=== PATIENT | male | born 1940 | race Caucasian/White ===

== ENCOUNTER 2017-08-17 13:24 | Inpatient (IN) | payer OTHER, MEDICARE ==
[2017-08-17] VITALS (9 sets, daily range): BP systolic 110–137; BP diastolic 52–81; PULSE 64–111; RESP 18–20; TEMP 97.7–98; O2SAT 91–98
[~2017-08-17] VITALS: Ht 177.8 cm; Wt 109.4 kg
[~2017-08-17 13:24] MED LIST: ASPI325T PO; ISOS30; LISI2.5T55 PO; METO50CR OR; SIMV80TA OR; SYMB80AE INH
[2017-08-17] MEDS ORDERED: ALLO100T PO (13:46)
[2017-08-17] MEDS ORDERED: APIX5TAB PO (13:46)
[2017-08-17] MEDS ORDERED: VITA10002 PO (13:46)
[2017-08-17] MEDS ORDERED: FURO40TA PO (13:46)
[2017-08-17] MEDS ORDERED: METO1TAB42 PO (13:46)
[2017-08-17] MEDS ORDERED: ASPI-516 CHEW (13:46)
[2017-08-17] MEDS ORDERED: SYMB80AE INH (13:46)
[2017-08-17] MEDS ORDERED: VITA1000 PO (13:46)
[2017-08-17] MEDS ORDERED: ROSU20 PO (13:46)
[2017-08-17] MEDS ORDERED: LISI10TA3 PO (13:46)
[2017-08-17] MEDS ORDERED: ISOS20TA PO (13:46)
[2017-08-17] MEDS ORDERED: SODIUM CHLORIDE 0.9% FLUSH 10 ML FLUSH IVF PRN (14:00)
[2017-08-17] MEDS: RESP: ALBUTEROL 2.5 MG/IPRATROPIUM 0.5 MG NEB (SCH) INH (14:00)
--- NOTE | 2017-08-17 14:13 | PD ---
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 Patient reports no sick contacts, reports that for the past 4-5 days, he has been coughing and bring up a thick greenish sputum. Reports that he has been feeling progressively shortness of breath today. Reports that he did have a fever on his first day of symptoms. Denies any recent travels/trips. He does follow up with Dr. Monk with cardiology. Reports that he was supposed to go for a holter monitor for abnormal rhythms - he thinks that he may have a fib as he is on eliquis and for an abnormal heart rhythm. PFSH Past Medical History Asthma: No Blood Disorders: No Anxiety: No Depression: No Heart Rhythm Problems: Yes Cancer: No Cardiac Catheterization: Yes Cardiovascular Problems: Yes (5 WAY BYPASS) High Cholesterol: Yes Chemotherapy: No Chest Pain: Yes Congestive Heart Failure: No COPD: No Coronary Artery Disease: Yes Diabetes: No Endocrine: No Genitourinary: No Hypertension: Yes Immune Disorder: No Musculoskeletal: No Neurologic: No Psychiatric: No Respiratory: Yes Myocardial Infarction: Yes Radiation Therapy: No Sleep Apnea: Yes Thyroid Disease: No PNEUMOCCOCAL Vaccine (Year): 1 Past Surgical History Cardiac Surgery: Yes Coronary Artery Bypass Graft: Yes (2002) Other Surgery: Yes (TUMOR LT SIDE OF NECK) Social History Alcohol Use: Yes (SOCIAL) Tobacco Use: Yes (ONE PACK DAILY) Allergies-Medications (Allergen,Severity, Reaction): Coded Allergies: No Known Allergies (Verified , 06/25/10) Reported Meds & Prescriptions Reported Meds & Active Scripts Active Reported Allopurinol 100 Mg Tab 100 Mg PO DAILY Eliquis (Apixaban) 5 Mg Tab 5 Mg PO BID Vitamin B-12 (Cyanocobalamin) 1,000 Mcg Tab 1,000 Mcg PO DAILY Metoprolol Succinate ER 24 HR (Metoprolol Succinate) 25 Mg Tab 25 Mg PO DAILY Furosemide 40 Mg Tab 40 Mg PO DAILY Vitamin D-1000 (Cholecalciferol) 1,000 Unit Tab 2,000 Units PO DAILY Lisinopril 10 Mg Tab 25 Mg PO DAILY Crestor (Rosuvastatin Calcium) 20 Mg Tab 20 Mg PO DAILY Isosorbide Mononitrate 20 Mg Tab 60 Mg PO DAILY Take 2 doses 7 hours apart. Symbicort Inh (Budesonide/Formoterol Fumarate) 80-4.5 Mcg/Act Aero 2 Puff INH Q12HR Aspirin 81 Mg Chew 81 Mg CHEW DAILY Review of Systems General / Constitutional: Positive: Fever Eyes: No: Visual changes HENT: No: Headaches Cardiovascular: Positive: Dyspnea on exertion, No: Chest Pain or Discomfort Respiratory: Positive: Cough, Shortness of Breath, Wheezing Gastrointestinal: No: Abdominal Pain Genitourinary: No: Dysuria Musculoskeletal: Positive: Edema, No: Pain Skin: No Rash Neurologic: No: Weakness Psychiatric: No: Depression Endocrine: No: Polydipsia Hematologic/Lymphatic: No: Easy Bruising Physical Exam Narrative GENERAL: moderate distress SKIN: Focused skin assessment warm/dry. HEAD: Atraumatic. Normocephalic. EYES: Pupils equal and round. No scleral icterus. No injection or drainage. ENT: No nasal bleeding or discharge. Mucous membranes pink and moist. NECK: Trachea midline. No JVD. CARDIOVASCULAR: Regular rate and rhythm. No murmur appreciated. RESPIRATORY: No accessory muscle use. Patient wheezing on exam. Breath sounds equal bilaterally. GASTROINTESTINAL: Abdomen soft, non-tender, nondistended. Hepatic and splenic margins not palpable. MUSCULOSKELETAL: No obvious deformities. No clubbing. No cyanosis. +2 pedal edema. NEUROLOGICAL: Awake and alert. No obvious cranial nerve deficits. Motor grossly within normal limits. Normal speech. PSYCHIATRIC: Appropriate mood and affect; insight and judgment normal. Data Data Last Documented VS Vital Signs Date Time Temp Pulse Resp B/P (MAP) Pulse Ox O2 Delivery O2 Flow Rate FiO2 08/17/17 15:01 94 20 137/81 (99) 97 Nasal Cannula 2.00 08/17/17 13:25 98.0 Orders Orders Electrocardiogram (08/17/17 13:47) Complete Blood Count With Diff (08/17/17 13:47) Comprehensive Metabolic Panel (08/17/17 13:47) Influenzae A/B Antigen (08/17/17 13:47) Urinalysis - C+S If Indicated (08/17/17 13:47) Blood Culture (08/17/17 13:47) Chest, Single Ap (08/17/17 13:47) Ecg Monitoring (08/17/17 13:47) Iv Access Insert/Monitor (08/17/17 13:47) Oximetry (08/17/17 13:47) Sodium Chloride 0.9% Flush (Ns Flush) (08/17/17 14:00) Albuterol-Ipratropium Neb (Duoneb Neb) (08/17/17 14:00) B-Type Natriuretic Peptide (08/17/17 13:47) Ckmb (Isoenzyme) Profile (08/17/17 13:47) Troponin I (08/17/17 13:47) Methylprednisolone So Succ Inj (Solumedr (08/17/17 15:45) Ceftriaxone Inj (Rocephin Inj) (08/17/17 15:45) Azithromycin Inj (Zithromax Inj) (08/17/17 15:45) Admit Order (Ed Use Only) (08/17/17 16:03) Labs Laboratory Tests Test 08/17/17 13:55 White Blood Count 11.1 TH/MM3 Red Blood Count 4.57 MIL/MM3 Hemoglobin 13.5 GM/DL Hematocrit 41.6 % Mean Corpuscular Volume 91.1 FL Mean Corpuscular Hemoglobin 29.5 PG Mean Corpuscular Hemoglobin Concent 32.4 % Red Cell Distribution Width 16.6 % Platelet Count 169 TH/MM3 Mean Platelet Volume 8.9 FL Neutrophils (%) (Auto) 86.3 % Lymphocytes (%) (Auto) 5.1 % Monocytes (%) (Auto) 8.4 % Eosinophils (%) (Auto) 0.0 % Basophils (%) (Auto) 0.2 % Neutrophils # (Auto) 9.6 TH/MM3 Lymphocytes # (Auto) 0.6 TH/MM3 Monocytes # (Auto) 0.9 TH/MM3 Eosinophils # (Auto) 0.0 TH/MM3 Basophils # (Auto) 0.0 TH/MM3 CBC Comment DIFF FINAL Differential Comment Blood Urea Nitrogen 61 MG/DL Creatinine 3.37 MG/DL Random Glucose 115 MG/DL Total Protein 7.5 GM/DL Albumin 3.3 GM/DL Calcium Level 8.6 MG/DL Alkaline Phosphatase 112 U/L Aspartate Amino Transf (AST/SGOT) 19 U/L Alanine Aminotransferase (ALT/SGPT) 33 U/L Total Bilirubin 2.2 MG/DL Sodium Level 142 MEQ/L Potassium Level 4.5 MEQ/L Chloride Level 106 MEQ/L Carbon Dioxide Level 26.2 MEQ/L Anion Gap 10 MEQ/L Estimat Glomerular Filtration Rate 18 ML/MIN Total Creatine Kinase 52 U/L Troponin I LESS THAN 0.02 NG/ML B-Type Natriuretic Peptide 455 PG/ML MDM Medical Decision Making Medical Screen Exam Complete: Yes Emergency Medical Condition: Yes Medical Record Reviewed: Yes Interpretation(s) EKG at 1358: Afib at 99bpm, qt/qtc: 380/436, no acute st or t wave changes Vital Signs Date Time Temp Pulse Resp B/P (MAP) Pulse Ox O2 Delivery O2 Flow Rate FiO2 08/17/17 13:25 98.0 102 20 127/64 (85) 91 Room Air Differential Diagnosis chf exacerbation, copd, pneumonia, influenza, acs Narrative Course During the course of the patients emergency department visit, the patients history, examination, and differential diagnosis were reviewed with the patient. The patient was placed on a monitor tech with oximetry and frequent blood pressure monitoring. The patient had 20 gauge IV access obtained and blood work sent for analysis. The patient was initially provided: duoneb, steroids, and azithromycin and rocephin The patients laboratory studies were reviewed and remarkable for: Laboratory Tests Test 08/17/17 13:55 White Blood Count 11.1 TH/MM3 (4.0-11.0) Red Blood Count 4.57 MIL/MM3 (4.50-5.90) Hemoglobin 13.5 GM/DL (13.0-17.0) Hematocrit 41.6 % (39.0-51.0) Mean Corpuscular Volume 91.1 FL (80.0-100.0) Mean Corpuscular Hemoglobin 29.5 PG (27.0-34.0) Mean Corpuscular Hemoglobin Concent 32.4 % (32.0-36.0) Red Cell Distribution Width 16.6 % (11.6-17.2) Platelet Count 169 TH/MM3 (150-450) Mean Platelet Volume 8.9 FL (7.0-11.0) Neutrophils (%) (Auto) 86.3 % (16.0-70.0) Lymphocytes (%) (Auto) 5.1 % (9.0-44.0) Monocytes (%) (Auto) 8.4 % (0.0-8.0) Eosinophils (%) (Auto) 0.0 % (0.0-4.0) Basophils (%) (Auto) 0.2 % (0.0-2.0) Neutrophils # (Auto) 9.6 TH/MM3 (1.8-7.7) Lymphocytes # (Auto) 0.6 TH/MM3 (1.0-4.8) Monocytes # (Auto) 0.9 TH/MM3 (0-0.9) Eosinophils # (Auto) 0.0 TH/MM3 (0-0.4) Basophils # (Auto) 0.0 TH/MM3 (0-0.2) CBC Comment DIFF FINAL Differential Comment Blood Urea Nitrogen 61 MG/DL (7-18) Creatinine 3.37 MG/DL (0.60-1.30) Random Glucose 115 MG/DL (74-106) Total Protein 7.5 GM/DL (6.4-8.2) Albumin 3.3 GM/DL (3.4-5.0) Calcium Level 8.6 MG/DL (8.5-10.1) Alkaline Phosphatase 112 U/L (45-117) Aspartate Amino Transf (AST/SGOT) 19 U/L (15-37) Alanine Aminotransferase (ALT/SGPT) 33 U/L (12-78) Total Bilirubin 2.2 MG/DL (0.2-1.0) Sodium Level 142 MEQ/L (136-145) Potassium Level 4.5 MEQ/L (3.5-5.1) Chloride Level 106 MEQ/L (98-107) Carbon Dioxide Level 26.2 MEQ/L (21.0-32.0) Anion Gap 10 MEQ/L (5-15) Estimat Glomerular Filtration Rate 18 ML/MIN (>89) Total Creatine Kinase 52 U/L (39-308) Troponin I LESS THAN 0.02 NG/ML B-Type Natriuretic Peptide 455 PG/ML (0-100) Radiology studies were reviewed and remarkable for: Last Impressions Chest X-Ray 08/17/17 4337 Signed Impressions: Service Date/Time: Thursday, August 17, 2017 14:19 - CONCLUSION: 1. Compensated cardiomegaly. 2. Postsurgical changes characteristic of prior CABG. 3. No acute infiltrate. Piter Aponte MD wbc 11.1, hbg 13.5, hct 41.6, platelet 169 bun/cr: 61/3.37 - patient reports that he is currently being worked up for "kidney issues" and last cr was 3.0 Patient has been pancultured, will treat for brochitis with azithromycin and rocephin. case reviewed with dr. alvarenga who accepts pt to service for observation Diagnosis Primary Impression: Acute bronchitis Qualified Codes: J20.9 - Acute bronchitis, unspecified Additional Impression: Renal failure (ARF), acute on chronic Qualified Codes: N17.9 - Acute kidney failure, unspecified; N18.9 - Chronic kidney disease, unspecified Admitting Information Admitting Physician Requests: Observation Aleta Laguna DO Aug 17, 2017 14:13
[2017-08-17 14:45] LABS: AUTOMATED NEUTROPHIL # 9.6 TH/MM3 (1.8-7.7); BASOPHIL % 0.2 % (0.0-2.0); HEMATOCRIT 41.6 % (39.0-51.0); HEMO FLAGS DIFF FINAL; LYMPH % 5.1 % (9.0-44.0); LYMPHOCYTE # 0.6 TH/MM3 (1.0-4.8); MEAN CELL VOLUME 91.1 FL (80.0-100.0); MEAN CORPUSCULAR HEMOGLOBIN 29.5 PG (27.0-34.0); MEAN CORPUSCULAR HGB CONC 32.4 % (32.0-36.0); MONO % 8.4 % (0.0-8.0); NEUT % 86.3 % (16.0-70.0); PLATELET COUNT 169 TH/MM3 (150-450); RED BLOOD COUNT 4.57 MIL/MM3 (4.50-5.90); RED CELL DISTRIBUTION WIDTH 16.6 % (11.6-17.2); WHITE BLOOD COUNT 11.1 TH/MM3 (4.0-11.0)
[2017-08-17 15:04] LABS: ALT (GPT) 33 U/L (12-78); ANION GAP 10 MEQ/L (5-15); AST (GOT) 19 U/L (15-37); BICARBONATE 26.2 MEQ/L (21.0-32.0); BLOOD UREA NITROGEN 61 MG/DL (7-18); CHLORIDE 106 MEQ/L (98-107); GLOMERULAR FILTRATION RATE 18 ML/MIN (>89); POTASSIUM 4.5 MEQ/L (3.5-5.1); SODIUM (NA) 142 MEQ/L (136-145)
--- NOTE | 2017-08-17 15:06 | RADRPT ---
EXAM DATE/TIME: 08/17/2017 14:19 [facility] COMPARISON: No previous studies available for comparison. INDICATIONS : Shortness of breath, coughing MEDICAL HISTORY : Hypertension. SURGICAL HISTORY : CABG. ENCOUNTER: Initial ACUITY: 4 - 6 days PAIN SCORE: 0/10 LOCATION: Bilateral chest FINDINGS: A single view of the chest demonstrates lungs to be symmetrically aerated with no acute infiltrate or effusion. Heart size is prominent but appears to be well compensated. Postsurgical changes with find ings of prior CABG and possibly a CALZADA graft. CONCLUSION: 1. Compensated cardiomegaly. 2. Postsurgical changes characteristic of prior CABG. 3. No acute infiltrate. Piter Aponte MD on August 17, 2017 at 15:01 Board Certified Radiologist. This report was verified electronically.
[2017-08-17 15:07] LABS: ALKALINE PHOSPHATASE 112 U/L (45-117); TOTAL BILIRUBIN ADULT 2.2 MG/DL (0.2-1.0)
[2017-08-17 15:09] LABS: CREATINE KINASE 52 U/L (39-308)
[2017-08-17] MEDS ORDERED: AZITHROMYCIN INJ 500 MG in SODIUM CHLOR 0.9% 250 ML INJ 250 ML IV ONE (15:45)
[2017-08-17] MEDS ORDERED: cefTRIAXone INJ 1,000 MG in SODIUM CHLORIDE 0.9% INJ 100 ML IV ONE (15:45)
[2017-08-17] MEDS ORDERED: methylPREDNISolone SOD SUCC 125 MG/2 ML VIAL IV PUSH ONE (15:45)
[2017-08-17] MEDS ORDERED: NALOXONE HCL 0.4 MG/ML AMP IV PUSH PRN (16:15)
[2017-08-17] MEDS ORDERED: LACTULOSE SYRUP 20 GM/30 ML CUP PO PRN (16:15)
[2017-08-17] MEDS ORDERED: ONDANSETRON HCL 4 MG/2 ML VIAL IVP PRN (16:15)
[2017-08-17] MEDS ORDERED: BISACODYL 10 MG SUPP RECTAL PRN (16:15)
[2017-08-17] MEDS ORDERED: SENNOSIDES 8.6 MG TAB PO PRN (16:15)
[2017-08-17] MEDS ORDERED: MAGNESIUM HYDROXIDE SUSP 30 ML CUP PO PRN (16:15)
[2017-08-17] MEDS ORDERED: SODIUM CHLORIDE 0.9% FLUSH 10 ML FLUSH IV FLUSH PRN (16:15)
[2017-08-17 17:01] LABS: BLOOD, URINE NEG (NEG); COMMENT (UR) CULT NOT INDICATED; CULTURE IF INDICATED CULT NOT INDICATED; GLUCOSE,URINE NEG (NEG); HYALINE CAST, URINE 23 /lpf (RARE); KETONE, URINE NEG (NEG); MUCUS URINE FEW /lpf (OCC); NITRITE,URINE NEG (NEG); URINE COLOR YELLOW (YELLW/STRAW)
--- NOTE | 2017-08-17 17:24 | HHI.HP ---
HPI Service [facility] Primary Care Physician López Turner MD Admission Diagnosis COPD exacerbation Diagnoses: Chief Complaint: Increasing cough, increasing shortness of breath, expectorating green phlegm Travel History International Travel<30 Days: No Contact w/Intl Traveler <30 Da: No Traveled to Known Affected Are: No History of Present Illness Written by Josesito Luna, acting as scribe for Dr. Marquez on 08/17/17 at 17: 10. Patient is a 77-year-old male with primary medical history of HTN, CAD, gout, HLD, CKD 3, atrial fibrillation who came into the hospital with increasing shortness of breath, cough for 4-5 days, expectoration of green phlegm. Patient states for the past 4-5 days he is coughing and getting short of breath. As per significant other who was at the bedside, patient has orthopnea and able to "lay down in bed for the past 4-5 days, febrile 100. something." Patient also complains of abdominal pain secondary to increased coughing. Reports bilateral lower extremity edema that has been ongoing problem but if he elevates his legs it decreases in size. Patient is being followed by Dr. Monk in outpatient, denies he has any history of congestive heart failure but he is being worked up right now at Dr. Monk's office work and he is due for a Holter monitor. Patient and significant other states that they were just at the office of Dr. Monk prior to do stress test. They're unaware of any echocardiogram however did not know if it is being done. Patient is also due for a renal ultrasound study this week and also a liver ultrasound. Denies pain and discomfort. Denies chest pain, palpitations, headaches, dizziness. Denies n/v/d. Denies dysuria. Review of Systems Except as stated in HPI: all other systems reviewed are Neg Past Family Social History Past Medical History HTN Gout CAD HLD A. fib ?CHF Past Surgical History CABG 5 Reported Medications Reported Meds & Active Scripts Active Reported Allopurinol 100 Mg Tab 100 Mg PO DAILY Eliquis (Apixaban) 5 Mg Tab 5 Mg PO BID Vitamin B-12 (Cyanocobalamin) 1,000 Mcg Tab 1,000 Mcg PO DAILY Metoprolol Succinate ER 24 HR (Metoprolol Succinate) 25 Mg Tab 25 Mg PO DAILY Furosemide 40 Mg Tab 40 Mg PO DAILY Vitamin D-1000 (Cholecalciferol) 1,000 Unit Tab 2,000 Units PO DAILY Lisinopril 10 Mg Tab 25 Mg PO DAILY Crestor (Rosuvastatin Calcium) 20 Mg Tab 20 Mg PO DAILY Isosorbide Mononitrate 20 Mg Tab 60 Mg PO DAILY Take 2 doses 7 hours apart. Symbicort Inh (Budesonide/Formoterol Fumarate) 80-4.5 Mcg/Act Aero 2 Puff INH Q12HR Aspirin 81 Mg Chew 81 Mg CHEW DAILY Allergies: Coded Allergies: No Known Allergies (Verified , 06/25/10) Active Ordered Medications Current Medications Medications (Trade) Dose Ordered Sig/Melody Route Start Time Stop Time Status Last Admin (NS Flush) 2 ml UNSCH PRN IV FLUSH 08/17/17 16:15 (NS Flush) 2 ml BID IV FLUSH 08/17/17 21:00 (Zofran Inj) 4 mg Q6H PRN IVP 08/17/17 16:15 (Heparin Inj) 5,000 units Q12H SQ 08/17/17 17:00 (Narcan Inj) 0.4 mg UNSCH PRN IV PUSH 08/17/17 16:15 (Milk Of Magnesia Liq) 30 ml Q12H PRN PO 08/17/17 16:15 (Senokot) 17.2 mg Q12H PRN PO 08/17/17 16:15 (Dulcolax Supp) 10 mg DAILY PRN RECTAL 08/17/17 16:15 (Lactulose Liq) 30 ml DAILY PRN PO 08/17/17 16:15 Ceftriaxone Sodium 1000 mg/ Sodium Chloride 100 ml @ 200 mls/hr Q24H IV 08/18/17 16:00 (Zithromax) 250 mg DAILY PO 08/18/17 09:00 (Duoneb Neb) 1 ampule Q6HR NEB NEB 08/17/17 22:00 (Deltasone) 20 mg BID PO 08/17/17 21:00 Family History Dad of cancer Mom natural Social History Occasional alcohol use [place], quit a month ago has been smoking 2 pack per week prior to quitting, has history of 1 pack per day 30 years Denies illicit drug use Physical Exam Vital Signs Vital Signs Date Time Temp Pulse Resp B/P (MAP) Pulse Ox O2 Delivery O2 Flow Rate FiO2 08/17/17 15:01 94 20 137/81 (99) 97 Nasal Cannula 2.00 08/17/17 14:05 97 Nasal Cannula 2.00 08/17/17 13:25 98.0 102 20 127/64 (85) 91 Room Air Physical Exam GENERAL: This is a well-nourished, well-developed patient, in no apparent distress. SKIN: Cool and dry. HEAD: Atraumatic. Normocephalic. No temporal or scalp tenderness. EYES: Pupils equal round and reactive. Extraocular motions intact. No scleral icterus. No injection or drainage. ENT: Nose without bleeding. Uvula midline. Airway patent. NECK: Trachea midline. Supple. CARDIOVASCULAR: Regular rate and rhythm without murmurs, gallops, or rubs. RESPIRATORY: Crackles. Minimal wheezes. Coarse Breath sounds. GASTROINTESTINAL: Abdomen soft, non-tender, nondistended. No hepato-splenomegaly , or palpable masses. No guarding. MUSCULOSKELETAL: Extremities without clubbing, cyanosis. Bilateral lower extremity +2 edema NEUROLOGICAL: Awake and alert. Cranial nerves II through XII intact. Motor and sensory grossly within normal limits. Normal speech. Laboratory Laboratory Tests Test 08/17/17 13:55 08/17/17 16:02 White Blood Count 11.1 Red Blood Count 4.57 Hemoglobin 13.5 Hematocrit 41.6 Mean Corpuscular Volume 91.1 Mean Corpuscular Hemoglobin 29.5 Mean Corpuscular Hemoglobin Concent 32.4 Red Cell Distribution Width 16.6 Platelet Count 169 Mean Platelet Volume 8.9 Neutrophils (%) (Auto) 86.3 Lymphocytes (%) (Auto) 5.1 Monocytes (%) (Auto) 8.4 Eosinophils (%) (Auto) 0.0 Basophils (%) (Auto) 0.2 Neutrophils # (Auto) 9.6 Lymphocytes # (Auto) 0.6 Monocytes # (Auto) 0.9 Eosinophils # (Auto) 0.0 Basophils # (Auto) 0.0 CBC Comment DIFF FINAL Differential Comment Blood Urea Nitrogen 61 Creatinine 3.37 Random Glucose 115 Total Protein 7.5 Albumin 3.3 Calcium Level 8.6 Alkaline Phosphatase 112 Aspartate Amino Transf (AST/SGOT) 19 Alanine Aminotransferase (ALT/SGPT) 33 Total Bilirubin 2.2 Sodium Level 142 Potassium Level 4.5 Chloride Level 106 Carbon Dioxide Level 26.2 Anion Gap 10 Estimat Glomerular Filtration Rate 18 Total Creatine Kinase 52 Troponin I LESS THAN 0.02 B-Type Natriuretic Peptide 455 Urine Color YELLOW Urine Turbidity HAZY Urine pH 5.0 Urine Specific [place] 1.013 Urine Protein 30 Urine Glucose (UA) NEG Urine Ketones NEG Urine Occult Blood NEG Urine Nitrite NEG Urine Bilirubin NEG Urine Urobilinogen 2.0 Urine Leukocyte Esterase NEG Urine WBC 2 Urine Hyaline Casts 23 Urine Mucus FEW Microscopic Urinalysis Comment CULT NOT INDICATED Date/Time Source Procedure Growth Status 08/17/17 14:00 Blood Peripheral Aerobic Blood Culture Pending Received 08/17/17 14:00 Blood Peripheral Anaerobic Blood Culture Pending Received 08/17/17 15:00 Nasal Washing Influenza Types A,B Antigen (CLAUDIA) - Final NEGATIVE FOR FLU A AND B ANTIGEN.... Complete Result Diagram: 08/17/17 1355 08/17/17 1355 Caprini VTE Risk Assessment Caprini VTE Risk Assessment: Mod/High Risk (score >= 2) Caprini Risk Assessment Model Point Value = 1 Point Value = 2 Point Value = 3 Point Value = 5 Age 41-60 Minor surgery BMI > 25 kg/m2 Swollen legs Varicose veins or History of unexplained or recurrent spontaneous Oral contraceptives or hormone replacement Sepsis (< 1 month) Serious lung disease, including pneumonia (< 1 month) Abnormal pulmonary function Acute myocardial infarction Congestive heart failure (< 1 month) History of inflammatory bowel disease Medical patient at bed rest Age 61-74 Arthroscopic surgery Major open surgery (> 45 min) Laparoscopic surgery (> 45 min) Malignancy Confined to bed (> 72 hours) Immobilizing plaster cast Central venous access Age >= 75 History of VTE Family history of VTE Factor V Leiden Prothrombin [id number] Lupus anticoagulant Anticardiolipin antibodies Elevated serum homocysteine Heparin-induced thrombocytopenia Other congenital or acquired thrombophilia Stroke (< 1 month) Elective arthroplasty Hip, pelvis, or leg fracture Acute spinal cord injury (< 1 month) Prophylaxis Regimen Total Risk Factor Score Risk Level Prophylaxis Regimen 0-1 Low Early ambulation 2 Moderate Order ONE of the following: *Sequential Compression Device (SCD) *Heparin 5000 units SQ BID 3-4 Higher Order ONE of the following medications: *Heparin 5000 units SQ TID *Enoxaparin/Lovenox 40 mg SQ daily (WT < 150 kg, CrCl > 30 mL/min) *Enoxaparin/Lovenox 30 mg SQ daily (WT < 150 kg, CrCl > 10-29 mL/min) *Enoxaparin/Lovenox 30 mg SQ BID (WT < 150 kg, CrCl > 30 mL/min) AND/OR *Sequential Compression Device (SCD) 5 or more Highest Order ONE of the following medications: *Heparin 5000 units SQ TID (Preferred with Epidurals) *Enoxaparin/Lovenox 40 mg SQ daily (WT < 150 kg, CrCl > 30 mL/min) *Enoxaparin/Lovenox 30 mg SQ daily (WT < 150 kg, CrCl > 10-29 mL/min) *Enoxaparin/Lovenox 30 mg SQ BID (WT < 150 kg, CrCl > 30 mL/min) AND *Sequential Compression Device (SCD) Assessment and Plan Problem List: (1) Renal failure (ARF), acute on chronic ICD Code: N17.9 - Acute kidney failure, unspecified; N18.9 - Chronic kidney disease, unspecified Status: Acute Assessment and Plan Patient is a 77-year-old male with primary medical history of HTN, CAD, gout, HLD, CKD 3, atrial fibrillation who came into the hospital with increasing shortness of breath, cough for 4-5 days, expectoration of green phlegm. COPD exacerbation vs CHF exacerbation Acute Bronchitis - Suspect CHF hx CABG, Suspect COPD exacerbation former smoker - Chest x-ray showed compensated cardiomegaly. 2. Postsurgical changes characteristic of prior CABG no acute infiltrate - BNP 455, edema - Check blood cultures - IV antibiotic ceftriaxone, azithromycin IV - Prednisone 20 mg twice a day - DuoNeb scheduled, when necessary - Follow up labs in a.m. - Check serial troponin, check serial EKG - Consult Dr. Monk - Echocardiogram Acute kidney injury, on chronic kidney disease stage III - WELL TESTER 3.37/ BUN 61 - Avoid nephrotoxins - May need gentle fluid hydration. Monitor for fluid overload. - Monitor renal indicis - Patient is being seen by Dr. Arnel Turner, we'll ask nursing to give medical information on patient's previous creatinine. - Patient is due for a renal ultrasound in outpatient as per his report. May consider US kidneys. DVT prop SCDs Code Status Full code Discussed Condition With Patient, nursing, ED attending Physician Certification 2 Midnight Certification Type: Admission for Inpatient Services Order for Inpatient Services The services are ordered in accordance with Medicare regulations or non- Medicare payer requirements, as applicable. In the case of services not specified as inpatient-only, they are appropriately provided as inpatient services in accordance with the 2-midnight benchmark. Estimated LOS (days): 2 days is the estimated time the patient will need to remain in the hospital, assuming treatment plan goals are met and no additional complications. Post-Hospital Plan: Home Notes: This note was transcribed by janny Luna. I, Dr. Mango Marquez personally performed the history, physical exam, and medical decision making; and confirmed the accuracy of the information in the transcribed note. Authenticated by Dr. Mango Marquez on 08/17/17 at 22:59. Problem Qualifiers (1) Renal failure (ARF), acute on chronic: Qualified Codes: N17.9 - Acute kidney failure, unspecified; N18.9 - Chronic kidney disease, unspecified Josesito Zelaya Aug 17, 2017 17:24 Mango Marquez MD Aug 17, 2017 23:00
[2017-08-17] MEDS: HEPARIN SODIUM - SQ 10,000 UNITS/ML VIAL SQ SCH (17:55)
[2017-08-17] MEDS ORDERED: FUROSEMIDE 40 MG/4 ML VIAL IV PUSH ONE (18:45)
[2017-08-17] MEDS: SODIUM CHLORIDE 0.9% FLUSH 10 ML FLUSH IV FLUSH SCH (20:13)
[2017-08-17] MEDS: predniSONE 20 MG TAB PO SCH (20:13)
[2017-08-17] MEDS: BUDESONIDE-FORMOTEROL 80/4.5 MCG INHALER INH SCH (20:14)
[2017-08-17] MEDS ORDERED: APIXABAN 5 MG TABLET PO SCH (21:00)
[2017-08-17] MEDS: RESP: ALBUTEROL 2.5 MG/IPRATROPIUM 0.5 MG NEB (SCH) NEB (21:02)
[2017-08-18] VITALS (13 sets, daily range): BP systolic 102–133; BP diastolic 56–89; PULSE 97–152; RESP 16–20; TEMP 97.5–98.8; O2SAT 93–96
[2017-08-18] MEDS: RESP: ALBUTEROL 2.5 MG/IPRATROPIUM 0.5 MG NEB (SCH) NEB ×4 (03:58→20:14)
[2017-08-18] MEDS: HEPARIN SODIUM - SQ 10,000 UNITS/ML VIAL SQ SCH ×2 (05:19→16:45)
[2017-08-18 07:48] LABS: AUTOMATED NEUTROPHIL # 9.2 TH/MM3 (1.8-7.7); HEMATOCRIT 42.4 % (39.0-51.0); HEMO FLAGS DIFF FINAL; LYMPHOCYTE # 0.3 TH/MM3 (1.0-4.8); MEAN CELL VOLUME 92.2 FL (80.0-100.0); MEAN CORPUSCULAR HEMOGLOBIN 30.1 PG (27.0-34.0); MEAN CORPUSCULAR HGB CONC 32.7 % (32.0-36.0); MONO % 1.3 % (0.0-8.0); NEUT % 95.7 % (16.0-70.0); PLATELET COUNT 150 TH/MM3 (150-450); RED CELL DISTRIBUTION WIDTH 16.6 % (11.6-17.2); WHITE BLOOD COUNT 9.6 TH/MM3 (4.0-11.0)
[2017-08-18 08:18] LABS: BICARBONATE 29.2 MEQ/L (21.0-32.0); POTASSIUM 4.1 MEQ/L (3.5-5.1)
[2017-08-18] MEDS ORDERED: ALLOPURINOL 100 MG TAB PO SCH (09:00)
[2017-08-18] MEDS ORDERED: NON-FORMULARY DRUG (Rosuvastatin (Crestor) 20 MG) PO SCH (09:00)
[2017-08-18] MEDS ORDERED: LISINOPRIL 10 MG TAB PO SCH (09:00)
[2017-08-18] MEDS: CYANOCOBALAMIN 1,000 MCG TAB PO SCH (10:14)
[2017-08-18] MEDS: AZITHROMYCIN 250 MG TAB PO SCH (10:14)
[2017-08-18] MEDS: BUDESONIDE-FORMOTEROL 80/4.5 MCG INHALER INH SCH ×2 (10:14→22:35)
[2017-08-18] MEDS: predniSONE 20 MG TAB PO SCH ×2 (10:14→22:35)
[2017-08-18] MEDS: ATORVASTATIN 40 MG TAB PO SCH (10:14)
[2017-08-18] MEDS: CHOLECALCIFEROL (VIT D3) 1000 UNIT TAB PO SCH (10:14)
[2017-08-18] MEDS: ISOSORBIDE MONONITRATE 60 MG TAB PO SCH (10:15)
[2017-08-18] MEDS: SODIUM CHLORIDE 0.9% FLUSH 10 ML FLUSH IV FLUSH SCH ×2 (10:15→21:00)
[2017-08-18] MEDS: ASPIRIN 81 MG CHEW TAB CHEW SCH (10:15)
[2017-08-18] MEDS: METOPROLOL SUCCINATE 25 MG EXTENDED RELEASE TAB PO SCH (10:16)
--- NOTE | 2017-08-18 12:56 | HHI.PR ---
Subjective Remarks Slight improvement compared to yesterday. Patient does remain oxygen dependent. Wheezing remains. Fluid retention remains. Productive cough remains. No fever. Objective Vital Signs Date Time Temp Pulse Resp B/P (MAP) Pulse Ox O2 Delivery O2 Flow Rate FiO2 08/18/17 12:47 152 08/18/17 12:30 97.5 110 18 111/76 (88) 93 08/18/17 08:38 96 Nasal Cannula 3.00 08/18/17 08:07 122 08/18/17 07:58 97.6 124 20 133/89 (104) 94 08/18/17 05:16 107 16 126/81 (96) 96 08/18/17 04:15 97 08/18/17 00:22 97.9 112 18 115/67 (83) 94 08/17/17 23:59 110 08/17/17 21:11 106 19 125/79 (94) 95 08/17/17 21:04 Nasal Cannula 2.00 08/17/17 20:03 110 08/17/17 18:23 111 08/17/17 17:39 97.8 105 20 132/72 (92) 96 08/17/17 15:01 94 20 137/81 (99) 97 Nasal Cannula 2.00 08/17/17 14:05 97 Nasal Cannula 2.00 08/17/17 13:25 98.0 102 20 127/64 (85) 91 Room Air I/O 08/17/17 08/17/17 08/17/17 08/18/17 08/18/17 08/18/17 07:00 15:00 23:00 07:00 15:00 23:00 Intake Total 350 ml 220 ml Output Total 500 ml 1000 ml Balance -150 ml -780 ml Intake Oral 220 ml IV Total 350 ml Output Urine Total 500 ml 1000 ml # Voids 1 Result Diagram: 08/18/17 0555 08/18/17 0555 Objective Remarks GENERAL: NAD, A&Ox3 HEAD: Normocephalic. NECK: Supple, trachea midline. No lymphadenopathy. EYES: No scleral icterus. No injection or drainage. CARDIOVASCULAR: Regular rate and rhythm without murmurs, gallops, or rubs. RESPIRATORY: Breath sounds equal bilaterally. No accessory muscle use. Bilateral wheezing and bilateral basilar crackles. GASTROINTESTINAL: Abdomen soft, non-tender, nondistended. MUSCULOSKELETAL: No cyanosis, mild edema in lower extremities. SKIN: Warm and dry. NEURO: No focal neurological deficitis. A/P Problem List: (1) COPD with exacerbation ICD Code: J44.1 - Chronic obstructive pulmonary disease with (acute) exacerbation (2) Acute exacerbation of CHF (congestive heart failure) ICD Code: I50.9 - Heart failure, unspecified (3) Renal failure (ARF), acute on chronic ICD Code: N17.9 - Acute kidney failure, unspecified; N18.9 - Chronic kidney disease, unspecified Status: Acute (4) Acute bronchitis ICD Code: J20.9 - Acute bronchitis, unspecified Status: Acute Assessment and Plan Assessment and Plan 77-year-old male admitted secondary to CHF exacerbation and COPD exacerbation with bronchitis. COPD exacerbation Bronchitis Hypoxia Continue steroids Continue IV Rocephin and azithromycin Continue schedule duo nebs Continue as needed duo nebs Continue oxygen supplementation Follow for improvement Oxygen walk test prior to discharge CHF exacerbation History of CABG CAD Continue diuresis Echocardiogram pending Follow edema Acute kidney injury, on chronic kidney disease stage III Slight improvement today Follow renal function Avoid nephrotoxins Discontinue IV fluids HTN Continue baseline treatments Follow blood pressure Gout No exacerbation No change to maintenance therapies Atrial fibrillation Follow on telemetry No change to chronic treatments DVT prophylaxis SCDs Problem Qualifiers (1) Renal failure (ARF), acute on chronic: Qualified Codes: N17.9 - Acute kidney failure, unspecified; N18.9 - Chronic kidney disease, unspecified (2) Acute bronchitis: Qualified Codes: J20.9 - Acute bronchitis, unspecified Raghav Yeager MD Aug 18, 2017 12:56
[2017-08-18] MEDS ORDERED: guaiFENesin E.R. 600 MG TAB PO ONE (13:00)
[2017-08-18] MEDS ORDERED: FUROSEMIDE 20 MG TAB PO ONE (13:00)
--- NOTE | 2017-08-18 13:17 | EKG ---
Date Performed: 08/17/2017 Time Performed: 21:53:17 PTAGE: 77 years EKG: ATRIAL FIBRILLATION WITH RAPID VENTRICULAR RESPONSE INDETERMINATE AXIS LOW QRS VOLTAGE IN P RECORDIAL LEADS PATTERN CONSISTENT WITH PULMONARY DISEASE INCOMPLETE RIGHT BUNDLE BRANCH BLOCK ABNORM AL ECG PREVIOUS TRACING : 08/17/2017 13.58 Compared to prior tracing no significant change DOCTOR: Eugene Brock Interpretating Date/Time 08/18/2017 13:16:29
--- NOTE | 2017-08-18 13:17 | EKG ---
Date Performed: 08/17/2017 Time Performed: 13:58:02 PTAGE: 77 years EKG: ATRIAL FIBRILLATION INDETERMINATE AXIS POSSIBLE RIGHT VENTRICULAR CONDUCTION DELAY ABNORMAL ECG PREVIOUS TRACING : 10/24/2011 20.41 Since previous tracing, there is a rhythm change from Sinus rhythm to atrial fibrillation. DOCTOR: Eugene Brock Interpretating Date/Time 08/18/2017 13:15:47
--- NOTE | 2017-08-18 13:17 | EKG ---
Date Performed: 08/18/2017 Time Performed: 01:56:33 PTAGE: 77 years EKG: ATRIAL FIBRILLATION WITH RAPID VENTRICULAR RESPONSE INDETERMINATE AXIS RIGHT BUNDLE BRANCH BLOCK ABNORMAL ECG PREVIOUS TRACING : 08/17/2017 21.53 Since previous tracing, heart rate is faster, but otherwise , no significant change. DOCTOR: Eugene rBock Interpretating Date/Time 08/18/2017 13:16:58
--- NOTE | 2017-08-18 14:44 | ECHRPT ---
Indication: HEART FAILURE CONCLUSIONS The left ventricular systolic function is normal with an estimated ejection fraction in the range of 55-60%. Normal left ventricular size. Wall thickness is normal. No regional wall motion abnormalities are present. The right ventricle is mildly dilated. The right atrial size is moderately dilated. There is trace tricuspid valve regurgitation. The estimated pulmonary arterial pressure is 38.3 mmHg. Trivial pulmonary valve regurgitation. BP: / HR: Rhythm: Atrial flutter MEASUREMENTS (Male / Female) Normal Values Technical Quality:Fair 2D ECHO LVOT Diameter 2.0 cm LV Ejection Fraction MOD 4C 58.3 % LV Ejection Fraction 4C AL 58.3 % M-MODE Aortic Root Diameter MM 3.5 cm LA Systolic Diameter MM 4.0 cm LA Ao Ratio MM 1.1 DOPPLER AV Peak Velocity 138.0 cm/s AV Peak Gradient 7.6 mmHg LVOT Peak Velocity 85.9 cm/s LVOT Peak Gradient 3.0 mmHg AV Area Cont Eq pk 2.0 cm MV Area PHT 3.5 cm LV E' Lateral Velocity 13.2 cm/s LV E' Septal Velocity 8.7 cm/s TR Peak Velocity 266.0 cm/s TR Peak Gradient 28.0 mmHg Right Atrial Pressure 10.0 mmHg Pulmonary Artery Systolic Pressu 38.3 mmHg Right Ventricular Systolic Press 38.3 mmHg PV Peak Velocity 103.0 cm/s PV Peak Gradient 4.2 mmHg FINDINGS LEFT VENTRICLE The left ventricular systolic function is normal with an estimated ejection fraction in the range of 55-60%. Normal left ventricular size. Wall thickness is normal. No regional wall motion abnormalities are present. RIGHT VENTRICLE The right ventricle is mildly dilated. LEFT ATRIUM The left atrial size is normal. RIGHT ATRIUM The right atrial size is moderately dilated. ATRIAL SEPTUM Normal atrial septal thickness without atrial level shunting by limited color doppler interrogation. AORTA The aortic root and proximal ascending aorta are normal in size on limited imaging. MITRAL VALVE Structurally normal mitral valve. No mitral valve stenosis or regurgitation. AORTIC VALVE Trileaflet aortic valve. No aortic valve stenosis or regurgitation. TRICUSPID VALVE Structurally normal tricuspid valve. There is trace tricuspid valve regurgitation. The estimated pulmonary arterial pressure is 38.3 mmHg. PULMONARY VALVE Trivial pulmonary valve regurgitation. VESSELS The inferior vena cava is dilated. PERICARDIUM No pericardial effusion. Keven Barnhart MD, FACC (Electronically Signed) Final Date:18 August 2017 14:43
[2017-08-18] MEDS: cefTRIAXone INJ 1,000 MG in SODIUM CHLORIDE 0.9% INJ 100 ML IV SCH (16:44)
--- NOTE | 2017-08-18 17:02 | MB ---
cc: FLY MENDEZ DO DATE OF CONSULTATION 08/18/17 REASON FOR CONSULTATION Congestive heart failure, atrial fibrillation with rapid ventricular response. HISTORY OF PRESENT ILLNESS Samson Fraga is a pleasant 77-year-old male who sees my partner Dr. Lobato in the office and presented to [facility] on August 17, 2017 due to shortness of breath and cough. He states that for the past 4-5 days he has had increased shortness of breath and bringing up green phlegm. He has also noticed a slight fever at around 100-101. Lastly, he has noticed bilateral lower extremity edema which has been somewhat of a chronic problem for him. He denies any chest pain. In seeing him, he is currently still coughing up mucus but hemodynamically stable without chest pain. During his workup, in Dr. Lobato's office he underwent a stress test which showed anterior infarction but no areas of ischemia. He was also found to have a lowered ejection fraction on echo and had a Holter monitor which showed uncontrolled atrial fibrillation. PAST MEDICAL HISTORY 1. Atrial fibrillation 2. Systolic heart failure. 3. Hypertension 4. Coronary artery disease. 5. Gout 6. Hyperlipidemia. PAST SURGICAL HISTORY 1. Coronary artery bypass graft x5 (November 04, 2003) with CALZADA to LAD, SVG to diagonal, SVG to OM1, SVG to OM2, SVG to PDA. 2. Cardiac catheterization (October 26, 2011) left main free of disease. Left circumflex small severely diseased. LAD severely disease. RCA with significant stenosis in the proximal portion. SVG to RCA is patent. SVG to diagonal patent. SVG to OM1 and OM2 appear occluded. CALZADA to LAD patent. Recommended medical therapy. ALLERGIES NO KNOWN DRUG ALLERGIES. MEDICATIONS 1. Eliquis 5 mg b.i.d. 2. Crestor 20 mg daily 3. Isosorbide mononitrate 60 mg daily 4. Toprol XL 25 mg daily 5. Lisinopril 25 mg daily 6. Aspirin 81 mg daily 7. Lasix 40 mg daily 8. Symbicort 2 puffs every 12 hours. 9. Allopurinol 100 mg daily. FAMILY HISTORY Father from cancer. Mother from natural causes. SOCIAL HISTORY The patient occasionally uses alcohol. He previously smoked one-pack per day for 30 years and quit around a month ago. Denies drug abuse. REVIEW OF SYSTEMS 14-systems were reviewed including osteopathic. Pertinent positives and negatives above otherwise negative. PHYSICAL EXAMINATION VITAL SIGNS: Temperature 97.5, heart rate 110, blood pressure 111/76, respirations 18, pulse ox 96% on 3 liters. GENERAL: The patient appears somewhat ill but in no acute distress, alert, awake and oriented x3. HEENT: Extraocular muscles intact. Mucous membranes moist. NECK: Supple. No JVD at 45 degrees. No carotid bruits heard bilaterally. Carotid upstroke is brisk in nature. HEART: Irregularly irregular. Positive first and second heart sounds with a 1/6 holosystolic murmur noted at the apex. LUNGS: Decreased breath sounds bilaterally with rhonchi scattered throughout. Minimal wheezing is noted. ABDOMEN: Soft, nontender, nondistended. No organomegaly noted. EXTREMITIES: Show 1+ pitting edema bilaterally. NEUROLOGIC: No focal deficits. SKIN: Warm, dry and intact. OSTEOPATHIC: No kyphoscoliosis, lordosis or paraspinal tender points. LABORATORY FINDINGS Hemoglobin 13.8, hematocrit 42.4, platelets 150. Potassium 4.1, BUN 67, creatinine 3.03, troponin negative x3. BNP 455. CARDIOLOGY STUDIES Electrocardiogram (August 18, 2017 at 01:56) atrial fibrillation with rapid ventricular response, right bundle branch block, no acute ST-T wave changes. Echocardiogram (August 18, 2017) ejection fraction 55-60%, RV mildly dilated, trace tricuspid regurgitation. IMPRESSION 1. COPD exacerbation with acute bronchitis. 2. Congestive heart failure which appears to be diastolic in nature, possibly due to atrial fibrillation with rapid ventricular response. 3. Atrial fibrillation with rapid ventricular response on Eliquis. 4. Acute kidney injury on chronic kidney disease stage III. 4. History of coronary artery disease with a history of coronary artery bypass graft x5. RECOMMENDATIONS 1. Mr. Fraga presented with what sounds like acute bronchitis. This will be treated by the primary team. 2. He does appear to have congestive heart failure and we will attempt to diurese him. It was felt that his ejection fraction was previously lower, but here in the hospital appears to be normalized. His previous cardiomyopathy was felt to be due to atrial fibrillation with rapid ventricular response. 3. He had a recent stress test in the office showing anterior infarction but no ischemia. 4. We will attempt to control his atrial fibrillation further with AV esteban blocking agents as possible with his blood pressure. If we are unable to control further, he may need to be placed on Digoxin or consideration of A. fib ablation. 5. He will continue on Eliquis for his atrial fibrillation. Thank you for allowing me to see Samson Fraga. If there are any questions, please do not hesitate to call. Fly Mendez DO VGP/SA /4:12 PM /4:44 PM
[2017-08-18] MEDS: DILTIAZEM HCL 30 MG TAB PO SCH ×2 (17:44→22:35)
[2017-08-18] MEDS: APIXABAN 5 MG TABLET PO SCH (22:35)
[2017-08-18] MEDS: guaiFENesin E.R. 600 MG TAB PO SCH (22:36)
[2017-08-19] VITALS (9 sets, daily range): BP systolic 90–148; BP diastolic 61–81; PULSE 110–146; RESP 18–20; TEMP 97.4–98.8; O2SAT 92–96
[2017-08-19] MEDS: RESP: ALBUTEROL 2.5 MG/IPRATROPIUM 0.5 MG NEB (SCH) NEB ×4 (03:13→21:00)
[2017-08-19 05:12] LABS: AUTOMATED NEUTROPHIL # 9.9 TH/MM3 (1.8-7.7); BASOPHIL % 0.1 % (0.0-2.0); HEMATOCRIT 38.1 % (39.0-51.0); HEMO FLAGS DIFF FINAL; LYMPH % 3.6 % (9.0-44.0); LYMPHOCYTE # 0.4 TH/MM3 (1.0-4.8); MEAN CELL VOLUME 92.1 FL (80.0-100.0); MEAN CORPUSCULAR HEMOGLOBIN 30.7 PG (27.0-34.0); MEAN CORPUSCULAR HGB CONC 33.3 % (32.0-36.0); MONO % 3.5 % (0.0-8.0); NEUT % 92.8 % (16.0-70.0); PLATELET COUNT 148 TH/MM3 (150-450); RED BLOOD COUNT 4.14 MIL/MM3 (4.50-5.90); RED CELL DISTRIBUTION WIDTH 16.5 % (11.6-17.2); WHITE BLOOD COUNT 10.7 TH/MM3 (4.0-11.0)
[2017-08-19 05:41] LABS: ALT (GPT) 35 U/L (12-78); ANION GAP 7 MEQ/L (5-15); AST (GOT) 21 U/L (15-37); BICARBONATE 33.4 MEQ/L (21.0-32.0); BLOOD UREA NITROGEN 73 MG/DL (7-18); CHLORIDE 106 MEQ/L (98-107); GLOMERULAR FILTRATION RATE 26 ML/MIN (>89); POTASSIUM 4.2 MEQ/L (3.5-5.1); SODIUM (NA) 146 MEQ/L (136-145)
[2017-08-19 05:42] LABS: ALKALINE PHOSPHATASE 100 U/L (45-117); TOTAL BILIRUBIN ADULT 0.7 MG/DL (0.2-1.0)
[2017-08-19] MEDS: DILTIAZEM HCL 30 MG TAB PO SCH ×3 (05:48→17:18)
[2017-08-19] MEDS ORDERED: FUROSEMIDE 20 MG TAB PO SCH (09:00)
[2017-08-19] MEDS: FUROSEMIDE 20 MG/2 ML VIAL IV PUSH SCH (10:18)
[2017-08-19] MEDS: predniSONE 20 MG TAB PO SCH ×2 (10:19→20:31)
[2017-08-19] MEDS: CYANOCOBALAMIN 1,000 MCG TAB PO SCH (10:19)
[2017-08-19] MEDS: ASPIRIN 81 MG CHEW TAB CHEW SCH (10:19)
[2017-08-19] MEDS: APIXABAN 5 MG TABLET PO SCH ×2 (10:19→20:31)
[2017-08-19] MEDS: METOPROLOL SUCCINATE 25 MG EXTENDED RELEASE TAB PO SCH (10:19)
[2017-08-19] MEDS: guaiFENesin E.R. 600 MG TAB PO SCH ×2 (10:19→20:31)
[2017-08-19] MEDS: AZITHROMYCIN 250 MG TAB PO SCH (10:19)
[2017-08-19] MEDS: ATORVASTATIN 40 MG TAB PO SCH (10:20)
[2017-08-19] MEDS: CHOLECALCIFEROL (VIT D3) 1000 UNIT TAB PO SCH (10:20)
[2017-08-19] MEDS: BUDESONIDE-FORMOTEROL 80/4.5 MCG INHALER INH SCH ×2 (10:20→20:32)
[2017-08-19] MEDS: ISOSORBIDE MONONITRATE 60 MG TAB PO SCH (10:20)
[2017-08-19] MEDS: SODIUM CHLORIDE 0.9% FLUSH 10 ML FLUSH IV FLUSH SCH ×2 (10:20→20:31)
[2017-08-19] MEDS ORDERED: DIGOXIN 0.5 MG/2 ML VIAL IVS STA (13:28)
--- NOTE | 2017-08-19 13:33 | PD.CARD.PN ---
Subjective Subjective Remarks No events overnight No chest pain SOB somewhat better Telemetry with consistent Afib with RVR Objective Medications Current Medications Medications (Trade) Dose Ordered Sig/Melody Route Start Time Stop Time Status Last Admin (NS Flush) 2 ml UNSCH PRN IV FLUSH 08/17/17 16:15 (NS Flush) 2 ml BID IV FLUSH 08/17/17 21:00 08/19/17 10:20 (Zofran Inj) 4 mg Q6H PRN IVP 08/17/17 16:15 (Narcan Inj) 0.4 mg UNSCH PRN IV PUSH 08/17/17 16:15 (Milk Of Magnesia Liq) 30 ml Q12H PRN PO 08/17/17 16:15 (Senokot) 17.2 mg Q12H PRN PO 08/17/17 16:15 (Dulcolax Supp) 10 mg DAILY PRN RECTAL 08/17/17 16:15 (Lactulose Liq) 30 ml DAILY PRN PO 08/17/17 16:15 Ceftriaxone Sodium 1000 mg/ Sodium Chloride 100 ml @ 200 mls/hr Q24H IV 08/18/17 16:00 08/18/17 16:44 (Zithromax) 250 mg DAILY PO 08/18/17 09:00 08/19/17 10:19 (Duoneb Neb) 1 ampule Q6HR NEB NEB 08/17/17 22:00 08/19/17 09:26 (Deltasone) 20 mg BID PO 08/17/17 21:00 08/19/17 10:19 (Aspirin Chew) 81 mg DAILY CHEW 08/18/17 09:00 08/19/17 10:19 (Symbicort 80-4.5 Mcg Inh) 2 puff Q12HR INH 08/17/17 21:00 08/19/17 10:20 (Vitamin D3) 2,000 units DAILY PO 08/18/17 09:00 08/19/17 10:20 (Vitamin B12) 1,000 mcg DAILY PO 08/18/17 09:00 08/19/17 10:19 (Imdur) 60 mg DAILY PO 08/18/17 09:00 08/19/17 10:20 (Toprol Xl) 25 mg DAILY PO 08/18/17 09:00 08/19/17 10:19 (Lipitor) 40 mg DAILY PO 08/18/17 09:00 08/19/17 10:20 (Mucinex Er) 600 mg BID PO 08/18/17 21:00 08/19/17 10:19 (Cardizem) 30 mg Q6HR PO 08/18/17 18:00 08/19/17 12:20 (Lasix Inj) 20 mg DAILY IV PUSH 08/19/17 09:00 08/19/17 10:18 (Eliquis) 5 mg BID PO 08/18/17 21:00 08/19/17 10:19 Vital Signs / I&O Vital Signs Date Time Temp Pulse Resp B/P (MAP) Pulse Ox O2 Delivery O2 Flow Rate FiO2 08/19/17 12: 97.6 130 20 108/74 (85) 95 08/19/17 09:28 96 21 08/19/17 08:14 97.7 130 20 130/70 (90) 92 08/19/17 07:00 146 08/19/17 03:54 98.8 114 18 148/81 (103) 94 08/18/17 23:54 98.8 117 18 133/79 (97) 96 08/18/17 20:16 96 Nasal Cannula 3.00 08/18/17 19:44 98.7 117 18 102/56 (71) 93 08/18/17 16:57 126 08/18/17 16:04 97.6 140 20 125/75 (92) 95 I/O 08/18/17 08/18/17 08/18/17 08/19/17 08/19/17 08/19/17 07:00 15:00 23:00 07:00 15:00 23:00 Intake Total 220 ml 250 ml 100 ml Output Total 1000 ml Balance -780 ml 250 ml 100 ml Intake Oral 220 ml 150 ml 100 ml IV Total 100 ml Output Urine Total 1000 ml Physical Exam GENERAL: NAD, AAOx3 SKIN: Warm and dry. HEAD: Atraumatic. Normocephalic. EYES: Pupils equal and round. No scleral icterus. No injection or drainage. ENT: No nasal bleeding or discharge. Mucous membranes pink and moist. NECK: Trachea midline. No JVD. CARDIOVASCULAR: Irregularly irregular, tachycardic RESPIRATORY: Decreased breath sounds bilaterally with rhonchi noted GASTROINTESTINAL: Abdomen soft, non-tender, nondistended. Hepatic and splenic margins not palpable. MUSCULOSKELETAL: Extremities without clubbing, cyanosis. 1+ pitting edema NEUROLOGICAL: Awake and alert. No obvious cranial nerve deficits. Motor grossly within normal limits. Five out of 5 muscle strength in the arms and legs. Normal speech. PSYCHIATRIC: Appropriate mood and affect; insight and judgment normal. Laboratory Laboratory Tests Test 08/19/17 04:11 White Blood Count 10.7 TH/MM3 Red Blood Count 4.14 MIL/MM3 Hemoglobin 12.7 GM/DL Hematocrit 38.1 % Mean Corpuscular Volume 92.1 FL Mean Corpuscular Hemoglobin 30.7 PG Mean Corpuscular Hemoglobin Concent 33.3 % Red Cell Distribution Width 16.5 % Platelet Count 148 TH/MM3 Mean Platelet Volume 8.6 FL Neutrophils (%) (Auto) 92.8 % Lymphocytes (%) (Auto) 3.6 % Monocytes (%) (Auto) 3.5 % Eosinophils (%) (Auto) 0.0 % Basophils (%) (Auto) 0.1 % Neutrophils # (Auto) 9.9 TH/MM3 Lymphocytes # (Auto) 0.4 TH/MM3 Monocytes # (Auto) 0.4 TH/MM3 Eosinophils # (Auto) 0.0 TH/MM3 Basophils # (Auto) 0.0 TH/MM3 CBC Comment DIFF FINAL Differential Comment Blood Urea Nitrogen 73 MG/DL Creatinine 2.41 MG/DL Random Glucose 158 MG/DL Total Protein 6.6 GM/DL Albumin 2.8 GM/DL Calcium Level 9.0 MG/DL Alkaline Phosphatase 100 U/L Aspartate Amino Transf (AST/SGOT) 21 U/L Alanine Aminotransferase (ALT/SGPT) 35 U/L Total Bilirubin 0.7 MG/DL Sodium Level 146 MEQ/L Potassium Level 4.2 MEQ/L Chloride Level 106 MEQ/L Carbon Dioxide Level 33.4 MEQ/L Anion Gap 7 MEQ/L Estimat Glomerular Filtration Rate 26 ML/MIN Assessment and Plan Problem List: (1) Atrial fibrillation with RVR ICD Codes: I48.91 - Unspecified atrial fibrillation (2) COPD with exacerbation ICD Codes: J44.1 - Chronic obstructive pulmonary disease with (acute) exacerbation (3) Acute exacerbation of CHF (congestive heart failure) ICD Codes: I50.9 - Heart failure, unspecified (4) Renal failure (ARF), acute on chronic ICD Codes: N17.9 - Acute kidney failure, unspecified; N18.9 - Chronic kidney disease, unspecified Status: Acute (5) Acute bronchitis ICD Codes: J20.9 - Acute bronchitis, unspecified Status: Acute Assessment and Plan 1. COPD exacerbation with acute bronchitis. Anti-biotics per primary team 2. Congestive heart failure which appears to be diastolic in nature, possibly due to atrial fibrillation with rapid ventricular response. Con't diuresis 3. Atrial fibrillation with rapid ventricular response on Eliquis. Con't Eliquis Added Cardizem, not controlled Will plan on adding Digoxin Will have to watch levels while on azithromycin and with CKD 4. Acute kidney injury on chronic kidney disease stage III. 5. History of coronary artery disease with a history of coronary artery bypass graft x5. Negative stress test in the office with infarction of the anterior wall, but no ischemia 6. Previous cardiomyopathy felt to be due to Afib with RVR Echo here showing normal function with resolution of cardiomyopathy Problem Qualifiers (1) Renal failure (ARF), acute on chronic: Qualified Codes: N17.9 - Acute kidney failure, unspecified; N18.9 - Chronic kidney disease, unspecified (2) Acute bronchitis: Qualified Codes: J20.9 - Acute bronchitis, unspecified Fly Núñez DO Aug 19, 2017 13:32
--- NOTE | 2017-08-19 14:38 | HHI.PR ---
Subjective Remarks Patient is still requiring oxygen and has a productive cough. Echocardiogram shows an ejection fraction of 55-60% decreasing the chance that this is predominantly CHF. No new complaints. Objective Vital Signs Date Time Temp Pulse Resp B/P (MAP) Pulse Ox O2 Delivery O2 Flow Rate FiO2 08/19/17 12: 97.6 130 20 108/74 (85) 95 08/19/17 09:28 96 21 08/19/17 08:14 97.7 130 20 130/70 (90) 92 08/19/17 07:00 146 08/19/17 03:54 98.8 114 18 148/81 (103) 94 08/18/17 23:54 98.8 117 18 133/79 (97) 96 08/18/17 20:16 96 Nasal Cannula 3.00 08/18/17 19:44 98.7 117 18 102/56 (71) 93 08/18/17 16:57 126 08/18/17 16:04 97.6 140 20 125/75 (92) 95 I/O 08/18/17 08/18/17 08/18/17 08/19/17 08/19/17 08/19/17 07:00 15:00 23:00 07:00 15:00 23:00 Intake Total 220 ml 250 ml 100 ml Output Total 1000 ml Balance -780 ml 250 ml 100 ml Intake Oral 220 ml 150 ml 100 ml IV Total 100 ml Output Urine Total 1000 ml Result Diagram: 08/19/1741008/19/17410 Objective Remarks GENERAL: NAD, A&Ox3 HEAD: Normocephalic. NECK: Supple, trachea midline. No lymphadenopathy. EYES: No scleral icterus. No injection or drainage. CARDIOVASCULAR: Regular rate and rhythm without murmurs, gallops, or rubs. RESPIRATORY: Breath sounds equal bilaterally. No accessory muscle use. Bilateral wheezing and bilateral basilar crackles. GASTROINTESTINAL: Abdomen soft, non-tender, nondistended. MUSCULOSKELETAL: No cyanosis, mild edema in lower extremities. SKIN: Warm and dry. NEURO: No focal neurological deficitis. A/P Problem List: (1) COPD with exacerbation ICD Code: J44.1 - Chronic obstructive pulmonary disease with (acute) exacerbation (2) Acute exacerbation of CHF (congestive heart failure) ICD Code: I50.9 - Heart failure, unspecified (3) Renal failure (ARF), acute on chronic ICD Code: N17.9 - Acute kidney failure, unspecified; N18.9 - Chronic kidney disease, unspecified Status: Acute (4) Acute bronchitis ICD Code: J20.9 - Acute bronchitis, unspecified Status: Acute Assessment and Plan Assessment and Plan 77-year-old male admitted secondary to CHF exacerbation and COPD exacerbation with bronchitis. Oxygen walk test ordered. Continue treatments for COPD exacerbation until patient's respiratory status improves. COPD exacerbation Bronchitis Hypoxia Continue steroids Continue IV Rocephin and azithromycin Continue schedule duo nebs Continue as needed duo nebs Continue oxygen supplementation Follow for improvement Oxygen walk test prior to discharge History of CABG CAD No systolic CHF on echocardiogram Discontinue diuresis Echocardiogram shows EF of 55-60% Follow edema Acute kidney injury, on chronic kidney disease stage III Slight improvement today Follow renal function Avoid nephrotoxins Discontinue IV fluids HTN Continue baseline treatments Follow blood pressure Gout No exacerbation No change to maintenance therapies Atrial fibrillation Follow on telemetry No change to chronic treatments DVT prophylaxis SCDs Problem Qualifiers (1) Renal failure (ARF), acute on chronic: Qualified Codes: N17.9 - Acute kidney failure, unspecified; N18.9 - Chronic kidney disease, unspecified (2) Acute bronchitis: Qualified Codes: J20.9 - Acute bronchitis, unspecified Raghav Yeager MD Aug 19, 2017 14:38
[2017-08-19] MEDS: cefTRIAXone INJ 1,000 MG in SODIUM CHLORIDE 0.9% INJ 100 ML IV SCH (17:18)
[2017-08-19] MEDS: DIGOXIN 0.5 MG/2 ML VIAL IVS SCH (20:32)
[2017-08-20] VITALS (14 sets, daily range): BP systolic 133–152; BP diastolic 63–92; PULSE 59–165; RESP 16–22; TEMP 96.4–97.6; O2SAT 92–98
[2017-08-20] MEDS: DILTIAZEM HCL 30 MG TAB PO SCH ×4 (00:31→17:07)
[2017-08-20] MEDS: DIGOXIN 0.5 MG/2 ML VIAL IVS SCH (00:33)
[2017-08-20] MEDS: RESP: ALBUTEROL 2.5 MG/IPRATROPIUM 0.5 MG NEB (SCH) NEB ×4 (03:44→21:17)
[2017-08-20 07:28] LABS: AUTOMATED NEUTROPHIL # 10.3 TH/MM3 (1.8-7.7); BASOPHIL % 0.2 % (0.0-2.0); HEMO FLAGS DIFF FINAL; LYMPH % 3.8 % (9.0-44.0); LYMPHOCYTE # 0.4 TH/MM3 (1.0-4.8); MEAN CELL VOLUME 91.6 FL (80.0-100.0); MEAN CORPUSCULAR HEMOGLOBIN 30.3 PG (27.0-34.0); MEAN CORPUSCULAR HGB CONC 33.1 % (32.0-36.0); PLATELET COUNT 171 TH/MM3 (150-450); RED BLOOD COUNT 4.26 MIL/MM3 (4.50-5.90); RED CELL DISTRIBUTION WIDTH 16.4 % (11.6-17.2); WHITE BLOOD COUNT 11.1 TH/MM3 (4.0-11.0)
[2017-08-20 07:54] LABS: ANION GAP 6 MEQ/L (5-15); AST (GOT) 22 U/L (15-37); BLOOD UREA NITROGEN 67 MG/DL (7-18); CHLORIDE 108 MEQ/L (98-107); GLOMERULAR FILTRATION RATE 34 ML/MIN (>89); POTASSIUM 4.1 MEQ/L (3.5-5.1); SODIUM (NA) 145 MEQ/L (136-145)
[2017-08-20 07:55] LABS: ALT (GPT) 40 U/L (12-78)
[2017-08-20 07:57] LABS: ALKALINE PHOSPHATASE 98 U/L (45-117); TOTAL BILIRUBIN ADULT 0.6 MG/DL (0.2-1.0)
[2017-08-20] MEDS ORDERED: DIGOXIN 0.125 MG TAB PO SCH (09:00)
[2017-08-20] MEDS: guaiFENesin E.R. 600 MG TAB PO SCH ×2 (09:21→20:58)
[2017-08-20] MEDS: METOPROLOL SUCCINATE 25 MG EXTENDED RELEASE TAB PO SCH (09:21)
[2017-08-20] MEDS: ASPIRIN 81 MG CHEW TAB CHEW SCH (09:21)
[2017-08-20] MEDS: predniSONE 20 MG TAB PO SCH ×2 (09:21→20:59)
[2017-08-20] MEDS: ATORVASTATIN 40 MG TAB PO SCH (09:21)
[2017-08-20] MEDS: AZITHROMYCIN 250 MG TAB PO SCH (09:21)
[2017-08-20] MEDS: ISOSORBIDE MONONITRATE 60 MG TAB PO SCH (09:21)
[2017-08-20] MEDS: APIXABAN 5 MG TABLET PO SCH ×2 (09:21→20:59)
[2017-08-20] MEDS: CYANOCOBALAMIN 1,000 MCG TAB PO SCH (09:21)
[2017-08-20] MEDS: BUDESONIDE-FORMOTEROL 80/4.5 MCG INHALER INH SCH ×2 (09:22→21:02)
[2017-08-20] MEDS: SODIUM CHLORIDE 0.9% FLUSH 10 ML FLUSH IV FLUSH SCH ×2 (09:22→20:58)
[2017-08-20] MEDS: CHOLECALCIFEROL (VIT D3) 1000 UNIT TAB PO SCH (09:22)
[2017-08-20] MEDS: FUROSEMIDE 20 MG/2 ML VIAL IV PUSH SCH (09:22)
--- NOTE | 2017-08-20 12:29 | PD.CARD.PN ---
Subjective Subjective Remarks No events overnight No chest pain SOB better Telemetry with consistent Afib with RVR Objective Medications Current Medications Medications (Trade) Dose Ordered Sig/Melody Route Start Time Stop Time Status Last Admin (NS Flush) 2 ml UNSCH PRN IV FLUSH 08/17/17 16:15 (NS Flush) 2 ml BID IV FLUSH 08/17/17 21:00 08/20/17 09:22 (Zofran Inj) 4 mg Q6H PRN IVP 08/17/17 16:15 (Narcan Inj) 0.4 mg UNSCH PRN IV PUSH 08/17/17 16:15 (Milk Of Magnesia Liq) 30 ml Q12H PRN PO 08/17/17 16:15 (Senokot) 17.2 mg Q12H PRN PO 08/17/17 16:15 (Dulcolax Supp) 10 mg DAILY PRN RECTAL 08/17/17 16:15 (Lactulose Liq) 30 ml DAILY PRN PO 08/17/17 16:15 Ceftriaxone Sodium 1000 mg/ Sodium Chloride 100 ml @ 200 mls/hr Q24H IV 08/18/17 16:00 08/19/17 17:18 (Zithromax) 250 mg DAILY PO 08/18/17 09:00 08/20/17 09:21 (Duoneb Neb) 1 ampule Q6HR NEB NEB 08/17/17 22:00 08/20/17 11:36 (Deltasone) 20 mg BID PO 08/17/17 21:00 08/20/17 09:21 (Aspirin Chew) 81 mg DAILY CHEW 08/18/17 09:00 08/20/17 09:21 (Symbicort 80-4.5 Mcg Inh) 2 puff Q12HR INH 08/17/17 21:00 08/20/17 09:22 (Vitamin D3) 2,000 units DAILY PO 08/18/17 09:00 08/20/17 09:22 (Vitamin B12) 1,000 mcg DAILY PO 08/18/17 09:00 08/20/17 09:21 (Imdur) 60 mg DAILY PO 08/18/17 09:00 08/20/17 09:21 (Toprol Xl) 25 mg DAILY PO 08/18/17 09:00 08/20/17 09:21 (Lipitor) 40 mg DAILY PO 08/18/17 09:00 08/20/17 09:21 (Mucinex Er) 600 mg BID PO 08/18/17 21:00 08/20/17 09:21 (Cardizem) 30 mg Q6HR PO 08/18/17 18:00 08/20/17 04:47 (Lasix Inj) 20 mg DAILY IV PUSH 08/19/17 09:00 08/20/17 09:22 (Eliquis) 5 mg BID PO 08/18/17 21:00 08/20/17 09:21 (Lanoxin) 0.125 mg DAILY PO 08/20/17 09:00 08/20/17 09:21 Vital Signs / I&O Vital Signs Date Time Temp Pulse Resp B/P (MAP) Pulse Ox O2 Delivery O2 Flow Rate FiO2 08/20/17 09:30 97.0 97 16 143/75 (97) 95 08/20/17 04:00 97.6 96 22 137/92 (107) 92 08/20/17 04:00 111 08/20/17 03:44 98 Nasal Cannula 2.00 08/20/17 00:00 119 08/20/17 00:00 97.0 110 20 136/70 (92) 92 08/19/17 21:00 94 Nasal Cannula 2.00 08/19/17 20:00 114 08/19/17 20:00 Nasal Cannula 2.00 08/19/17 20:00 97.4 110 20 113/64 (80) 94 08/19/17 16:59 Nasal Cannula 2.00 08/19/17 16:00 128 08/19/17 15:50 97.6 128 20 90/61 (71) 94 I/O 08/19/17 08/19/17 08/19/17 08/20/17 08/20/17 08/20/17 07:00 15:00 23:00 07:00 15:00 23:00 Intake Total 100 ml 380 ml Output Total 600 ml Balance 100 ml -220 ml Intake Oral 100 ml 380 ml Output Urine Total 600 ml # Bowel Movements 0 Physical Exam GENERAL: NAD, AAOx3 SKIN: Warm and dry. HEAD: Atraumatic. Normocephalic. EYES: Pupils equal and round. No scleral icterus. No injection or drainage. ENT: No nasal bleeding or discharge. Mucous membranes pink and moist. NECK: Trachea midline. No JVD. CARDIOVASCULAR: Irregularly irregular, tachycardic RESPIRATORY: Decreased breath sounds bilaterally with rhonchi noted GASTROINTESTINAL: Abdomen soft, non-tender, nondistended. Hepatic and splenic margins not palpable. MUSCULOSKELETAL: Extremities without clubbing, cyanosis. 1+ pitting edema NEUROLOGICAL: Awake and alert. No obvious cranial nerve deficits. Motor grossly within normal limits. Five out of 5 muscle strength in the arms and legs. Normal speech. PSYCHIATRIC: Appropriate mood and affect; insight and judgment normal. Laboratory Laboratory Tests Test 08/20/17 07:10 White Blood Count 11.1 TH/MM3 Red Blood Count 4.26 MIL/MM3 Hemoglobin 12.9 GM/DL Hematocrit 39.0 % Mean Corpuscular Volume 91.6 FL Mean Corpuscular Hemoglobin 30.3 PG Mean Corpuscular Hemoglobin Concent 33.1 % Red Cell Distribution Width 16.4 % Platelet Count 171 TH/MM3 Mean Platelet Volume 8.5 FL Neutrophils (%) (Auto) 93.0 % Lymphocytes (%) (Auto) 3.8 % Monocytes (%) (Auto) 3.0 % Eosinophils (%) (Auto) 0.0 % Basophils (%) (Auto) 0.2 % Neutrophils # (Auto) 10.3 TH/MM3 Lymphocytes # (Auto) 0.4 TH/MM3 Monocytes # (Auto) 0.3 TH/MM3 Eosinophils # (Auto) 0.0 TH/MM3 Basophils # (Auto) 0.0 TH/MM3 CBC Comment DIFF FINAL Differential Comment Blood Urea Nitrogen 67 MG/DL Creatinine 1.95 MG/DL Random Glucose 135 MG/DL Total Protein 6.9 GM/DL Albumin 2.9 GM/DL Calcium Level 8.7 MG/DL Alkaline Phosphatase 98 U/L Aspartate Amino Transf (AST/SGOT) 22 U/L Alanine Aminotransferase (ALT/SGPT) 40 U/L Total Bilirubin 0.6 MG/DL Sodium Level 145 MEQ/L Potassium Level 4.1 MEQ/L Chloride Level 108 MEQ/L Carbon Dioxide Level 31.0 MEQ/L Anion Gap 6 MEQ/L Estimat Glomerular Filtration Rate 34 ML/MIN Assessment and Plan Problem List: (1) Atrial fibrillation with RVR ICD Codes: I48.91 - Unspecified atrial fibrillation (2) COPD with exacerbation ICD Codes: J44.1 - Chronic obstructive pulmonary disease with (acute) exacerbation (3) Acute exacerbation of CHF (congestive heart failure) ICD Codes: I50.9 - Heart failure, unspecified (4) Renal failure (ARF), acute on chronic ICD Codes: N17.9 - Acute kidney failure, unspecified; N18.9 - Chronic kidney disease, unspecified Status: Acute (5) Acute bronchitis ICD Codes: J20.9 - Acute bronchitis, unspecified Status: Acute Assessment and Plan 1. COPD exacerbation with acute bronchitis. Anti-biotics per primary team 2. Congestive heart failure which appears to be diastolic in nature, possibly due to atrial fibrillation with rapid ventricular response. Con't diuresis Heart rate control 3. Atrial fibrillation with rapid ventricular response on Eliquis. Con't Eliquis Added Cardizem, not controlled Digoxin added, which helped but still elevated... will have Dr. Horne, EP Cardio, evaluate for recommendations Will have to watch levels while on azithromycin and with CKD 4. Acute kidney injury on chronic kidney disease stage III. 5. History of coronary artery disease with a history of coronary artery bypass graft x5. Negative stress test in the office with infarction of the anterior wall, but no ischemia 6. Previous cardiomyopathy felt to be due to Afib with RVR Echo here showing normal function with resolution of cardiomyopathy Problem Qualifiers (1) Renal failure (ARF), acute on chronic: Qualified Codes: N17.9 - Acute kidney failure, unspecified; N18.9 - Chronic kidney disease, unspecified (2) Acute bronchitis: Qualified Codes: J20.9 - Acute bronchitis, unspecified Fly Núñez DO Aug 20, 2017 12:29
--- NOTE | 2017-08-20 13:47 | HHI.PR ---
Subjective Remarks Patient says she is feeling all right today. Denies any chest. Shortness of breath. Denies any nausea or vomiting. Objective Vital Signs Date Time Temp Pulse Resp B/P (MAP) Pulse Ox O2 Delivery O2 Flow Rate FiO2 08/20/17 09:30 97.0 97 16 143/75 (97) 95 08/20/17 09:20 95 Nasal Cannula 2.00 08/20/17 04:00 97.6 96 22 137/92 (107) 92 08/20/17 04:00 111 08/20/17 03:44 98 Nasal Cannula 2.00 08/20/17 00:00 119 08/20/17 00:00 97.0 110 20 136/70 (92) 92 08/19/17 21:00 94 Nasal Cannula 2.00 08/19/17 20:00 114 08/19/17 20:00 Nasal Cannula 2.00 08/19/17 20:00 97.4 110 20 113/64 (80) 94 08/19/17 16:59 Nasal Cannula 2.00 08/19/17 16:00 128 08/19/17 15:50 97.6 128 20 90/61 (71) 94 I/O 08/19/17 08/19/17 08/19/17 08/20/17 08/20/17 08/20/17 07:00 15:00 23:00 07:00 15:00 23:00 Intake Total 100 ml 380 ml Output Total 600 ml Balance 100 ml -220 ml Intake Oral 100 ml 380 ml Output Urine Total 600 ml # Bowel Movements 0 Result Diagram: 08/20/17 0710 08/20/17 0710 Objective Remarks GENERAL: Patient sitting up in chair. Appears comfortable. Alert and oriented 3. SKIN: Warm and dry. HEAD: Normocephalic. EYES: No scleral icterus. No injection or drainage. NECK: Supple, trachea midline. No JVD. CARDIOVASCULAR: Regular rate and rhythm without murmurs, gallops, or rubs. RESPIRATORY: Breath sounds equal bilaterally. No accessory muscle use. GASTROINTESTINAL: Abdomen soft, non-tender, nondistended. MUSCULOSKELETAL: No cyanosis, or edema. BACK: Nontender without obvious deformity. No CVA tenderness. A/P Assessment and Plan 77-year-old male admitted secondary to CHF exacerbation and COPD exacerbation with bronchitis. Oxygen walk test ordered. Continue treatments for COPD exacerbation until patient's respiratory status improves. //COPD exacerbation //Bronchitis //Hypoxia Continue steroids Continue IV Rocephin and azithromycin Continue schedule duo nebs Continue as needed duo nebs Continue oxygen supplementation Follow for improvement Oxygen walk test prior to discharge = no need for oxygen. = 08/20. Respiratory status improved. Patient feels comfortable going home. Awaiting cardiology clearance. //History of CABG //CAD No systolic CHF on echocardiogram Discontinue diuresis Echocardiogram shows EF of 55-60% Edema improving. Continue to monitor. She cardiology assistance. //Acute kidney injury, on chronic kidney disease stage III Slight improvement today Follow renal function Avoid nephrotoxins = Likely cardiorenal secondary to uncontrolled atrial fibrillation. Continues improving. Creatinine 1.9. Continue to monitor. //HTN Continue baseline treatments Follow blood pressure //Gout No exacerbation No change to maintenance therapies //Atrial fibrillation = 08/20. Discussed with cardiology. Heart rate was elevated yesterday in the 140s. Improved after digoxin loading, however still elevated today. Cardiology recommends consulted during electrophysiology. We'll continue to monitor for improvement. DVT prophylaxis SCDs Discharge Planning Heart rate still elevated on 08/20. Continue to monitor. We'll need cardiology clearance prior to discharge. Mango Marquez MD Aug 20, 2017 13:47
[2017-08-20] MEDS: cefTRIAXone INJ 1,000 MG in SODIUM CHLORIDE 0.9% INJ 100 ML IV SCH (16:32)
[2017-08-20] MEDS: METOPROLOL TARTRATE 50 MG TAB PO SCH (21:00)
--- NOTE | 2017-08-20 21:23 | MB ---
cc: ISAIAH NIX M.D. DATE OF CONSULTATION: 08/20/2017 REASON FOR CONSULTATION: Atrial fibrillation unable to control with medication. HISTORY OF PRESENT ILLNESS: Mr. Fraga is a 77-year-old gentleman with history of atrial fibrillation, congestive heart failure, high blood pressure, coronary artery disease, admitted due to congestive heart failure, biventricular response. Heart rate still very difficult to control. I was consulted for further evaluation and management. The chart was reviewed. The patient was evaluated. ALLERGIES: None reported. SOCIAL HISTORY: The gentleman denies smoking and drinking. FAMILY HISTORY Noncontributory to his current medical condition. MEDICATIONS: Currently the patient is on: 1. Allopurinol. 2. Eliquis 5 milligrams twice a day. 3. Aspirin 4. Atorvastatin 40 milligrams a day. 5. Zithromax IV 6. Digoxin. 7. Cardizem. 8. Imdur. 9. Metoprolol REVIEW OF SYSTEMS: Currently the patient refers no chest pain, some shortness of breat, palpitations. No vomiting. No fever. PHYSICAL EXAMINATION: Alert, fully oriented. VITAL SIGNS: Blood pressure is 147/78, pulse 96, respiratory rate 18. LUNGS: Ventilated. CARDIOVASCULAR: S1-S2. No gallop, irregular, tachycardiac. ABDOMEN: Soft, no masses, no bruits. EXTREMITIES: No edema. Electrocardiogram: The last one on the 18 of August, atrial fibrillation, with biventricular response. Poor R-wave progression, diffuse ST changes. LABORATORY DATA Hemoglobin 12.9, white blood cell 11.1, platelet 171, potassium 4.1, creatinine 1.95, troponin less than 0.02. ASSESSMENT AND RECOMMENDATIONS Mr. Fraga apparently has pneumonia and atrial fibrillation, biventricular response. He has heart failure symptoms, but last echo read by Dr. Barnhart indicated ejection fraction of around 55 to 60. At this point my recommendation is heart rate control. I am going to increase the Cardizem and metoprolol. If necessary I will add digoxin. He is already on anticoagulation. I am going to DC the aspirin. The goal is rate control, then schedule and latera ablation. If heart rate cannot be controlled, then I will do ablation during this hospitalization. The case extensively discussed with him. I will follow him during hospitalization. MD CAREY Temple /8:01 PM /9:05 PM
[2017-08-20] MEDS: DILTIAZEM HCL 60 MG TAB PO SCH (23:45)
[2017-08-21 00:16] VITALS: PULSE 109
[2017-08-21] MEDS: RESP: ALBUTEROL 2.5 MG/IPRATROPIUM 0.5 MG NEB (SCH) NEB ×2 (03:37→09:07)
[2017-08-21 04:00] VITALS: BP 139/82; PULSE 74; PULSE 87; RESP 18; TEMP 97.3; O2SAT 91
[2017-08-21] MEDS: DILTIAZEM HCL 60 MG TAB PO SCH ×2 (05:38→11:57)
[2017-08-21] MEDS: METOPROLOL TARTRATE 50 MG TAB PO SCH ×2 (05:38→14:56)
[2017-08-21 07:05] LABS: AUTOMATED NEUTROPHIL # 9.5 TH/MM3 (1.8-7.7); HEMO FLAGS DIFF FINAL; LYMPH % 4.2 % (9.0-44.0); LYMPHOCYTE # 0.4 TH/MM3 (1.0-4.8); MEAN CELL VOLUME 90.5 FL (80.0-100.0); MEAN CORPUSCULAR HEMOGLOBIN 30.2 PG (27.0-34.0); MEAN CORPUSCULAR HGB CONC 33.4 % (32.0-36.0); MONO % 3.7 % (0.0-8.0); NEUT % 92.1 % (16.0-70.0); PLATELET COUNT 145 TH/MM3 (150-450); RED BLOOD COUNT 4.31 MIL/MM3 (4.50-5.90); RED CELL DISTRIBUTION WIDTH 16.2 % (11.6-17.2); WHITE BLOOD COUNT 10.3 TH/MM3 (4.0-11.0)
[2017-08-21 07:23] LABS: BICARBONATE 32.7 MEQ/L (21.0-32.0); MAGNESIUM 1.9 MG/DL (1.5-2.5); POTASSIUM 4.6 MEQ/L (3.5-5.1)
[2017-08-21 07:37] LABS: DIGOXIN 1.3 NG/ML (0.8-2.0)
[2017-08-21 08:00] VITALS: BP 102/50; PULSE 81; RESP 18; TEMP 97.2; O2SAT 97
[2017-08-21] MEDS: FUROSEMIDE 20 MG/2 ML VIAL IV PUSH SCH (08:38)
[2017-08-21] MEDS: guaiFENesin E.R. 600 MG TAB PO SCH (08:38)
[2017-08-21] MEDS: CHOLECALCIFEROL (VIT D3) 1000 UNIT TAB PO SCH (08:38)
[2017-08-21] MEDS: APIXABAN 5 MG TABLET PO SCH (08:38)
[2017-08-21] MEDS: CYANOCOBALAMIN 1,000 MCG TAB PO SCH (08:38)
[2017-08-21] MEDS: ATORVASTATIN 40 MG TAB PO SCH (08:38)
[2017-08-21] MEDS: predniSONE 20 MG TAB PO SCH (08:38)
[2017-08-21] MEDS: ISOSORBIDE MONONITRATE 60 MG TAB PO SCH (08:38)
[2017-08-21] MEDS: AZITHROMYCIN 250 MG TAB PO SCH (08:38)
[2017-08-21] MEDS: BUDESONIDE-FORMOTEROL 80/4.5 MCG INHALER INH SCH (08:39)
[2017-08-21] MEDS: SODIUM CHLORIDE 0.9% FLUSH 10 ML FLUSH IV FLUSH SCH (08:39)
--- NOTE | 2017-08-21 11:27 | PD.CARD.PN ---
Subjective Subjective Remarks No events overnight No chest pain SOB better Telemetry with Afib with CVR starting last night into today Objective Medications Current Medications Medications (Trade) Dose Ordered Sig/Melody Route Start Time Stop Time Status Last Admin (NS Flush) 2 ml UNSCH PRN IV FLUSH 08/17/17 16:15 (NS Flush) 2 ml BID IV FLUSH 08/17/17 21:00 08/21/17 08:39 (Zofran Inj) 4 mg Q6H PRN IVP 08/17/17 16:15 (Narcan Inj) 0.4 mg UNSCH PRN IV PUSH 08/17/17 16:15 (Milk Of Magnesia Liq) 30 ml Q12H PRN PO 08/17/17 16:15 (Senokot) 17.2 mg Q12H PRN PO 08/17/17 16:15 (Dulcolax Supp) 10 mg DAILY PRN RECTAL 08/17/17 16:15 (Lactulose Liq) 30 ml DAILY PRN PO 08/17/17 16:15 Ceftriaxone Sodium 1000 mg/ Sodium Chloride 100 ml @ 200 mls/hr Q24H IV 08/18/17 16:00 08/20/17 16:32 (Zithromax) 250 mg DAILY PO 08/18/17 09:00 08/21/17 08:38 (Duoneb Neb) 1 ampule Q6HR NEB NEB 08/17/17 22:00 08/21/17 09:07 (Deltasone) 20 mg BID PO 08/17/17 21:00 08/21/17 08:38 (Symbicort 80-4.5 Mcg Inh) 2 puff Q12HR INH 08/17/17 21:00 08/21/17 08:39 (Vitamin D3) 2,000 units DAILY PO 08/18/17 09:00 08/21/17 08:38 (Vitamin B12) 1,000 mcg DAILY PO 08/18/17 09:00 08/21/17 08:38 (Imdur) 60 mg DAILY PO 08/18/17 09:00 08/21/17 08:38 (Lipitor) 40 mg DAILY PO 08/18/17 09:00 08/21/17 08:38 (Mucinex Er) 600 mg BID PO 08/18/17 21:00 08/21/17 08:38 (Lasix Inj) 20 mg DAILY IV PUSH 08/19/17 09:00 08/21/17 08:38 (Eliquis) 5 mg BID PO 08/18/17 21:00 08/21/17 08:38 (Cardizem) 60 mg Q6HR PO 08/21/17 00:00 08/21/17 05:38 (Lopressor) 50 mg Q8HR PO 08/20/17 22:00 08/21/17 05:38 Vital Signs / I&O Vital Signs Date Time Temp Pulse Resp B/P (MAP) Pulse Ox O2 Delivery O2 Flow Rate FiO2 08/21/17 08:00 97.2 81 18 102/50 (67) 97 08/21/17 04:00 97.3 87 18 139/82 (101) 91 08/21/17 04:00 74 08/21/17 00:16 109 08/20/17 23:54 97.4 59 18 139/71 (93) 08/20/17 21:18 94 21 08/20/17 20:07 89 08/20/17 20:00 Room Air 08/20/17 20:00 97.5 89 18 133/63 (86) 93 08/20/17 18:00 97.4 96 18 147/78 (101) 93 08/20/17 16:42 99 08/20/17 12:00 127 08/20/17 12:00 96.4 94 18 152/63 (92) 93 I/O 08/20/17 08/20/17 08/20/17 08/21/17 08/21/17 08/21/17 07:00 15:00 23:00 07:00 15:00 23:00 Intake Total 380 ml 720 ml 480 ml 600 ml Output Total 600 ml 700 ml Balance -220 ml 720 ml -220 ml 600 ml Intake Oral 380 ml 720 ml 480 ml 600 ml Output Urine Total 600 ml 700 ml # Voids 3 1 # Bowel Movements 0 1 1 1 Physical Exam GENERAL: NAD, AAOx3 SKIN: Warm and dry. HEAD: Atraumatic. Normocephalic. EYES: Pupils equal and round. No scleral icterus. No injection or drainage. ENT: No nasal bleeding or discharge. Mucous membranes pink and moist. NECK: Trachea midline. No JVD. CARDIOVASCULAR: Irregularly irregular RESPIRATORY: CTA B/L GASTROINTESTINAL: Abdomen soft, non-tender, nondistended. Hepatic and splenic margins not palpable. MUSCULOSKELETAL: Extremities without clubbing, cyanosis. 1+ pitting edema NEUROLOGICAL: Awake and alert. No obvious cranial nerve deficits. Motor grossly within normal limits. Five out of 5 muscle strength in the arms and legs. Normal speech. PSYCHIATRIC: Appropriate mood and affect; insight and judgment normal. Laboratory Laboratory Tests Test 08/21/17 05:22 08/21/17 06:27 Blood Urea Nitrogen 58 MG/DL Creatinine 1.67 MG/DL Random Glucose 113 MG/DL Albumin 3.0 GM/DL Calcium Level 8.7 MG/DL Phosphorus Level 2.7 MG/DL Magnesium Level 1.9 MG/DL Sodium Level 144 MEQ/L Potassium Level 4.6 MEQ/L Chloride Level 106 MEQ/L Carbon Dioxide Level 32.7 MEQ/L Anion Gap 5 MEQ/L Estimat Glomerular Filtration Rate 40 ML/MIN Digoxin Level 1.3 NG/ML White Blood Count 10.3 TH/MM3 Red Blood Count 4.31 MIL/MM3 Hemoglobin 13.0 GM/DL Hematocrit 39.0 % Mean Corpuscular Volume 90.5 FL Mean Corpuscular Hemoglobin 30.2 PG Mean Corpuscular Hemoglobin Concent 33.4 % Red Cell Distribution Width 16.2 % Platelet Count 145 TH/MM3 Mean Platelet Volume 8.3 FL Neutrophils (%) (Auto) 92.1 % Lymphocytes (%) (Auto) 4.2 % Monocytes (%) (Auto) 3.7 % Eosinophils (%) (Auto) 0.0 % Basophils (%) (Auto) 0.0 % Neutrophils # (Auto) 9.5 TH/MM3 Lymphocytes # (Auto) 0.4 TH/MM3 Monocytes # (Auto) 0.4 TH/MM3 Eosinophils # (Auto) 0.0 TH/MM3 Basophils # (Auto) 0.0 TH/MM3 CBC Comment DIFF FINAL Differential Comment Assessment and Plan Problem List: (1) Atrial fibrillation with RVR ICD Codes: I48.91 - Unspecified atrial fibrillation (2) COPD with exacerbation ICD Codes: J44.1 - Chronic obstructive pulmonary disease with (acute) exacerbation (3) Acute exacerbation of CHF (congestive heart failure) ICD Codes: I50.9 - Heart failure, unspecified (4) Renal failure (ARF), acute on chronic ICD Codes: N17.9 - Acute kidney failure, unspecified; N18.9 - Chronic kidney disease, unspecified Status: Acute (5) Acute bronchitis ICD Codes: J20.9 - Acute bronchitis, unspecified Status: Acute Assessment and Plan 1. COPD exacerbation with acute bronchitis. Anti-biotics per primary team 2. Congestive heart failure which appears to be diastolic in nature, possibly due to atrial fibrillation with rapid ventricular response. Con't diuresis Heart rate control 3. Atrial fibrillation with rapid ventricular response on Eliquis. Con't Eliquis Digoxin started BB/CCB increased by Dr. Horne Heart rates better controlled, most likely discharge today 4. Acute kidney injury on chronic kidney disease stage III. 5. History of coronary artery disease with a history of coronary artery bypass graft x5. Negative stress test in the office with infarction of the anterior wall, but no ischemia 6. Previous cardiomyopathy felt to be due to Afib with RVR Echo here showing normal function with resolution of cardiomyopathy Problem Qualifiers (1) Renal failure (ARF), acute on chronic: Qualified Codes: N17.9 - Acute kidney failure, unspecified; N18.9 - Chronic kidney disease, unspecified (2) Acute bronchitis: Qualified Codes: J20.9 - Acute bronchitis, unspecified Fly Núñez DO Aug 21, 2017 11:27
[2017-08-21 12:00] VITALS: BP 117/61; PULSE 88; RESP 20; TEMP 97.5; O2SAT 92
--- NOTE | 2017-08-21 12:15 | HHI.PR ---
Subjective Remarks Feeling better Objective Vital Signs Date Time Temp Pulse Resp B/P (MAP) Pulse Ox O2 Delivery O2 Flow Rate FiO2 08/21/17 08:00 97.2 81 18 102/50 (67) 97 08/21/17 04:00 97.3 87 18 139/82 (101) 91 08/21/17 04:00 74 08/21/17 00:16 109 08/20/17 23:54 97.4 59 18 139/71 (93) 08/20/17 21:18 94 21 08/20/17 20:07 89 08/20/17 20:00 Room Air 08/20/17 20:00 97.5 89 18 133/63 (86) 93 08/20/17 18:00 97.4 96 18 147/78 (101) 93 08/20/17 16:42 99 I/O 08/20/17 08/20/17 08/20/17 08/21/17 08/21/17 08/21/17 07:00 15:00 23:00 07:00 15:00 23:00 Intake Total 380 ml 720 ml 480 ml 600 ml Output Total 600 ml 700 ml Balance -220 ml 720 ml -220 ml 600 ml Intake Oral 380 ml 720 ml 480 ml 600 ml Output Urine Total 600 ml 700 ml # Voids 3 1 # Bowel Movements 0 1 1 1 Result Diagram: 08/21/17 0627 08/21/17 0522 Imaging Alert, fully oriented Lungs: ventilated Heart: s1, S2 irregular, no gallop Abdomen: soft, no mass Ext: no edema Last Impressions Chest X-Ray 08/17/17 1347 Signed Impressions: Service Date/Time: Thursday, August 17, 2017 14:19 - CONCLUSION: 1. Compensated cardiomegaly. 2. Postsurgical changes characteristic of prior CABG. 3. No acute infiltrate. Piter Aponte MD Current Medications Medications (Trade) Dose Ordered Sig/Melody Route Start Time Stop Time Status Last Admin (NS Flush) 2 ml UNSCH PRN IV FLUSH 08/17/17 16:15 (NS Flush) 2 ml BID IV FLUSH 08/17/17 21:00 08/21/17 08:39 (Zofran Inj) 4 mg Q6H PRN IVP 08/17/17 16:15 (Narcan Inj) 0.4 mg UNSCH PRN IV PUSH 08/17/17 16:15 (Milk Of Magnesia Liq) 30 ml Q12H PRN PO 08/17/17 16:15 (Senokot) 17.2 mg Q12H PRN PO 08/17/17 16:15 (Dulcolax Supp) 10 mg DAILY PRN RECTAL 08/17/17 16:15 (Lactulose Liq) 30 ml DAILY PRN PO 08/17/17 16:15 Ceftriaxone Sodium 1000 mg/ Sodium Chloride 100 ml @ 200 mls/hr Q24H IV 08/18/17 16:00 08/20/17 16:32 (Zithromax) 250 mg DAILY PO 08/18/17 09:00 08/21/17 08:38 (Duoneb Neb) 1 ampule Q6HR NEB NEB 08/17/17 22:00 08/21/17 09:07 (Deltasone) 20 mg BID PO 08/17/17 21:00 08/21/17 08:38 (Symbicort 80-4.5 Mcg Inh) 2 puff Q12HR INH 08/17/17 21:00 08/21/17 08:39 (Vitamin D3) 2,000 units DAILY PO 08/18/17 09:00 08/21/17 08:38 (Vitamin B12) 1,000 mcg DAILY PO 08/18/17 09:00 08/21/17 08:38 (Imdur) 60 mg DAILY PO 08/18/17 09:00 08/21/17 08:38 (Lipitor) 40 mg DAILY PO 08/18/17 09:00 08/21/17 08:38 (Mucinex Er) 600 mg BID PO 08/18/17 21:00 08/21/17 08:38 (Lasix Inj) 20 mg DAILY IV PUSH 08/19/17 09:00 08/21/17 08:38 (Eliquis) 5 mg BID PO 08/18/17 21:00 08/21/17 08:38 (Cardizem) 60 mg Q6HR PO 08/21/17 00:00 08/21/17 11:57 (Lopressor) 50 mg Q8HR PO 08/20/17 22:00 08/21/17 05:38 Assessment and Plan Problem List: (1) Atrial fibrillation with RVR ICD Codes: I48.91 - Unspecified atrial fibrillation Plan: In atrial fibrillation HR control Doing better can be DH ablation as OP Follow up at my office in 2 weeks (2) Acute exacerbation of CHF (congestive heart failure) ICD Codes: I50.9 - Heart failure, unspecified Plan: Normal EF Rayna Horne MD Aug 21, 2017 12:15
[2017-08-21] MEDS ORDERED: DILT120C9 PO (13:41)
[2017-08-21] MEDS ORDERED: PRED10 PO (13:41)
[2017-08-21] MEDS ORDERED: AZIT250T3 PO (13:41)
[2017-08-21] MEDS ORDERED: METO-309 PO (13:41)
--- NOTE | 2017-08-21 13:44 | HHI.FF ---
Face to Face Verification Diagnosis: (1) COPD with exacerbation (2) Atrial fibrillation with RVR (3) Renal failure (ARF), acute on chronic Physical Therapy Order: Evaluate and Treat Home Health Nursing Order: CHF education Nursing assessment with vital signs Instructions: nurse for medication management I have seen patient Samson Fraga on 08/21/17. My clinical findings support the need for the requested home health care services because: Limited ability to care for self I certify that my clinical findings support that this patient is homebound because: Unsafe to leave home unassisted Mango Marquez MD Aug 21, 2017 13:44
--- NOTE | 2017-08-21 13:47 | HHI.PR ---
Subjective Remarks says he is feeling alright. says he feels like he can go home. i dw Dr Horne, who has cleared for dc Objective Vital Signs Date Time Temp Pulse Resp B/P (MAP) Pulse Ox O2 Delivery O2 Flow Rate FiO2 08/21/17 12:00 97.5 88 20 117/61 (79) 92 08/21/17 08:00 97.2 81 18 102/50 (67) 97 08/21/17 04:00 97.3 87 18 139/82 (101) 91 08/21/17 04:00 74 08/21/17 00:16 109 08/20/17 23:54 97.4 59 18 139/71 (93) 08/20/17 21:18 94 21 08/20/17 20:07 89 08/20/17 20:00 Room Air 08/20/17 20:00 97.5 89 18 133/63 (86) 93 08/20/17 18:00 97.4 96 18 147/78 (101) 93 08/20/17 16:42 99 I/O 08/20/17 08/20/17 08/20/17 08/21/17 08/21/17 08/21/17 07:00 15:00 23:00 07:00 15:00 23:00 Intake Total 380 ml 720 ml 480 ml 600 ml Output Total 600 ml 700 ml Balance -220 ml 720 ml -220 ml 600 ml Intake Oral 380 ml 720 ml 480 ml 600 ml Output Urine Total 600 ml 700 ml # Voids 3 1 # Bowel Movements 0 1 1 1 Result Diagram: 08/21/17 0627 08/21/17 0522 Objective Remarks GENERAL: Patient sitting up in chair. Appears comfortable. Alert and oriented 3. SKIN: Warm and dry. HEAD: Normocephalic. EYES: No scleral icterus. No injection or drainage. NECK: Supple, trachea midline. No JVD. CARDIOVASCULAR: Regular rate and rhythm without murmurs, gallops, or rubs. RESPIRATORY: Breath sounds equal bilaterally. No accessory muscle use. GASTROINTESTINAL: Abdomen soft, non-tender, nondistended. MUSCULOSKELETAL: No cyanosis. trace peripheral edema BACK: Nontender without obvious deformity. No CVA tenderness. A/P Assessment and Plan 77-year-old male admitted secondary to CHF exacerbation and COPD exacerbation with bronchitis. Oxygen walk test ordered. Continue treatments for COPD exacerbation until patient's respiratory status improves. //COPD exacerbation //Bronchitis //Hypoxia Continue steroids Continue IV Rocephin and azithromycin Continue schedule duo nebs Continue as needed duo nebs Continue oxygen supplementation Follow for improvement Oxygen walk test prior to discharge = no need for oxygen. = 08/20. Respiratory status improved. Patient feels comfortable going home. Awaiting cardiology clearance. =dc on pred taper, zithromax. fu pcp //History of CABG //CAD No systolic CHF on echocardiogram Discontinue diuresis Echocardiogram shows EF of 55-60% Edema improving. Continue to monitor. She cardiology assistance. //Acute kidney injury, on chronic kidney disease stage III Slight improvement today Follow renal function Avoid nephrotoxins = Likely cardiorenal secondary to uncontrolled atrial fibrillation. Continues improving. Creatinine 1.7. Continue to monitor. //HTN Continue baseline treatments Follow blood pressure //Gout No exacerbation No change to maintenance therapies //Atrial fibrillation = 08/20. Discussed with cardiology. Heart rate was elevated yesterday in the 140s. Improved after digoxin loading, however still elevated today. Cardiology recommends consulted during electrophysiology. We'll continue to monitor for improvement. =08/21, cleared by cardiology. dc . f/u cardiology DVT prophylaxis SCDs Discharge Planning Heart rate still elevated on 08/20. Continue to monitor. We'll need cardiology clearance prior to discharge. Mango Marquez MD Aug 21, 2017 13:47
[2017-08-21] MEDS ORDERED: Albuterol-Ipratropium Neb NEB (13:48)
[2017-08-21] MEDS ORDERED: NEBUKIT5 (13:49)
--- NOTE | 2017-08-21 21:06 | HHI.DS ---
Discharge Summary Admission Date Aug 18, 2017 at 12:47 Discharge Date: Aug 21, 2017 Admitting Diagnosis COPD exacerbation (1) Renal failure (ARF), acute on chronic ICD Code: N17.9 - Acute kidney failure, unspecified; N18.9 - Chronic kidney disease, unspecified Status: Acute Brief History - From Admission Written by Josesito Luna, acting as scribe for Dr. Marquez on 08/17/17 at 17: 10. Patient is a 77-year-old male with primary medical history of HTN, CAD, gout, HLD, CKD 3, atrial fibrillation who came into the hospital with increasing shortness of breath, cough for 4-5 days, expectoration of green phlegm. Patient states for the past 4-5 days he is coughing and getting short of breath. As per significant other who was at the bedside, patient has orthopnea and able to "lay down in bed for the past 4-5 days, febrile 100. something." Patient also complains of abdominal pain secondary to increased coughing. Reports bilateral lower extremity edema that has been ongoing problem but if he elevates his legs it decreases in size. Patient is being followed by Dr. Monk in outpatient, denies he has any history of congestive heart failure but he is being worked up right now at Dr. Monk's office work and he is due for a Holter monitor. Patient and significant other states that they were just at the office of Dr. Monk prior to do stress test. They're unaware of any echocardiogram however did not know if it is being done. Patient is also due for a renal ultrasound study this week and also a liver ultrasound. Denies pain and discomfort. Denies chest pain, palpitations, headaches, dizziness. Denies n/v/d. Denies dysuria. CBC/BMP: 08/21/17 0627 08/21/17 0522 Significant Findings Laboratory Tests Test 08/19/17 04:11 08/20/17 07:10 08/21/17 05:22 08/21/17 06:27 Red Blood Count 4.14 MIL/MM3 (4.50-5.90) 4.26 MIL/MM3 (4.50-5.90) 4.31 MIL/MM3 (4.50-5.90) Hemoglobin 12.7 GM/DL (13.0-17.0) 12.9 GM/DL (13.0-17.0) Hematocrit 38.1 % (39.0-51.0) Platelet Count 148 TH/MM3 (150-450) 145 TH/MM3 (150-450) Neutrophils (%) (Auto) 92.8 % (16.0-70.0) 93.0 % (16.0-70.0) 92.1 % (16.0-70.0) Lymphocytes (%) (Auto) 3.6 % (9.0-44.0) 3.8 % (9.0-44.0) 4.2 % (9.0-44.0) Neutrophils # (Auto) 9.9 TH/MM3 (1.8-7.7) 10.3 TH/MM3 (1.8-7.7) 9.5 TH/MM3 (1.8-7.7) Lymphocytes # (Auto) 0.4 TH/MM3 (1.0-4.8) 0.4 TH/MM3 (1.0-4.8) 0.4 TH/MM3 (1.0-4.8) Blood Urea Nitrogen 73 MG/DL (7-18) 67 MG/DL (7-18) 58 MG/DL (7-18) Creatinine 2.41 MG/DL (0.60-1.30) 1.95 MG/DL (0.60-1.30) 1.67 MG/DL (0.60-1.30) Random Glucose 158 MG/DL (74-106) 135 MG/DL (74-106) 113 MG/DL (74-106) Albumin 2.8 GM/DL (3.4-5.0) 2.9 GM/DL (3.4-5.0) 3.0 GM/DL (3.4-5.0) Sodium Level 146 MEQ/L (136-145) Carbon Dioxide Level 33.4 MEQ/L (21.0-32.0) 32.7 MEQ/L (21.0-32.0) Estimat Glomerular Filtration Rate 26 ML/MIN (>89) 34 ML/MIN (>89) 40 ML/MIN (>89) White Blood Count 11.1 TH/MM3 (4.0-11.0) Chloride Level 108 MEQ/L (98-107) Imaging Last Impressions Chest X-Ray 08/17/17 1347 Signed Impressions: Service Date/Time: Thursday, August 17, 2017 14:19 - CONCLUSION: 1. Compensated cardiomegaly. 2. Postsurgical changes characteristic of prior CABG. 3. No acute infiltrate. Piter Aponte MD Hospital Course 77-year-old male admitted secondary to CHF exacerbation and COPD exacerbation with bronchitis. Oxygen walk test ordered. Continue treatments for COPD exacerbation until patient's respiratory status improves. //COPD exacerbation //Bronchitis //Hypoxia Continue steroids Continue IV Rocephin and azithromycin Continue schedule duo nebs Continue as needed duo nebs Continue oxygen supplementation Follow for improvement Oxygen walk test prior to discharge = no need for oxygen. = 08/20. Respiratory status improved. Patient feels comfortable going home. Awaiting cardiology clearance. =dc on pred taper, zithromax. fu pcp //History of CABG //CAD No systolic CHF on echocardiogram Discontinue diuresis Echocardiogram shows EF of 55-60% Edema improving. Continue to monitor. She cardiology assistance. //Acute kidney injury, on chronic kidney disease stage III Slight improvement today Follow renal function Avoid nephrotoxins = Likely cardiorenal secondary to uncontrolled atrial fibrillation. Continues improving. Creatinine 1.7. Continue to monitor. //HTN Continue baseline treatments Follow blood pressure //Gout No exacerbation No change to maintenance therapies //Atrial fibrillation = 08/20. Discussed with cardiology. Heart rate was elevated yesterday in the 140s. Improved after digoxin loading, however still elevated today. Cardiology recommends consulted during electrophysiology. We'll continue to monitor for improvement. =08/21, cleared by cardiology. dc . f/u cardiology DVT prophylaxis SCDs Discharge Planning Heart rate still elevated on 08/20. Continue to monitor. We'll need cardiology clearance prior to discharge. Pt Condition on Discharge: Good Discharge Disposition: Disch w/ Home Health Serv Discharge Instructions DIET: Follow Instructions for: Heart Healthy Diet Activities you can perform: Regular-No Restrictions Follow up Referrals: Cardiology - 1 Week with Rayna Horne MD Cardiology @ [facility] Follow-up - 1 Week with [facility] MD PCP [facility] with [facility] New Medications: Diltiazem ER 12 HR (Diltiazem ER 12 HR) 120 Mg Caper 120 MG PO BID, #60 CAP 0 Refills Nebulizer Kit/Tubing/Mout (Nebulizer Kit/Tubing/Mout) 1 Kit Kit KIT .ROUTE DIRECTED for Breathing Treatment, #1 0 Refills Prednisone (Prednisone) 10 Mg Tab 10 MG PO DAILY for copd, #9 TAB 0 Refills take 20mg daily for 3 days; 10mg daily for 3 days, then stop. Azithromycin (Azithromycin) 250 Mg Tab 250 MG PO DAILY for copd, #2 TAB Metoprolol Tartrate (Lopressor) 50 Mg Tab 50 MG PO Q8HR for heart for 30 Days, TAB [Albuterol-Ipratropium Neb] () 1 AMPULE NEBU 1 AMPULE NEB Q6HR NEB PRN for SOB/WHEEZING for 30 Days Continued Medications: Allopurinol (Allopurinol) 100 Mg Tab 100 MG PO DAILY for Gout, #30 TAB 0 Refills Apixaban (Eliquis) 5 Mg Tab 5 MG PO BID for Blood Clot Prevention, #60 TAB 0 Refills Aspirin (Aspirin) 81 Mg Chew 81 MG CHEW DAILY, TAB 0 Refills Budesonide-Formoterol Inh (Symbicort Inh) 80-4.5 Mcg/Act Aero 2 PUFF INH Q12HR for Asthma Management, #1 INHALER 0 Refills Cholecalciferol (Vitamin D-1000) 1,000 Unit Tab 2000 UNITS PO DAILY for Nutritional Supplement, #1 BOTTLE 0 Refills Cyanocobalamin (Vitamin B-12) 1,000 Mcg Tab 1000 MCG PO DAILY for Nutritional Supplement, #1 BOTTLE 0 Refills Furosemide (Furosemide) 40 Mg Tab 40 MG PO DAILY, #30 TAB 0 Refills Isosorbide Mononitrate (Isosorbide Mononitrate) 20 Mg Tab 60 MG PO DAILY for Prevent Chest Pain, #60 TAB 0 Refills Take 2 doses 7 hours apart. Lisinopril (Lisinopril) 10 Mg Tab 25 MG PO DAILY, #30 TAB 0 Refills Rosuvastatin (Crestor) 20 Mg Tab 20 MG PO DAILY for Cholesterol Management, #30 TAB 0 Refills Discontinued Medications: Metoprolol Succinate ER 24 HR (Metoprolol Succinate ER 24 HR) 25 Mg Tab 25 MG PO DAILY, #30 TAB 0 Refills Mango Marquez MD Aug 21, 2017 21:06
== END 2017-08-21 15:21 | disposition home health service (06) | DRG 291 ==
LOC: NEPD 13:24 → NEDA 16:05 → NEPGCP 17:02 → OBSVTOIN 08-18 12:47 → N04A 08-19 15:45
PROVIDERS: ADMIT Internal Medicine; ATTEND Internal Medicine
DX: I13.0 Hypertensive heart and chronic kidney disease with heart failure and stage 1 through stage 4 chronic kidney disease, or unspecified chronic kidney disease (principal); I50.23 Acute on chronic systolic (congestive) heart failure; N17.9 Acute kidney failure, unspecified; J20.9 Acute bronchitis, unspecified; J44.0 Chronic obstructive pulmonary disease with (acute) lower respiratory infection; I48.91 Unspecified atrial fibrillation; J44.1 Chronic obstructive pulmonary disease with (acute) exacerbation; N18.3 Chronic kidney disease, stage 3 (moderate); F17.210 Nicotine dependence, cigarettes, uncomplicated; G47.30 Sleep apnea, unspecified; I25.10 Atherosclerotic heart disease of native coronary artery without angina pectoris; E78.5 Hyperlipidemia, unspecified; M10.9 Gout, unspecified; R09.02 Hypoxemia; Z95.1 Presence of aortocoronary bypass graft; I25.2 Old myocardial infarction
CPT/HCPCS: 71010; 80048; 80053; 80069; 80162; 81001; 82550; 83735; 83880; 84484; 85025; 87040; 87070; 87205; 87804; 93005; 93306; 94620; 94640; 94664; 96365; 96366; 96372; 96375; 96376; G0378; J0456; J0696; J1160; J1644; J1940; J2930; J7050; J7512

== ENCOUNTER 2017-11-05 16:48 | Inpatient (IN) | payer OTHER, MEDICARE ==
[2017-11-05] VITALS (8 sets, daily range): BP systolic 97–150; BP diastolic 55–84; PULSE 60–127; RESP 18–20; TEMP 97.9–98.2; O2SAT 96–98
[~2017-11-05 16:48] MED LIST changes: +ALLO100T PO; +APIX5TAB PO; +ASPI-516 CHEW; -ASPI325T PO; +AZIT250T3 PO; +Albuterol-Ipratropium Neb NEB; +DILT120C9 PO; +FURO40TA PO; +ISOS20TA PO; -ISOS30; +LISI10TA3 PO; -LISI2.5T55 PO; +METO-309 PO; -METO50CR OR; +NEBUKIT5; +PRED10 PO; +ROSU20 PO; -SIMV80TA OR; +VITA1000 PO; +VITA10002 PO
--- NOTE | 2017-11-05 17:30 | RADRPT ---
EXAM DATE/TIME: 11/05/2017 17:08 [place] COMPARISON: CHEST SINGLE AP, August 17, 2017, 14:19. INDICATIONS : Chest pain, pressure MEDICAL HISTORY : Hypertension. Chronic obstructive pulmonary disease. Cardiovascular disease. SURGICAL HISTORY : CABG. ENCOUNTER: Initial ACUITY: 1 day PAIN SCORE: 0/10 LOCATION: Bilateral chest FINDINGS: Result calcified granuloma in the lateral right midlung and normal probable parenchymal scarring in t he left lateral midlung. There is mild vascular congestion and interstitial prominence. Small bilater al effusions. Heart size is upper limits of normal and is grossly stable. Mediastinal contours are st able. There has been previous sternotomy. CONCLUSION: Mild parenchymal edema and small effusions. Arnel Subramanian MD on November 05, 2017 at 17:26 Board Certified Radiologist. This report was verified electronically.
[2017-11-05 17:42] LABS: AUTOMATED NEUTROPHIL # 5.9 TH/MM3 (1.8-7.7); BASOPHIL # 0.1 TH/MM3 (0-0.2); EOSINOPHIL # 0.3 TH/MM3 (0-0.4); EOSINOPHIL % 3.9 % (0.0-4.0); HEMATOCRIT 34.9 % (39.0-51.0); HEMOGLOBIN 11.8 GM/DL (13.0-17.0); LYMPH % 11.3 % (9.0-44.0); LYMPHOCYTE # 0.9 TH/MM3 (1.0-4.8); MEAN CELL VOLUME 91.5 FL (80.0-100.0); MEAN CORPUSCULAR HEMOGLOBIN 30.9 PG (27.0-34.0); MEAN CORPUSCULAR HGB CONC 33.7 % (32.0-36.0); MEAN PLATELET VOLUME 7.6 FL (7.0-11.0); MONOCYTE # 0.6 TH/MM3 (0-0.9); NEUT % 75.8 % (16.0-70.0); PLATELET COUNT 213 TH/MM3 (150-450); RED BLOOD COUNT 3.81 MIL/MM3 (4.50-5.90); WHITE BLOOD COUNT 7.8 TH/MM3 (4.0-11.0)
[2017-11-05 17:51] LABS: INTERNATIONAL NORMALIZED RATIO 1.2 RATIO; PROTHROMBIN TIME - PATIENT 12.6 SEC (9.8-11.6)
[2017-11-05 17:53] LABS: BICARBONATE 30.7 MEQ/L (21.0-32.0); BLOOD UREA NITROGEN 20 MG/DL (7-18); CALCIUM 8.8 MG/DL (8.5-10.1); CHLORIDE 110 MEQ/L (98-107); CREATININE 1.32 MG/DL (0.60-1.30); GLOMERULAR FILTRATION RATE 53 ML/MIN (>89); GLUCOSE,RANDOM 89 MG/DL (74-106); MAGNESIUM 2.3 MG/DL (1.5-2.5); SODIUM (NA) 145 MEQ/L (136-145)
[2017-11-05 17:57] LABS: TROPONIN I LESS THAN 0.02 NG/ML (0.02-0.05)
--- NOTE | 2017-11-05 17:57 | PD ---
HPI Chief Complaint: Respiratory Symptoms Time Seen by Provider: 17:43 Travel History International Travel<30 days: No Contact w/Intl Traveler<30days: No Traveled to known affect area: No History of Present Illness HPI 77-year-old male came to the emergency room with history of progressive shortness of breath since this morning. Patient has history of atrial fibrillation and his heart rate is in 120s. Monitor shows A. fib. Patient also complains of tightness all around his chest. Shortness of breath and chest tightness worsens upon exertion. 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 He appears to be in moderate respiratory distress during rest. No history of cough, fever or chills. His is here with him. Patient also said that for past 2 days he has been noticing dark color stool. Patient is on Eliquis for her A. fib. [facility] Past Medical History Narrative Medical List of her past medical, surgical, social and family history is reviewed from the nursing note. Hx Anticoagulant Therapy: Yes Asthma: No Atrial Fibrillation: Yes Autoimmune Disease: No Blood Disorders: No Anxiety: No Depression: No Heart Rhythm Problems: Yes (AFIB RVR) Cancer: No Cardiac Catheterization: Yes Cardiovascular Problems: Yes (CABG) High Cholesterol: Yes Chemotherapy: No Chest Pain: Yes Congestive Heart Failure: Yes COPD: Yes Coronary Artery Disease: Yes Diabetes: No Endocrine: No Genitourinary: Yes Hypertension: Yes Immune Disorder: No Kidney Stones: No Musculoskeletal: No Neurologic: No Psychiatric: No Reproductive: No Respiratory: Yes (COPD) Myocardial Infarction: Yes Radiation Therapy: No Renal Failure: No Sleep Apnea: Yes Thyroid Disease: No PNEUMOCCOCAL Vaccine (Year): 1 Past Surgical History Abdominal Surgery: No Cardiac Surgery: Yes (CABG) Coronary Artery Bypass Graft: Yes (2002) Ear Surgery: No Endocrine Surgery: No Eye Surgery: No Genitourinary Surgery: No Gynecologic Surgery: No Oral Surgery: No Thoracic Surgery: No Other Surgery: Yes (TUMOR LT SIDE OF NECK) Social History Alcohol Use: Yes (SOCIAL) Tobacco Use: No Substance Use: No Allergies-Medications (Allergen,Severity, Reaction): Coded Allergies: No Known Allergies (Verified , 06/25/10) Comments No known drug allergies Reported Meds & Prescriptions Reported Meds & Active Scripts Active [Albuterol-Ipratropium Neb] 1 AMPULE Nebu 1 Ampule NEB Q6HR NEB PRN 30 Days Reported Ferrous Sulfate 325 Mg (65 Mg Iron) Tablet 325 Mg PO DAILY Diltiazem CD 24 HR 360 Mg Capcr 360 Mg PO DAILY Eliquis (Apixaban) 5 Mg Tab 5 Mg PO BID Vitamin B-12 (Cyanocobalamin) 1,000 Mcg Tab 1,000 Mcg PO DAILY Furosemide 40 Mg Tab 40 Mg PO DAILY Vitamin D-1000 (Cholecalciferol) 1,000 Unit Tab 2,000 Units PO DAILY Lisinopril 10 Mg Tab 25 Mg PO DAILY Crestor (Rosuvastatin Calcium) 20 Mg Tab 20 Mg PO DAILY Isosorbide Mononitrate 20 Mg Tab 60 Mg PO DAILY Take 2 doses 7 hours apart. Symbicort Inh (Budesonide/Formoterol Fumarate) 80-4.5 Mcg/Act Aero 2 Puff INH Q12HR Aspirin 81 Mg Chew 81 Mg CHEW DAILY Narrative Medication List of his home medications reviewed from the nursing note. Review of Systems Except as stated in HPI: all other systems reviewed are Neg Cardiovascular: Positive: Chest Pain or Discomfort Respiratory: Positive: Shortness of Breath Physical Exam Narrative GENERAL: Awake, alert, moderate distress SKIN: Focused skin assessment warm/dry. HEAD: Atraumatic. Normocephalic. EYES: Pupils equal and round. No scleral icterus. No injection or drainage. ENT: No nasal bleeding or discharge. Mucous membranes pink and moist. NECK: Trachea midline. No JVD. CARDIOVASCULAR: Regular rate and rhythm. No murmur appreciated. RESPIRATORY: Respiratory distress at rest with accessory muscles used. Bibasilar crackles GASTROINTESTINAL: Abdomen soft, non-tender, nondistended. Hepatic and splenic margins not palpable. MUSCULOSKELETAL: No obvious deformities. No clubbing. No cyanosis. Pedal edema. NEUROLOGICAL: Awake and alert. No obvious cranial nerve deficits. Motor grossly within normal limits. Normal speech. PSYCHIATRIC: Appropriate mood and affect; insight and judgment normal. Data Data Last Documented VS Vital Signs Date Time Temp Pulse Resp B/P (MAP) Pulse Ox O2 Delivery O2 Flow Rate FiO2 11/05/17 18:21 107 18 150/84 (106) 97 Nasal Cannula 2.00 11/05/17 16:53 98.2 Orders Orders Electrocardiogram (11/05/17 16:55) Basic Metabolic Panel (Bmp) (11/05/17 16:55) B-Type Natriuretic Peptide (11/05/17 16:55) Ckmb (Isoenzyme) Profile (11/05/17 16:55) Complete Blood Count With Diff (11/05/17 16:55) Magnesium (Mg) (11/05/17 16:55) Prothrombin Time / Inr (Pt) (11/05/17 16:55) Act Partial Throm Time (Ptt) (11/05/17 16:55) Troponin I (11/05/17 16:55) Chest, Pa & Lat (11/05/17 16:55) Furosemide Inj (Lasix Inj) (11/05/17 18:15) Vital Signs (Adult) Q15MX4,Q4H (11/05/17 18:12) Sharepoint Developer / Telemetry ULICES.Q8H (11/05/17 18:12) Cardiac Rhythm ULICES.Q8H (11/05/17 18:12) Notify Dr: Other (11/05/17 18:12) Diltiazem Inj (Cardizem Inj) (11/05/17 18:15) Diltiazem Inj (Cardizem Inj) (11/05/17 18:15) Sodium Chloride 0.9... W/Pantoprazole In (11/05/17 19:21) Sodium Chloride 0.9... W/Pantoprazole In (11/05/17 19:21) Admit Order (Ed Use Only) (11/05/17 18:21) Labs Laboratory Tests Test 11/05/17 17:19 White Blood Count 7.8 TH/MM3 Red Blood Count 3.81 MIL/MM3 Hemoglobin 11.8 GM/DL Hematocrit 34.9 % Mean Corpuscular Volume 91.5 FL Mean Corpuscular Hemoglobin 30.9 PG Mean Corpuscular Hemoglobin Concent 33.7 % Red Cell Distribution Width 16.0 % Platelet Count 213 TH/MM3 Mean Platelet Volume 7.6 FL Neutrophils (%) (Auto) 75.8 % Lymphocytes (%) (Auto) 11.3 % Monocytes (%) (Auto) 8.0 % Eosinophils (%) (Auto) 3.9 % Basophils (%) (Auto) 1.0 % Neutrophils # (Auto) 5.9 TH/MM3 Lymphocytes # (Auto) 0.9 TH/MM3 Monocytes # (Auto) 0.6 TH/MM3 Eosinophils # (Auto) 0.3 TH/MM3 Basophils # (Auto) 0.1 TH/MM3 CBC Comment DIFF FINAL Differential Comment Prothrombin Time 12.6 SEC Prothromb Time International Ratio 1.2 RATIO Activated Partial Thromboplast Time 32.7 SEC Blood Urea Nitrogen 20 MG/DL Creatinine 1.32 MG/DL Random Glucose 89 MG/DL Calcium Level 8.8 MG/DL Magnesium Level 2.3 MG/DL Sodium Level 145 MEQ/L Potassium Level 4.6 MEQ/L Chloride Level 110 MEQ/L Carbon Dioxide Level 30.7 MEQ/L Anion Gap 4 MEQ/L Estimat Glomerular Filtration Rate 53 ML/MIN Total Creatine Kinase 24 U/L Troponin I LESS THAN 0.02 NG/ML B-Type Natriuretic Peptide 767 PG/ML MDM Medical Decision Making Medical Screen Exam Complete: Yes Emergency Medical Condition: Yes Medical Record Reviewed: Yes Interpretation(s) Twelve-lead EKG was reviewed by me. A. fib, left axis deviation, low voltage, RVR. Heart rate of 124 bpm Differential Diagnosis Congestive heart failure, non-STEMI, A. fib with RVR, GI bleed Narrative Course 6:17 PM blood test results are back. H&H is stable. I have started him on Cardizem bolus and drip. Patient will also receive Lasix 40 mg given his chest x-ray finding. I have also explained to him that he will need to be admitted for further workup for the chest pain as well as a GI bleed and they're agreeable to the plan. Critical Care Narrative Aggregate critical care time was 30 minutes. Time to perform other separately billable procedures was not included in the critical care time. My time did not include minutes spent treating any other patients simultaneously or on activities that did not directly contribute to the patient's treatment. The services I provided to this patient were to treat and/or prevent clinically significant deterioration that could result in: GI bleed, A. fib with RVR, Cardizem bolus and drip, Protonix bolus and drip I provided critical care services requiring my management, as noted below: Chart data review, documentation time, medication orders and management, vital sign assessments/reviewing monitor data, ordering and reviewing lab tests, ordering and interpreting/reviewing x-rays and diagnostic studies, care of the patient and discussion of the patient with the admitting physicians. Procedures EKG Prior to Arrival: No HemaPrompt Point of Care Internal Pos. & Neg. Controls: Passed Fecal Specimen Occult Blood: Positive Diagnosis Primary Impression: Respiratory distress Additional Impressions: Congestive heart failure Qualified Codes: I50.9 - Heart failure, unspecified Atrial fibrillation with RVR Chest pain Qualified Codes: R07.9 - Chest pain, unspecified GI bleed Qualified Codes: K92.2 - Gastrointestinal hemorrhage, unspecified Admitting Information Admitting Physician Requests: Carmelo Baires MD Nov 05, 2017 17:57
[2017-11-05] MEDS ORDERED: DILTIAZEM HCL 25 MG/5 ML VIAL IV PUSH ONE (18:15)
[2017-11-05] MEDS ORDERED: FUROSEMIDE 40 MG/4 ML VIAL IV PUSH ONE (18:15)
[2017-11-05] MEDS ORDERED: DILTIAZEM INJ 125 MG in SODIUM CHLORIDE 0.9% INJ 100 ML IV PRN (18:15)
[2017-11-05] MEDS ORDERED: FERR325T18 PO (18:17)
[2017-11-05] MEDS ORDERED: DILT360C12 PO (18:17)
[2017-11-05] MEDS ORDERED: NALOXONE HCL 0.4 MG/ML AMP IV PUSH PRN (18:45)
[2017-11-05] MEDS ORDERED: SODIUM CHLORIDE 0.9% FLUSH 10 ML FLUSH IV FLUSH PRN (18:45)
[2017-11-05] MEDS ORDERED: PANTOPRAZOLE INJ 80 MG in SODIUM CHLORIDE 0.9% INJ 35 ML IV ONE (19:21)
[2017-11-05] MEDS: PANTOPRAZOLE INJ 80 MG in SODIUM CHLORIDE 0.9% INJ 100 ML IV SCH (19:21)
--- NOTE | 2017-11-05 20:35 | HHI.HP ---
HPI Service [facility] ([place], [place])ists Primary Care Physician López Turner MD Admission Diagnosis chest pain, A. fib with RVR, GI bleed Diagnoses: Travel History International Travel<30 Days: No Contact w/Intl Traveler <30 Da: No Traveled to Known Affected Are: No History of Present Illness 77-year-old male with a past medical history significant for atrial fibrillation , anticoagulated on Eliquis, hypertension, hyperlipidemia and congestive heart failure (last echo 08/18/17 showed an EF of 55-60%) [place] the emergency department with a chief complaint of shortness of breath and chest tightness/ pressure. The patient reports that his symptoms have progressively worsened over the past 2 days. He also reports an increased in bilateral lower extremity edema and intermittent heart palpitations. He states he has had dark , tarry stools for the past 2 days. He denies any fevers or chills. No nausea/ vomiting/diarrhea. No dizziness or lightheadedness or fatigue. Review of Systems Except as stated in HPI: all other systems reviewed are Neg Past Family Social History Past Medical History Atrial fibrillation CHF Hypertension Hyperlipidemia Past Surgical History CABG 5 in 2002 Reported Medications Reported Meds & Active Scripts Active [Albuterol-Ipratropium Neb] 1 AMPULE Nebu 1 Ampule NEB Q6HR NEB PRN 30 Days Reported Ferrous Sulfate 325 Mg (65 Mg Iron) Tablet 325 Mg PO DAILY Diltiazem CD 24 HR 360 Mg Capcr 360 Mg PO DAILY Eliquis (Apixaban) 5 Mg Tab 5 Mg PO BID Vitamin B-12 (Cyanocobalamin) 1,000 Mcg Tab 1,000 Mcg PO DAILY Furosemide 40 Mg Tab 40 Mg PO DAILY Vitamin D-1000 (Cholecalciferol) 1,000 Unit Tab 2,000 Units PO DAILY Lisinopril 10 Mg Tab 25 Mg PO DAILY Crestor (Rosuvastatin Calcium) 20 Mg Tab 20 Mg PO DAILY Isosorbide Mononitrate 20 Mg Tab 60 Mg PO DAILY Take 2 doses 7 hours apart. Symbicort Inh (Budesonide/Formoterol Fumarate) 80-4.5 Mcg/Act Aero 2 Puff INH Q12HR Aspirin 81 Mg Chew 81 Mg CHEW DAILY Allergies: Coded Allergies: No Known Allergies (Verified , 06/25/10) Family History Negative for CAD/DM Social History Rare alcohol. Negative for tobacco or illicit drugs. Physical Exam Vital Signs Vital Signs Date Time Temp Pulse Resp B/P (MAP) Pulse Ox O2 Delivery O2 Flow Rate FiO2 11/05/17 18:49 112 150/84 11/05/17 18:21 107 18 150/84 (106) 97 Nasal Cannula 2.00 11/05/17 17:59 121 18 134/78 (96) 97 Room Air 11/05/17 17:53 121 16 96 Room Air 11/05/17 16:53 98.2 127 18 103/67 (79) 96 Physical Exam GENERAL: male sitting up in bed SKIN: No rashes, ecchymoses or lesions. Cool and dry. HEAD: Atraumatic. Normocephalic. No temporal or scalp tenderness. EYES: Pupils equal round and reactive. Extraocular motions intact. No scleral icterus. No injection or drainage. ENT: Nose without bleeding, purulent drainage or septal hematoma. Throat without erythema, tonsillar hypertrophy or exudate. Uvula midline. Airway patent. NECK: Trachea midline. No JVD or lymphadenopathy. Supple, nontender, no meningeal signs. CARDIOVASCULAR: Tachycardic with irregularly irregular rhythm without murmurs, gallops, or rubs. RESPIRATORY: Crackles in the bases bilaterally. Breath sounds equal bilaterally. No wheezes, rales, or rhonchi. GASTROINTESTINAL: Abdomen soft, non-tender, nondistended. No hepato-splenomegaly , or palpable masses. No guarding. MUSCULOSKELETAL: Extremities without clubbing, cyanosis, or edema. No joint tenderness, effusion, or edema noted. No calf tenderness. NEUROLOGICAL: Awake and alert. Cranial nerves II through XII intact. Motor and sensory grossly within normal limits. Normal speech. Laboratory Laboratory Tests Test 11/05/17 17:19 White Blood Count 7.8 Red Blood Count 3.81 Hemoglobin 11.8 Hematocrit 34.9 Mean Corpuscular Volume 91.5 Mean Corpuscular Hemoglobin 30.9 Mean Corpuscular Hemoglobin Concent 33.7 Red Cell Distribution Width 16.0 Platelet Count 213 Mean Platelet Volume 7.6 Neutrophils (%) (Auto) 75.8 Lymphocytes (%) (Auto) 11.3 Monocytes (%) (Auto) 8.0 Eosinophils (%) (Auto) 3.9 Basophils (%) (Auto) 1.0 Neutrophils # (Auto) 5.9 Lymphocytes # (Auto) 0.9 Monocytes # (Auto) 0.6 Eosinophils # (Auto) 0.3 Basophils # (Auto) 0.1 CBC Comment DIFF FINAL Differential Comment Prothrombin Time 12.6 Prothromb Time International Ratio 1.2 Activated Partial Thromboplast Time 32.7 Blood Urea Nitrogen 20 Creatinine 1.32 Random Glucose 89 Calcium Level 8.8 Magnesium Level 2.3 Sodium Level 145 Potassium Level 4.6 Chloride Level 110 Carbon Dioxide Level 30.7 Anion Gap 4 Estimat Glomerular Filtration Rate 53 Total Creatine Kinase 24 Troponin I LESS THAN 0.02 B-Type Natriuretic Peptide 767 Result Diagram: 11/05/17171811/05/171718 Caprin VTE Risk Assessment Caprin VTE Risk Assessment: Mod/High Risk (score >= 2) Caprini Risk Assessment Model Point Value = 1 Point Value = 2 Point Value = 3 Point Value = 5 Age 41-60 Minor surgery BMI > 25 kg/m2 Swollen legs Varicose veins or History of unexplained or recurrent spontaneous Oral contraceptives or hormone replacement Sepsis (< 1 month) Serious lung disease, including pneumonia (< 1 month) Abnormal pulmonary function Acute myocardial infarction Congestive heart failure (< 1 month) History of inflammatory bowel disease Medical patient at bed rest Age 61-74 Arthroscopic surgery Major open surgery (> 45 min) Laparoscopic surgery (> 45 min) Malignancy Confined to bed (> 72 hours) Immobilizing plaster cast Central venous access Age >= 75 History of VTE Family history of VTE Factor V Leiden Prothrombin [id number] Lupus anticoagulant Anticardiolipin antibodies Elevated serum homocysteine Heparin-induced thrombocytopenia Other congenital or acquired thrombophilia Stroke (< 1 month) Elective arthroplasty Hip, pelvis, or leg fracture Acute spinal cord injury (< 1 month) Prophylaxis Regimen Total Risk Factor Score Risk Level Prophylaxis Regimen 0-1 Low Early ambulation 2 Moderate Order ONE of the following: *Sequential Compression Device (SCD) *Heparin 5000 units SQ BID 3-4 Higher Order ONE of the following medications: *Heparin 5000 units SQ TID *Enoxaparin/Lovenox 40 mg SQ daily (WT < 150 kg, CrCl > 30 mL/min) *Enoxaparin/Lovenox 30 mg SQ daily (WT < 150 kg, CrCl > 10-29 mL/min) *Enoxaparin/Lovenox 30 mg SQ BID (WT < 150 kg, CrCl > 30 mL/min) AND/OR *Sequential Compression Device (SCD) 5 or more Highest Order ONE of the following medications: *Heparin 5000 units SQ TID (Preferred with Epidurals) *Enoxaparin/Lovenox 40 mg SQ daily (WT < 150 kg, CrCl > 30 mL/min) *Enoxaparin/Lovenox 30 mg SQ daily (WT < 150 kg, CrCl > 10-29 mL/min) *Enoxaparin/Lovenox 30 mg SQ BID (WT < 150 kg, CrCl > 30 mL/min) AND *Sequential Compression Device (SCD) Assessment and Plan Assessment and Plan Assessment/plan: 1. Atrial fibrillation with RVR EKG significant for atrial fibrillation with rapid ventricular response, no ST segment elevations or depressions Diltiazem bolus and drip Wean drip as tolerated Continue home medications 2. Chest pain/shortness of breath/CHF exacerbation EKG as above Initial troponin negative ACS rule out pending; serial troponin/EKGs IV Lasix 3. GI bleed Repeat CBC in 6 hours Protonix drip Transfuse as needed Holding home [facility] consulted, appreciate recommendations 4. Hypertension/hyperlipidemia Continue home medications 5. CKD Cr 1.32, improved from previous Monitor renal function FEN NPO Electrolytes: monitor and replete prn Holding pharmacologic anticoagulation for GI bleed Physician Certification 2 Midnight Certification Type: Admission for Inpatient Services Order for Inpatient Services The services are ordered in accordance with Medicare regulations or non- Medicare payer requirements, as applicable. In the case of services not specified as inpatient-only, they are appropriately provided as inpatient services in accordance with the 2-midnight benchmark. Estimated LOS (days): 2 2 days is the estimated time the patient will need to remain in the hospital, assuming treatment plan goals are met and no additional complications. Post-Hospital Plan: Not yet determined Aleta Mendez MD Nov 05, 2017 20:35
[2017-11-05] MEDS ORDERED: PILL SPLITTER OTHER PRN (22:15)
[2017-11-06] VITALS (31 sets, daily range): BP systolic 90–113; BP diastolic 51–65; PULSE 52–96; RESP 14–20; TEMP 97.2–97.9; O2SAT 97–100
[2017-11-06 00:20] LABS: AUTOMATED NEUTROPHIL # 6.7 TH/MM3 (1.8-7.7); BASOPHIL # 0.1 TH/MM3 (0-0.2); BASOPHIL % 1.2 % (0.0-2.0); EOSINOPHIL # 0.3 TH/MM3 (0-0.4); EOSINOPHIL % 3.9 % (0.0-4.0); HEMATOCRIT 31.6 % (39.0-51.0); HEMOGLOBIN 10.4 GM/DL (13.0-17.0); LYMPH % 10.1 % (9.0-44.0); LYMPHOCYTE # 0.9 TH/MM3 (1.0-4.8); MEAN CELL VOLUME 90.2 FL (80.0-100.0); MEAN CORPUSCULAR HEMOGLOBIN 29.7 PG (27.0-34.0); MEAN PLATELET VOLUME 7.8 FL (7.0-11.0); MONO % 7.6 % (0.0-8.0); MONOCYTE # 0.7 TH/MM3 (0-0.9); NEUT % 77.2 % (16.0-70.0); PLATELET COUNT 217 TH/MM3 (150-450); RED CELL DISTRIBUTION WIDTH 15.9 % (11.6-17.2); WHITE BLOOD COUNT 8.7 TH/MM3 (4.0-11.0)
[2017-11-06 00:45] LABS: TROPONIN I LESS THAN 0.02 NG/ML (0.02-0.05)
[2017-11-06 05:35] LABS: AUTOMATED NEUTROPHIL # 5.7 TH/MM3 (1.8-7.7); BASOPHIL # 0.1 TH/MM3 (0-0.2); EOSINOPHIL # 0.3 TH/MM3 (0-0.4); EOSINOPHIL % 4.2 % (0.0-4.0); HEMATOCRIT 31.9 % (39.0-51.0); HEMOGLOBIN 10.7 GM/DL (13.0-17.0); LYMPH % 10.9 % (9.0-44.0); LYMPHOCYTE # 0.8 TH/MM3 (1.0-4.8); MEAN CELL VOLUME 90.7 FL (80.0-100.0); MEAN CORPUSCULAR HEMOGLOBIN 30.4 PG (27.0-34.0); MEAN CORPUSCULAR HGB CONC 33.5 % (32.0-36.0); MEAN PLATELET VOLUME 7.7 FL (7.0-11.0); MONO % 7.2 % (0.0-8.0); MONOCYTE # 0.5 TH/MM3 (0-0.9); NEUT % 76.7 % (16.0-70.0); PLATELET COUNT 203 TH/MM3 (150-450); RED BLOOD COUNT 3.52 MIL/MM3 (4.50-5.90); RED CELL DISTRIBUTION WIDTH 15.5 % (11.6-17.2); WHITE BLOOD COUNT 7.4 TH/MM3 (4.0-11.0)
[2017-11-06 06:03] LABS: BICARBONATE 30.7 MEQ/L (21.0-32.0); CALCIUM 8.7 MG/DL (8.5-10.1); CREATININE 1.49 MG/DL (0.60-1.30)
[2017-11-06 06:08] LABS: TROPONIN I LESS THAN 0.02 NG/ML (0.02-0.05)
[2017-11-06] MEDS: PANTOPRAZOLE INJ 80 MG in SODIUM CHLORIDE 0.9% INJ 100 ML IV SCH ×2 (08:41→15:51)
[2017-11-06] MEDS: BUDESONIDE-FORMOTEROL 80/4.5 MCG INHALER INH SCH ×3 (09:00→21:00)
[2017-11-06] MEDS: SODIUM CHLORIDE 0.9% FLUSH 10 ML FLUSH IV FLUSH SCH (09:00)
[2017-11-06] MEDS: ATORVASTATIN 40 MG TAB PO SCH (09:02)
[2017-11-06] MEDS: LISINOPRIL 10 MG TAB PO SCH (09:04)
[2017-11-06] MEDS: FUROSEMIDE 40 MG/4 ML VIAL IV PUSH SCH ×2 (09:05→17:41)
[2017-11-06] MEDS: ISOSORBIDE MONONITRATE 60 MG CR TAB (IMDUR) PO SCH (09:05)
[2017-11-06] MEDS: DILTIAZEM-CD 180 MG CAP ER PO SCH (09:07)
--- NOTE | 2017-11-06 14:08 | PD.CONS ---
HPI History of Present Illness This is a 77 year old M with PMH significant for a-fib, anticoagulated with Eliquis, HTN, HLD, CHF, S/P CABG x 4 in 2003, and PUD. Pt presented to the ER yesterday with complaints of SOB and chest tightness progressing over past two days as well as BLE edema. GI has been consulted to evaluate pt for reports of black, tarry stools. Pt reports he has been having black stools for the past week. However, he reports he was started on iron supplement by his PCP a few weeks ago and that he was having black stools prior to starting on supplements so exact timing is unclear. He denies multiple episodes, states he has a few a day, last BM was yesterday. Pt does report history of PUD in 2002, has had EGD since, last one approx 5 years ago and the thinks the exam was normal. Denies associated acid reflux, heartburn, epigastric pain, nausea, vomiting. Does report intermittent lower abdominal pain, seems to be related to eating, unsure of any alleviating factors. Last colonoscopy was in 2002 and he thinks the exam was normal. Admits to ETOH, couple beers a week. Denies smoking, NSAIDs. Last dose of Eliquis was received yesterday morning before coming to the hospital. (Tamika Jennings) PFSH Past Medical History Atrial fibrillation CHF Hypertension Hyperlipidemia PUD Past Surgical History CABG 5 in 2002 (Tamika Jennings) Coded Allergies: No Known Allergies (Verified , 06/25/10) Family History Negative for CAD/DM Social History Rare alcohol. Negative for tobacco or illicit drugs. (Tamika Jennings) Review of Systems Gastrointestinal: COMPLAINS OF: Abdominal pain, Black stools, DENIES: Bloody stools, Constipation, Diarrhea, Nausea, Vomiting, Difficulty Swallowing, Odynophagia, Swelling of Abdomen, Heartburn, Hematemesis (Tamika Jennings) GI Exam Vitals I&O Vital Signs Date Time Temp Pulse Resp B/P (MAP) Pulse Ox O2 Delivery O2 Flow Rate FiO2 11/06/17 13:00 71 11/06/17 12:13 71 11/06/17 12:00 77 11/06/17 11:00 99 Nasal Cannula 2.00 11/06/17 11:00 97.9 91 20 110/61 (77) 99 11/06/17 11:00 90 11/06/17 10:14 91 11/06/17 10:00 86 11/06/17 09:25 96 11/06/17 09:00 80 11/06/17 08:34 82 11/06/17 08:23 98 Nasal Cannula 2.00 11/06/17 08:00 90 11/06/17 07:30 97.6 82 14 113/65 (81) 98 11/06/17 07:15 80 11/06/17 07:15 98 Nasal Cannula 2.00 11/06/17 06:41 84 11/06/17 05:00 73 11/06/17 04:00 66 11/06/17 03:00 75 11/06/17 03:00 97.7 80 20 101/56 (71) 97 11/06/17 02:00 66 11/06/17 01:00 66 11/06/17 00:00 64 11/05/17 23:00 60 11/05/17 23:00 97.9 63 18 97/55 (69) 98 11/05/17 23:00 60 11/05/17 22:00 66 11/05/17 21:00 68 11/05/17 20:45 97.9 67 20 107/58 (74) 97 11/05/17 20:45 67 107/58 11/05/17 20:45 71 11/05/17 19:30 97 Nasal Cannula 2.00 11/05/17 18:49 112 150/84 11/05/17 18:21 107 18 150/84 (106) 97 Nasal Cannula 2.00 11/05/17 17:59 121 18 134/78 (96) 97 Room Air 11/05/17 17:53 121 16 96 Room Air 11/05/17 16:53 98.2 127 18 103/67 (79) 96 I/O 11/05/17 11/05/17 11/05/17 11/06/17 11/06/17 11/06/17 07:00 15:00 23:00 07:00 15:00 23:00 Intake Total 35 ml 460 ml 170 ml Output Total 420 ml Balance 35 ml 40 ml 170 ml Intake Oral 460 ml IV Total 35 ml 170 ml Output Urine Total 420 ml # Bowel Movements 0 Imaging Last Impressions Chest X-Ray 11/05/17 [id number] Signed Impressions: Service Date/Time: Sunday, November 05, 2017 17:08 - CONCLUSION: Mild parenchymal edema and small effusions. Arnel Subramanian MD Laboratory Test 11/05/17 17:19 11/05/17 23:35 11/06/17 05:05 White Blood Count 7.8 TH/MM3 8.7 TH/MM3 7.4 TH/MM3 Red Blood Count 3.81 MIL/MM3 3.50 MIL/MM3 3.52 MIL/MM3 Hemoglobin 11.8 GM/DL 10.4 GM/DL 10.7 GM/DL Hematocrit 34.9 % 31.6 % 31.9 % Mean Corpuscular Volume 91.5 FL 90.2 FL 90.7 FL Mean Corpuscular Hemoglobin 30.9 PG 29.7 PG 30.4 PG Mean Corpuscular Hemoglobin Concent 33.7 % 33.0 % 33.5 % Red Cell Distribution Width 16.0 % 15.9 % 15.5 % Platelet Count 213 TH/MM3 217 TH/MM3 203 TH/MM3 Mean Platelet Volume 7.6 FL 7.8 FL 7.7 FL Neutrophils (%) (Auto) 75.8 % 77.2 % 76.7 % Lymphocytes (%) (Auto) 11.3 % 10.1 % 10.9 % Monocytes (%) (Auto) 8.0 % 7.6 % 7.2 % Eosinophils (%) (Auto) 3.9 % 3.9 % 4.2 % Basophils (%) (Auto) 1.0 % 1.2 % 1.0 % Neutrophils # (Auto) 5.9 TH/MM3 6.7 TH/MM3 5.7 TH/MM3 Lymphocytes # (Auto) 0.9 TH/MM3 0.9 TH/MM3 0.8 TH/MM3 Monocytes # (Auto) 0.6 TH/MM3 0.7 TH/MM3 0.5 TH/MM3 Eosinophils # (Auto) 0.3 TH/MM3 0.3 TH/MM3 0.3 TH/MM3 Basophils # (Auto) 0.1 TH/MM3 0.1 TH/MM3 0.1 TH/MM3 CBC Comment DIFF FINAL DIFF FINAL DIFF FINAL Differential Comment Prothrombin Time 12.6 SEC Prothromb Time International Ratio 1.2 RATIO Activated Partial Thromboplast Time 32.7 SEC Blood Urea Nitrogen 20 MG/DL 23 MG/DL Creatinine 1.32 MG/DL 1.49 MG/DL Random Glucose 89 MG/DL 98 MG/DL Calcium Level 8.8 MG/DL 8.7 MG/DL Magnesium Level 2.3 MG/DL Sodium Level 145 MEQ/L 143 MEQ/L Potassium Level 4.6 MEQ/L 4.3 MEQ/L Chloride Level 110 MEQ/L 107 MEQ/L Carbon Dioxide Level 30.7 MEQ/L 30.7 MEQ/L Anion Gap 4 MEQ/L 5 MEQ/L Estimat Glomerular Filtration Rate 53 ML/MIN 46 ML/MIN Total Creatine Kinase 24 U/L 20 U/L 18 U/L Troponin I LESS THAN 0.02 NG/ML LESS THAN 0.02 NG/ML LESS THAN 0.02 NG/ML B-Type Natriuretic Peptide 767 PG/ML Physical Examination HEENT: Normocephalic; atraumatic CHEST: Even/unlabored CARDIAC: Irregularly irregular ABDOMEN: Distended, soft, nontender, bowel sounds active EXTREMITIES: BLE edema SKIN: Normal; no rash; no jaundice. FACULTY MEMBER: No focal deficits; alert and oriented times three. (Tamika Jennings) Assessment and Plan Plan Assessment: - Anemia- possible GIB- H/H currently 10.7/31.9, normocytic. Pt reports black stools for the past week, however exact timing is unclear. Reports being started on iron supplements by PCP a few weeks ago and states black stools started prior to this. Denies associated acid reflux, heartburn, epigastric pain, nausea, vomiting, dysphagia. History of PUD in 2002. Last EGD was 5-6 years ago and he thinks exam was normal. On Eliquis for a-fib. Rare ETOH. Denies NSAIDs and smoking. - Lower abdominal pain, intermittent, thinks it may be associated with eating, unsure of any alleviating factors. Not TTP, no pain at time of my exam. - A-fib on anticoagulation with Eliquis, last dose received yesterday morning Plan EGD/colonoscopy tomorrow Obtain consent Clear liquids today GoLytely prep NPO after MN Monitor H/H Hold Eliquis Protonix gtt CT abdomen and pelvis W/O IV contrast (impaired renal function) Further recommendations to follow based on results of above Pt has been seen and examined by myself and Dr. Brady and this note is written on his behalf (Tamika Jennings) Plan Patient was seen and examined, agree with above-noted, patient has GI bleed, he will need to have upper endoscopy and colonoscopy if okay with primary team, from cardiac standpoint, we will hold Eliquis, further plan depends on the finding (Ilya Brady MD) Tamika Jennings Nov 06, 2017 14:08 Ilya Brady MD Nov 06, 2017 15:22
[2017-11-06] MEDS ORDERED: DIATRIZOATE MEGLUM/DIATRIZOATE SOD 9 ML CUP PO ONE (14:45)
--- NOTE | 2017-11-06 15:57 | HHI.PR ---
Subjective Remarks RVR has resolved. Patient has no complaints of chest pain today. CBC remains relatively stable. Objective Vital Signs Date Time Temp Pulse Resp B/P (MAP) Pulse Ox O2 Delivery O2 Flow Rate FiO2 11/06/17 15:00 100 Nasal Cannula 2.00 11/06/17 15:00 97.2 59 18 100/54 (69) 100 11/06/17 15:00 69 11/06/17 14:00 59 11/06/17 13:00 71 11/06/17 12:13 71 11/06/17 12:00 77 11/06/17 11:00 99 Nasal Cannula 2.00 11/06/17 11:00 97.9 91 20 110/61 (77) 99 11/06/17 11:00 90 11/06/17 10:14 91 11/06/17 10:00 86 11/06/17 09:25 96 11/06/17 09:00 80 11/06/17 08:34 82 11/06/17 08:23 98 Nasal Cannula 2.00 11/06/17 08:00 90 11/06/17 07:30 97.6 82 14 113/65 (81) 98 11/06/17 07:15 80 11/06/17 07:15 98 Nasal Cannula 2.00 11/06/17 06:41 84 11/06/17 05:00 73 11/06/17 04:00 66 11/06/17 03:00 75 11/06/17 03:00 97.7 80 20 101/56 (71) 97 11/06/17 02:00 66 11/06/17 01:00 66 11/06/17 00:00 64 11/05/17 23:00 60 11/05/17 23:00 97.9 63 18 97/55 (69) 98 11/05/17 23:00 60 11/05/17 22:00 66 11/05/17 21:00 68 11/05/17 20:45 97.9 67 20 107/58 (74) 97 11/05/17 20:45 67 107/58 11/05/17 20:45 71 11/05/17 19:30 97 Nasal Cannula 2.00 11/05/17 18:49 112 150/84 11/05/17 18:21 107 18 150/84 (106) 97 Nasal Cannula 2.00 11/05/17 17:59 121 18 134/78 (96) 97 Room Air 11/05/17 17:53 121 16 96 Room Air 11/05/17 16:53 98.2 127 18 103/67 (79) 96 I/O 11/05/17 11/05/17 11/05/17 11/06/17 11/06/17 11/06/17 07:00 15:00 23:00 07:00 15:00 23:00 Intake Total 35 ml 460 ml 170 ml Output Total 420 ml Balance 35 ml 40 ml 170 ml Intake Oral 460 ml IV Total 35 ml 170 ml Output Urine Total 420 ml # Bowel Movements 0 Result Diagram: 11/06/17 0505 11/06/17 0505 Objective Remarks GENERAL: NAD, A&Ox3 HEAD: Normocephalic. NECK: Supple, trachea midline. No lymphadenopathy. EYES: No scleral icterus. No injection or drainage. CARDIOVASCULAR: Irregularly irregular rhythm without murmurs, gallops, or rubs. RESPIRATORY: Breath sounds equal bilaterally. No accessory muscle use. GASTROINTESTINAL: Abdomen soft, non-tender, nondistended. MUSCULOSKELETAL: No cyanosis, or edema. SKIN: Warm and dry. NEURO: No focal neurological deficitis. A/P Problem List: (1) Atrial fibrillation with RVR ICD Code: I48.91 - Unspecified atrial fibrillation (2) GI bleed ICD Code: K92.2 - Gastrointestinal hemorrhage, unspecified Status: Acute (3) Chest pain ICD Code: R07.9 - Chest pain, unspecified Status: Acute (4) Respiratory distress ICD Code: R06.03 - Acute respiratory distress Status: Acute (5) Congestive heart failure ICD Code: I50.9 - Heart failure, unspecified Status: Acute (6) COPD with exacerbation ICD Code: J44.1 - Chronic obstructive pulmonary disease with (acute) exacerbation (7) Acute exacerbation of CHF (congestive heart failure) ICD Code: I50.9 - Heart failure, unspecified Assessment and Plan 77-year-old male admitted secondary to A. fib RVR with GI bleed Negative ACS workup, patient is out of A. fib RVR. Back to baseline atrial fibrillation. Patient is medically cleared for EGD tomorrow. Atrial fibrillation with RVR Chest pain/shortness of breath/CHF exacerbation RVR has resolved Diltiazem drip has been weaned No signs of recurrence of RVR Continue home medications Cardiology consulted for clearance for EGD Negative ACS workup GI bleed Follow CBC Protonix drip Holding home [facility] following Medically cleared for procedure Hypertension Continue baseline treatment Follow blood pressures Adjust treatments as needed Hyperlipidemia Continue present treatment Follow as an outpatient Chronic kidney disease Follow renal function DVT prophylaxis SCDs Problem Qualifiers (1) GI bleed: Qualified Codes: K92.2 - Gastrointestinal hemorrhage, unspecified (2) Chest pain: Qualified Codes: R07.9 - Chest pain, unspecified (3) Congestive heart failure: Qualified Codes: I50.9 - Heart failure, unspecified Raghav Yeager MD Nov 06, 2017 15:57
[2017-11-06] MEDS ORDERED: PEG (High)/E-LYTE SOLN 4000 ML BTL PO ONE (16:00)
--- NOTE | 2017-11-06 17:23 | RADRPT ---
EXAM DATE/TIME: 11/06/2017 16:11 [facility] COMPARISON: No previous studies available for comparison. INDICATIONS : Lower abdomen pain ORAL CONTRAST: Prescribed oral contrast ingested. RADIATION DOSE: 24.82 CTDIvol (mGy) MEDICAL HISTORY : Cardiovascular disease. Chronic obstructive pulmonary disease. SURGICAL HISTORY : None. ENCOUNTER: Initial ACUITY: 1 day PAIN SCALE: 5/10 LOCATION: lower quadrant abdomen TECHNIQUE: Volumetric scanning of the abdomen and pelvis was performed. Using automated exposure control and ad justment of the mA and/or kV according to patient size, radiation dose was kept as low as reasonably achievable to obtain optimal diagnostic quality images. DICOM format image data is available electro nically for review and comparison. FINDINGS: Small bilateral pleural effusions are present right greater than left. There is subsegmental atelecta sis in the right base. The liver and spleen are free of focal defects. The gallbladder and pancreas d emonstrate no abnormality. The adrenal glands are normal. The kidneys demonstrate no evidence of fabian d renal mass or hydronephrosis. No free fluid or abdominal masses are identified. No para-aortic vik opathy is seen. Examination of the pelvis demonstrates no evidence of free fluid or pelvic mass. No abnormally enlarg ed inguinal or retroperitoneal lymph nodes are present. The bladder is unremarkable. A fat containing left inguinal hernia is present. CONCLUSION: No evidence of acute abdominal or pelvic process. No masses are identified. Small bilateral effusions and right basilar atelectasis Marcos Mathis MD on November 06, 2017 at 17:18 Board Certified Radiologist. This report was verified electronically.
--- NOTE | 2017-11-06 17:59 | PD.PN.STU ---
Subjective Remarks Patient seen by cardiology, consulted for clearance for egd/colonoscopy tomorrow for treatment of GI bleed due to presentation with afib rvr. Since stabilization patient has had cardizem drip d/c'ed with resolution of rvr, patient currently in rate controlled afib at rate of 63bpm. States mild chest tightness without pain. Notes this is similar to his baseline status prior to admission. Patient low risk for egd from cardiac standpoint. Continue telemetry. Objective Vitals Vital Signs Date Time Temp Pulse Resp B/P (MAP) Pulse Ox O2 Delivery O2 Flow Rate FiO2 11/06/17 17:00 66 11/06/17 16:00 52 11/06/17 15:00 100 Nasal Cannula 2.00 11/06/17 15:00 97.2 59 18 100/54 (69) 100 11/06/17 15:00 69 11/06/17 14:00 59 11/06/17 13:00 71 11/06/17 12:13 71 11/06/17 12:00 77 11/06/17 11:00 99 Nasal Cannula 2.00 11/06/17 11:00 97.9 91 20 110/61 (77) 99 11/06/17 11:00 90 11/06/17 10:14 91 11/06/17 10:00 86 11/06/17 09:25 96 11/06/17 09:00 80 11/06/17 08:34 82 11/06/17 08:23 98 Nasal Cannula 2.00 11/06/17 08:00 90 11/06/17 07:30 97.6 82 14 113/65 (81) 98 11/06/17 07:15 80 11/06/17 07:15 98 Nasal Cannula 2.00 11/06/17 06:41 84 11/06/17 05:00 73 11/06/17 04:00 66 11/06/17 03:00 75 11/06/17 03:00 97.7 80 20 101/56 (71) 97 11/06/17 02:00 66 11/06/17 01:00 66 11/06/17 00:00 64 11/05/17 23:00 60 11/05/17 23:00 97.9 63 18 97/55 (69) 98 11/05/17 23:00 60 11/05/17 22:00 66 11/05/17 21:00 68 11/05/17 20:45 97.9 67 20 107/58 (74) 97 11/05/17 20:45 67 107/58 11/05/17 20:45 71 11/05/17 19:30 97 Nasal Cannula 2.00 11/05/17 18:49 112 150/84 11/05/17 18:21 107 18 150/84 (106) 97 Nasal Cannula 2.00 11/05/17 17:59 121 18 134/78 (96) 97 Room Air 11/05/17 17:53 121 16 96 Room Air I/O 11/05/17 11/05/17 11/05/17 11/06/17 11/06/17 11/06/17 07:00 15:00 23:00 07:00 15:00 23:00 Intake Total 35 ml 460 ml 170 ml 100 ml Output Total 420 ml Balance 35 ml 40 ml 170 ml 100 ml Intake Oral 460 ml IV Total 35 ml 170 ml 100 ml Output Urine Total 420 ml # Bowel Movements 0 Result Diagram: 11/06/17 0505 11/06/17 0505 Imaging Last 72 hours Impressions Chest X-Ray 11/05/17 1655 Signed Impressions: Service Date/Time: Sunday, November 05, 2017 17:08 - CONCLUSION: Mild parenchymal edema and small effusions. Arnel Subramanian MD Objective Remarks GENERAL: This is a well-nourished, well-developed overweight patient in no apparent distress.. NECK: Trachea midline. No JVD or lymphadenopathy. CARDIOVASCULAR: Regular rate and rhythm without murmurs, gallops, or rubs. RESPIRATORY: Clear to auscultation. Breath sounds equal bilaterally. No wheezes , rales, or rhonchi. Breathing comfortably. MUSCULOSKELETAL: 1+ edema bilaterally lower extremities. Medications and IVs Current Medications Medications (Trade) Dose Ordered Sig/Melody Route PRN Reason Start Time Stop Time Status Last Admin Dose Admin Pantoprazole Sodium 80 mg/ Sodium Chloride 100 ml @ 10 mls/hr Q10H IV 11/05/17 19:21 11/06/17 15:51 Sodium Chloride (NS Flush) 2 ml UNSCH PRN IV FLUSH FLUSH AFTER USING IV ACCESS 11/05/17 18:45 Sodium Chloride (NS Flush) 2 ml BID IV FLUSH 11/05/17 21:00 Naloxone HCl (Narcan Inj) 0.4 mg UNSCH PRN IV PUSH SEE LABEL COMMENTS 11/05/17 18:45 Furosemide (Lasix Inj) 40 mg BID@ IV PUSH 11/06/17 09:00 11/06/17 09:05 Budesonide/ Formoterol Fumarate (Symbicort 80-4.5 Mcg Inh) 2 puff Q12HR INH 11/05/17 21:00 11/06/17 10:42 Diltiazem HCl (Cardizem Cd) 360 mg DAILY PO 11/06/17 09:00 11/06/17 09:07 Isosorbide Mononitrate (Imdur) 60 mg DAILY PO 11/06/17 09:00 11/06/17 09:05 Lisinopril (Prinivil) 5 mg DAILY PO 11/06/17 09:00 11/06/17 09:04 Atorvastatin Calcium (Lipitor) 40 mg DAILY PO 11/06/17 09:00 11/06/17 09:02 Miscellaneous (Pill Splitter) 1 ea UNSCH PRN OTHER SEE LABEL COMMENTS 11/05/17 22:15 A/P Assessment and Plan Patient low risk from cardiac standpoint to have egd/colonoscopy tomorrow. Restart cardizem drip if rate >100bpm Continue telemetry and lasix. Continue holding eliquis due to bleed. Will reassess once GI bleed has been identified/treated. Plan pending approval by Dr. Tong Quintana MS4 Emily Quintana M3 Nov 06, 2017 17:59
--- NOTE | 2017-11-06 19:50 | MB ---
cc: Tong Ruiz MD DATE OF CONSULT: 11/06/2017 REASON FOR CONSULTATION: Atrial fibrillation and angina. HISTORY OF PRESENT ILLNESS: Samson Fraga is a 77-year-old man followed by my partner, Dr. Lobato. The patient has known coronary artery disease. He underwent bypass surgery in 2012. His last cardiac catheterization was 10/26/2011. This showed occlusion of the 2 graft to the circumflex artery. He had a patent left internal mammary graft to the LAD and a patent vein graft to the diagonal. The right coronary artery had a patent vein graft. Circumflex artery was small and severely diseased. The patient describes chest tightness occurring on intermittent but stable basis, going on at least months. He had a nuclear stress test performed as recently as 08/07/2017. This showed a moderate infarction of the apical wall with an estimated EF of 40%. There was no ischemia demonstrated on this. the patient had new onset atrial fibrillation in July. He was initiated on Eliquis and because of his coronary disease also continued on aspirin. The patient comes in now with a GI bleed. He has had some progressive shortness of breath. He has had some progressive shortness of breath. His heart rate was in the 120s when he first came in and complaining of chest tightness, place on a Cardizem drip and his chest tightness has improved. His shortness of breath has improved some. He has been noticing dark colored stool for 2 days. PAST MEDICAL HISTORY: Includes atrial fibrillation, coronary disease, ischemic cardiomyopathy, claudication of the lower extremity, previous CHF, hyperlipidemia, hypertensive heart disease, obesity. PAST SURGICAL HISTORY: Includes bypass surgery. MEDICATIONS: Are charted. ALLERGIES: NONE. FAMILY HISTORY: Positive for bypass surgery in his brother. SOCIAL HISTORY: Notable for previous smoking. PHYSICAL EXAMINATION: GENERAL: Shows an obese, well developed white male. He is not in any acute distress at the time I am seeing him. TELEMETRY: Showing atrial fibrillation with a controlled rate. HEENT: Exam unremarkable. NECK: Shows no obvious JVD. There are no bruits. CHEST: Shows breath sounds that are clear. I do not appreciate any wheezing or rales. CARDIAC: S1 and S2, irregular rate and rhythm. I do not appreciate murmur or gallops. ABDOMEN: Soft. EXTREMITIES: Shows some venous insufficiency changes with trace edema. DIAGNOSTIC STUDIES: EKG this morning demonstrates atrial fibrillation with a controlled rate. There are no acute ST or T wave changes. EKG from yesterday showed atrial fibrillation with a heart rate of 124. The patient's chest x-ray yesterday shows mild vascular congestion, small effusions. His laboratories show hematocrit of 31.9. Creatinine is 1.49. Troponins are negative. INR is 1.2. Digoxin level is 1.3. The patient has received IV Lasix 40 IV b.i.d. since admission and has continued on p.o. diltiazem at 360, continued on Imdur 60 mg, lisinopril 5 mg, atorvastatin 40 mg. IMPRESSION: Suspected gastrointestinal bleeds, mild exacerbation of congestive heart failure, combination of diastolic and systolic that is chronic and some increased ventricular rate, now controlled with Cardizem drip. RECOMMENDATIONS: He has stabilized. I think he has increased risk but can be cleared for upper and lower endoscopy, which is very valuable in his management to determine the cause of his gastrointestinal bleed. He is off Eliquis and aspirin at the present time because of the bleed. His chest discomfort is somewhat worrisome but his troponins are negative and there are no acute ST or T-wave changes. There would be a mild component of congestive heart failure for which Lasix is being administered. I will be able to follow him tomorrow. Thank you for this consultation. MD FREDERICK Hadley/ROBIN , 07:20 PM , 07:49 PM
--- NOTE | 2017-11-06 22:02 | EKG ---
Date Performed: 11/06/2017 Time Performed: 06:31:36 PTAGE: 77 years EKG: Atrial fibrillation Indeterminate axis Generalized low QRS voltages Abnormal ECG PREVIOUS TRACING : 11/06/2017 05.53 Compared to prior tracing, RATE SLOWER DOCTOR: Ehsan Cherry Interpretating Date/Time 11/06/2017 22:00:44
--- NOTE | 2017-11-06 22:41 | EKG ---
Date Performed: 11/05/2017 Time Performed: 17:16:43 PTAGE: 77 years EKG: ATRIAL FIBRILLATION WITH RAPID VENTRICULAR RESPONSE INDETERMINATE AXIS ABNORMAL ECG PREVIOUS TRACING : 08/18/2017 01.56 Since the prior tracing, there has been no significant graves DOCTOR: Ehsan Cherry Interpretating Date/Time 11/06/2017 22:40:13
[2017-11-07] VITALS (25 sets, daily range): BP systolic 87–117; BP diastolic 50–76; PULSE 51–118; RESP 12–18; TEMP 97.6–97.9; O2SAT 92–97
[2017-11-07] MEDS: PANTOPRAZOLE INJ 80 MG in SODIUM CHLORIDE 0.9% INJ 100 ML IV SCH ×3 (04:43→21:21)
[2017-11-07 05:34] LABS: AUTOMATED NEUTROPHIL # 5.1 TH/MM3 (1.8-7.7); BASOPHIL # 0.1 TH/MM3 (0-0.2); EOSINOPHIL # 0.2 TH/MM3 (0-0.4); EOSINOPHIL % 3.4 % (0.0-4.0); HEMATOCRIT 31.9 % (39.0-51.0); HEMOGLOBIN 10.7 GM/DL (13.0-17.0); LYMPH % 11.4 % (9.0-44.0); LYMPHOCYTE # 0.8 TH/MM3 (1.0-4.8); MEAN CELL VOLUME 90.1 FL (80.0-100.0); MEAN CORPUSCULAR HEMOGLOBIN 30.3 PG (27.0-34.0); MEAN CORPUSCULAR HGB CONC 33.6 % (32.0-36.0); MONO % 6.6 % (0.0-8.0); MONOCYTE # 0.4 TH/MM3 (0-0.9); NEUT % 77.6 % (16.0-70.0); PLATELET COUNT 190 TH/MM3 (150-450); RED BLOOD COUNT 3.55 MIL/MM3 (4.50-5.90); RED CELL DISTRIBUTION WIDTH 16.2 % (11.6-17.2); WHITE BLOOD COUNT 6.6 TH/MM3 (4.0-11.0)
[2017-11-07 06:00] LABS: ALBUMIN 3.2 GM/DL (3.4-5.0); AST (GOT) 13 U/L (15-37); BICARBONATE 30.5 MEQ/L (21.0-32.0); BLOOD UREA NITROGEN 28 MG/DL (7-18); CALCIUM 8.4 MG/DL (8.5-10.1); CHLORIDE 104 MEQ/L (98-107); CREATININE 1.94 MG/DL (0.60-1.30); GLOMERULAR FILTRATION RATE 34 ML/MIN (>89); GLUCOSE,RANDOM 101 MG/DL (74-106); SODIUM (NA) 143 MEQ/L (136-145)
[2017-11-07 06:04] LABS: ALKALINE PHOSPHATASE 90 U/L (45-117); ALT (GPT) 14 U/L (12-78); TOTAL BILIRUBIN ADULT 1.6 MG/DL (0.2-1.0); TOTAL PROTEIN 6.6 GM/DL (6.4-8.2)
[2017-11-07] MEDS: ISOSORBIDE MONONITRATE 60 MG CR TAB (IMDUR) PO SCH (09:00)
[2017-11-07] MEDS: ATORVASTATIN 40 MG TAB PO SCH (11:28)
[2017-11-07] MEDS: FUROSEMIDE 40 MG/4 ML VIAL IV PUSH SCH (11:28)
[2017-11-07] MEDS: BUDESONIDE-FORMOTEROL 80/4.5 MCG INHALER INH SCH ×2 (11:28→21:48)
--- NOTE | 2017-11-07 11:28 | PD.PROCEDR ---
GI Procedure PROCEDURE PERFORMED Upper endoscopy with biopsy Colonoscopy with snare polypectomy, ablation of polyps INDICATION FOR PROCEDURE Anemia, possible GI bleed PROCEDURE: The procedure, risks and benefits were discussed with Mr. Fraga and informed consent was obtained. Anesthesia sedated him with Diprivan. He was placed in the left lateral decubitus position. EGD: The Pentax videoscope was introduced through the oropharynx and advanced to the second portion of the duodenum under direct visualization. Retroflexion was performed in the stomach. Biopsy from the antrum Colonoscopy: The Pentax videoscope was introduced through the rectum and advanced to cecum. Retroflexion was performed in the rectum. Colonic prep was there was significant amount of stool in the cecum may interfere with the vision of lesions, some stool throughout the colon may interfere with the vision of small lesion ESTIMATED BLOOD LOSS: None SPECIMENS REMOVED: Antrum Rectosigmoid polyps COMPLICATIONS: None IMPRESSION: Esophagus normal Stomach mild gastritis biopsy was done Duodenum normal Some stool throughout the colon may interfere with the vision of small lesion Multiple polyps in the rectum and sigmoid area removed by snare if more than 5 mm or ablated with heat if less than 5 mm No sign of active bleeding at this time PLAN: Monitor H&H Follow-up biopsy May feed patient Colonoscopy in 6 month If patient needs anticoagulation he should be closely monitor and on the lowest possible dose of anticoagulation Capsule endoscopy as an outpatient Ilya Brady MD Nov 07, 2017 11:28
[2017-11-07] MEDS: DILTIAZEM-CD 180 MG CAP ER PO SCH (11:29)
[2017-11-07] MEDS: LISINOPRIL 10 MG TAB PO SCH (11:29)
--- NOTE | 2017-11-07 11:29 | HHI.GIFU ---
Subjective Remarks Patient laying in bed, seems to be comfortable, tolerated prep for upper endoscopy and colonoscopy, no sign of active bleeding Objective Vitals I&O Vital Signs Date Time Temp Pulse Resp B/P (MAP) Pulse Ox O2 Delivery O2 Flow Rate FiO2 11/07/17 07:26 108 11/07/17 07:25 97.7 113 12 96/73 (81) 93 11/07/17 07:15 93 Room Air 11/07/17 07:15 118 11/07/17 06:00 104 11/07/17 05:02 109 11/07/17 04:00 100 11/07/17 04:00 97.9 78 18 117/76 (90) 97 11/07/17 04:00 97 Room Air 11/07/17 03:00 99 11/07/17 02:00 104 11/07/17 01:00 89 11/07/17 00:00 97 Room Air 11/07/17 00:00 97.9 78 18 117/64 (81) 97 11/07/17 00:00 78 11/06/17 23:00 72 11/06/17 22:00 66 11/06/17 21:00 62 11/06/17 20:11 98 Nasal Cannula 2.00 11/06/17 20:00 100 Room Air 11/06/17 20:00 60 11/06/17 20:00 97.5 62 20 90/51 (64) 100 11/06/17 19:00 58 11/06/17 18:00 65 11/06/17 17:00 66 11/06/17 16:00 52 11/06/17 15:00 100 Nasal Cannula 2.00 11/06/17 15:00 97.2 59 18 100/54 (69) 100 11/06/17 15:00 69 11/06/17 14:00 59 11/06/17 13:00 71 11/06/17 12:13 71 11/06/17 12:00 77 I/O 11/06/17 11/06/17 11/06/17 11/07/17 11/07/17 11/07/17 07:00 15:00 23:00 07:00 15:00 23:00 Intake Total 460 ml 170 ml 112 ml 240 ml 350 ml Output Total 420 ml 350 ml 625 ml Balance 40 ml 170 ml -238 ml -385 ml 350 ml Intake Oral 460 ml 240 ml IV Total 170 ml 112 ml Other 350 ml Output Urine Total 420 ml 350 ml 625 ml # Voids 2 # Bowel Movements 0 1 4 Laboratory Laboratory Tests Test 11/07/17 04:02 White Blood Count 6.6 Red Blood Count 3.55 Hemoglobin 10.7 Hematocrit 31.9 Mean Corpuscular Volume 90.1 Mean Corpuscular Hemoglobin 30.3 Mean Corpuscular Hemoglobin Concent 33.6 Red Cell Distribution Width 16.2 Platelet Count 190 Mean Platelet Volume 8.0 Neutrophils (%) (Auto) 77.6 Lymphocytes (%) (Auto) 11.4 Monocytes (%) (Auto) 6.6 Eosinophils (%) (Auto) 3.4 Basophils (%) (Auto) 1.0 Neutrophils # (Auto) 5.1 Lymphocytes # (Auto) 0.8 Monocytes # (Auto) 0.4 Eosinophils # (Auto) 0.2 Basophils # (Auto) 0.1 CBC Comment DIFF FINAL Differential Comment Blood Urea Nitrogen 28 Creatinine 1.94 Random Glucose 101 Total Protein 6.6 Albumin 3.2 Calcium Level 8.4 Alkaline Phosphatase 90 Aspartate Amino Transf (AST/SGOT) 13 Alanine Aminotransferase (ALT/SGPT) 14 Total Bilirubin 1.6 Sodium Level 143 Potassium Level 4.1 Chloride Level 104 Carbon Dioxide Level 30.5 Anion Gap 9 Estimat Glomerular Filtration Rate 34 Physical Exam HEENT: Pupils round and reactive to light; normocephalic; atraumatic; no jaundice. Throat is clear. NECK: Neck is supple, no JVD, no lymphadenopathy. CHEST: Chest is clear to auscultation and percussion. CARDIAC: Regular rate and rhythm with no murmur gallop or rubs. ABDOMEN: Soft, nondistended, nontender; no hepatosplenomegaly; bowel sounds are present in all four quadrants. Obese EXTREMITIES: No clubbing, cyanosis, or edema. SKIN: Normal; no rash; no jaundice. DIRECTOR OF DESIGN: No focal deficits; alert and oriented times three. Assessment and Plan Plan Patient was seen and examined, patient has GI bleed, upper endoscopy and colonoscopy was done today, hemoglobin stable IMPRESSION: Esophagus normal Stomach mild gastritis biopsy was done Duodenum normal Some stool throughout the colon may interfere with the vision of small lesion Multiple polyps in the rectum and sigmoid area removed by snare if more than 5 mm or ablated with heat if less than 5 mm No sign of active bleeding at this time PLAN: Monitor H&H Follow-up biopsy May feed patient Colonoscopy in 6 month If patient needs anticoagulation he should be closely monitor and on the lowest possible dose of anticoagulation Capsule endoscopy as an outpatient Ilya Brady MD Nov 07, 2017 11:29
[2017-11-07] MEDS: SODIUM CHLORIDE 0.9% FLUSH 10 ML FLUSH IV FLUSH SCH ×2 (11:32→21:48)
[2017-11-07] MEDS ORDERED: LIDOCAINE HCL 1% PF 5 ML SYRINGE OTHER ONE (12:00)
[2017-11-07] MEDS ORDERED: PROPOFOL 200 MG/20 ML AMP IV ONE (12:00)
[2017-11-07] MEDS ORDERED: PHENYLEPH/NS 1000 MCG/10 ML SYR IV ONE (12:00)
--- NOTE | 2017-11-07 15:44 | HHI.PR ---
Subjective Remarks Patient says he is feeling all right, however or shortness of breath continues. Denies any chest pain. Denies any nausea or vomiting. Objective Vital Signs Date Time Temp Pulse Resp B/P (MAP) Pulse Ox O2 Delivery O2 Flow Rate FiO2 11/07/17 15:00 95 Room Air 11/07/17 15:00 69 11/07/17 15:00 79 16 87/50 (62) 95 11/07/17 14:40 93 21 11/07/17 14:00 99 11/07/17 13:00 105 11/07/17 12:16 104 11/07/17 12:00 113 11/07/17 11:30 92 Room Air 11/07/17 11:30 97.6 113 16 105/67 (80) 92 11/07/17 11:30 111 11/07/17 07:26 108 11/07/17 07:25 97.7 113 12 96/73 (81) 93 11/07/17 07:15 93 Room Air 11/07/17 07:15 118 11/07/17 06:00 104 11/07/17 05:02 109 11/07/17 04:00 100 11/07/17 04:00 97.9 78 18 117/76 (90) 97 11/07/17 04:00 97 Room Air 11/07/17 03:00 99 11/07/17 02:00 104 11/07/17 01:00 89 11/07/17 00:00 97 Room Air 11/07/17 00:00 97.9 78 18 117/64 (81) 97 11/07/17 00:00 78 11/06/17 23:00 72 11/06/17 22:00 66 11/06/17 21:00 62 11/06/17 20:11 98 Nasal Cannula 2.00 11/06/17 20:00 100 Room Air 11/06/17 20:00 60 11/06/17 20:00 97.5 62 20 90/51 (64) 100 11/06/17 19:00 58 11/06/17 18:00 65 11/06/17 17:00 66 11/06/17 16:00 52 I/O 11/06/17 11/06/17 11/06/17 11/07/17 11/07/17 11/07/17 07:00 15:00 23:00 07:00 15:00 23:00 Intake Total 460 ml 170 ml 112 ml 240 ml 350 ml Output Total 420 ml 350 ml 625 ml Balance 40 ml 170 ml -238 ml -385 ml 350 ml Intake Oral 460 ml 240 ml IV Total 170 ml 112 ml Other 350 ml Output Urine Total 420 ml 350 ml 625 ml # Voids 2 # Bowel Movements 0 1 4 Result Diagram: 11/07/1740111/07/17401 Objective Remarks GENERAL: Patient sitting up in chair. Appears comfortable. SKIN: Warm and dry. HEAD: Normocephalic. EYES: No scleral icterus. No injection or drainage. NECK: Supple, trachea midline. No JVD. CARDIOVASCULAR: Regular rate and rhythm without murmurs, gallops, or rubs. RESPIRATORY: Breath sounds equal bilaterally. No accessory muscle use. GASTROINTESTINAL: Abdomen soft, non-tender, nondistended. MUSCULOSKELETAL: No cyanosis. Trace peripheral edema. BACK: Nontender without obvious deformity. No CVA tenderness. A/P Assessment and Plan 77-year-old male admitted secondary to A. fib RVR with GI bleed. Negative ACS workup, patient is out of A. fib RVR. Back to baseline atrial fibrillation. //Atrial fibrillation with RVR Chest pain/shortness of breath/CHF exacerbation RVR has resolved Diltiazem drip has been weaned No signs of recurrence of RVR Continue home medications Cardiology consulted for clearance for EGD Negative ACS workup = Continue medications as per cardiology. Appreciate assistance. //GI bleed Follow CBC Protonix drip Holding home [facility] Gastroenterology following Medically cleared for procedure = Appreciate GI assistance. No signs of bleeding on EGD/colonoscopy. Appreciate assistance. //Hypertension Continue baseline treatment Follow blood pressures Adjust treatments as needed = 11/07. Hypotensive. Discontinue Lasix. Continue to monitor. Hyperlipidemia Continue present treatment Follow as an outpatient //Acute kidney injury on chronic kidney disease stage III -Creatinine 1.9. Worsen. Order post void residual bladder scan. If elevated, will Place Early. Consult nephrology. Discontinue Lasix. Hold LISSET inhibitor. DVT prophylaxis SCDs Discharge Planning Likely discharge tomorrow if cleared by cardiology, nephrology. Mango Marquez MD Nov 07, 2017 15:44
--- NOTE | 2017-11-07 20:21 | PD.CONS ---
HPI Service Nephrology Consult Requested By Dr. Marquez Reason for Consult Renal insufficiency Primary Care Physician López Turner MD History of Present Illness Patient is a 77-year-old male with history of coronary artery disease status post 5 vessel CABG in 2013, atrial fibrillation, hypertension who presented with increasing shortness of breath and peripheral edema patient did receive diuretics and the creatinine went up from 1.3-1.9, he states he has no knowledge of kidney problems or kidney stones or benign prostate enlargement. He underwent endoscopy and colonoscopy, this was due to history of black stools Review of Systems Constitutional: COMPLAINS OF: Fatigue Respiratory: COMPLAINS OF: Shortness of breath Cardiovascular: COMPLAINS OF: Dyspnea on Exertion, Lower Extremity Edema Psychiatric: COMPLAINS OF: Anxiety Past Family Social History Allergies: Coded Allergies: No Known Allergies (Verified , 06/25/10) Past Medical History Coronary artery disease Hypertension Atrial fibrillation obesity Hyperlipidemia Past Surgical History CABG 5 vessel in 2012 Reported Medications Reported Meds & Active Scripts Active [Albuterol-Ipratropium Neb] 1 AMPULE Nebu 1 Ampule NEB Q6HR NEB PRN 30 Days Reported Ferrous Sulfate 325 Mg (65 Mg Iron) Tablet 325 Mg PO DAILY Diltiazem CD 24 HR 360 Mg Capcr 360 Mg PO DAILY Eliquis (Apixaban) 5 Mg Tab 5 Mg PO BID Vitamin B-12 (Cyanocobalamin) 1,000 Mcg Tab 1,000 Mcg PO DAILY Furosemide 40 Mg Tab 40 Mg PO DAILY Vitamin D-1000 (Cholecalciferol) 1,000 Unit Tab 2,000 Units PO DAILY Lisinopril 10 Mg Tab 25 Mg PO DAILY Crestor (Rosuvastatin Calcium) 20 Mg Tab 20 Mg PO DAILY Isosorbide Mononitrate 20 Mg Tab 60 Mg PO DAILY Take 2 doses 7 hours apart. Symbicort Inh (Budesonide/Formoterol Fumarate) 80-4.5 Mcg/Act Aero 2 Puff INH Q12HR Aspirin 81 Mg Chew 81 Mg CHEW DAILY Active Ordered Medications Current Medications Medications (Trade) Dose Ordered Sig/Melody Route Start Time Stop Time Status Last Admin Pantoprazole Sodium 80 mg/ Sodium Chloride 100 ml @ 10 mls/hr Q10H IV 11/05/17 19:21 11/07/17 17:40 (NS Flush) 2 ml UNSCH PRN IV FLUSH 11/05/17 18:45 11/07/17 07:50 (NS Flush) 2 ml BID IV FLUSH 11/05/17 21:00 11/07/17 11:32 (Narcan Inj) 0.4 mg UNSCH PRN IV PUSH 11/05/17 18:45 (Symbicort 80-4.5 Mcg Inh) 2 puff Q12HR INH 11/05/17 21:00 11/07/17 11:28 (Cardizem Cd) 360 mg DAILY PO 11/06/17 09:00 11/07/17 11:29 (Imdur) 60 mg DAILY PO 11/06/17 09:00 11/06/17 09:05 (Prinivil) 5 mg DAILY PO 11/06/17 09:00 Future Hold 11/07/17 11:29 (Lipitor) 40 mg DAILY PO 11/06/17 09:00 11/07/17 11:28 (Pill Splitter) 1 ea UNSCH PRN OTHER 11/05/17 22:15 Family History Noncontributory Social History History of smoking in the past, drinks a few beers occasionally Physical Exam Vital Signs Vital Signs Date Time Temp Pulse Resp B/P (MAP) Pulse Ox O2 Delivery O2 Flow Rate FiO2 11/07/17 18:00 54 11/07/17 17:00 60 11/07/17 16:00 57 11/07/17 15:00 95 Room Air 11/07/17 15:00 69 11/07/17 15:00 79 16 87/50 (62) 95 11/07/17 14:40 93 21 11/07/17 14:00 99 11/07/17 13:00 105 11/07/17 12:16 104 11/07/17 12:00 113 11/07/17 11:30 92 Room Air 11/07/17 11:30 97.6 113 16 105/67 (80) 92 11/07/17 11:30 111 11/07/17 07:26 108 11/07/17 07:25 97.7 113 12 96/73 (81) 93 11/07/17 07:15 93 Room Air 11/07/17 07:15 118 11/07/17 06:00 104 11/07/17 05:02 109 11/07/17 04:00 100 11/07/17 04:00 97.9 78 18 117/76 (90) 97 11/07/17 04:00 97 Room Air 11/07/17 03:00 99 11/07/17 02:00 104 11/07/17 01:00 89 11/07/17 00:00 97 Room Air 11/07/17 00:00 97.9 78 18 117/64 (81) 97 11/07/17 00:00 78 11/06/17 23:00 72 11/06/17 22:00 66 11/06/17 21:00 62 Physical Exam GENERAL: Well-nourished, well-developed patient. SKIN: Warm and dry. HEAD: Normocephalic. EYES: No scleral icterus. No injection or drainage. NECK: Supple, trachea midline. No JVD or lymphadenopathy. CARDIOVASCULAR: S1-S2 distant heart sounds RESPIRATORY: Breath sounds equal bilaterally. No accessory muscle use. GASTROINTESTINAL: Abdomen soft, non-tender, nondistended. EXTREMITIES: No cyanosis, 1+ edema. NEUROLOGICAL: Awake, alert, and oriented x 3. Non-focal. Laboratory Laboratory Tests Test 11/07/17 04:02 White Blood Count 6.6 Red Blood Count 3.55 Hemoglobin 10.7 Hematocrit 31.9 Mean Corpuscular Volume 90.1 Mean Corpuscular Hemoglobin 30.3 Mean Corpuscular Hemoglobin Concent 33.6 Red Cell Distribution Width 16.2 Platelet Count 190 Mean Platelet Volume 8.0 Neutrophils (%) (Auto) 77.6 Lymphocytes (%) (Auto) 11.4 Monocytes (%) (Auto) 6.6 Eosinophils (%) (Auto) 3.4 Basophils (%) (Auto) 1.0 Neutrophils # (Auto) 5.1 Lymphocytes # (Auto) 0.8 Monocytes # (Auto) 0.4 Eosinophils # (Auto) 0.2 Basophils # (Auto) 0.1 CBC Comment DIFF FINAL Differential Comment Blood Urea Nitrogen 28 Creatinine 1.94 Random Glucose 101 Total Protein 6.6 Albumin 3.2 Calcium Level 8.4 Alkaline Phosphatase 90 Aspartate Amino Transf (AST/SGOT) 13 Alanine Aminotransferase (ALT/SGPT) 14 Total Bilirubin 1.6 Sodium Level 143 Potassium Level 4.1 Chloride Level 104 Carbon Dioxide Level 30.5 Anion Gap 9 Estimat Glomerular Filtration Rate 34 B-Type Natriuretic Peptide 201 Result Diagram: 11/07/172 11/07/17401 Imaging Last Impressions Abdomen/Pelvis CT 11/06/17 0000 Signed Impressions: Service Date/Time: Monday, November 06, 2017 16:11 - CONCLUSION: No evidence of acute abdominal or pelvic process. No masses are identified. Small bilateral effusions and right basilar atelectasis Marcos Mathis MD Chest X-Ray 11/05/17 1655 Signed Impressions: Service Date/Time: Sunday, November 05, 2017 17:08 - CONCLUSION: Mild parenchymal edema and small effusions. Arnel Subramanian MD Assessment and Plan Problem List: (1) Acute renal failure ICD Codes: N17.9 - Acute kidney failure, unspecified Plan: Patient appears to have over diuresed agree with stopping Lasix hydrating him orally Follow BMP Avoid nephrotoxin Get baseline kidney ultrasound (2) COPD with exacerbation ICD Codes: J44.1 - Chronic obstructive pulmonary disease with (acute) exacerbation Plan: Patient appears to have COPD EF is 55-60% (3) Atrial fibrillation with RVR ICD Codes: I48.91 - Unspecified atrial fibrillation Plan: Heart rate is under control now (4) GI bleed ICD Codes: K92.2 - Gastrointestinal hemorrhage, unspecified Status: Acute Plan: Post endoscopy and colonoscopy few diverticula seen Problem Qualifiers (1) GI bleed: Qualified Codes: K92.2 - Gastrointestinal hemorrhage, unspecified Neno Carlson MD Nov 07, 2017 20:21
[2017-11-08] VITALS (28 sets, daily range): BP systolic 84–135; BP diastolic 53–90; PULSE 62–117; RESP 18–20; TEMP 97.4–97.9; O2SAT 92–99
[2017-11-08 04:55] LABS: AUTOMATED NEUTROPHIL # 5.3 TH/MM3 (1.8-7.7); BASOPHIL % 0.5 % (0.0-2.0); EOSINOPHIL # 0.1 TH/MM3 (0-0.4); EOSINOPHIL % 2.2 % (0.0-4.0); HEMATOCRIT 31.6 % (39.0-51.0); HEMOGLOBIN 10.5 GM/DL (13.0-17.0); LYMPH % 11.1 % (9.0-44.0); LYMPHOCYTE # 0.7 TH/MM3 (1.0-4.8); MEAN CELL VOLUME 90.5 FL (80.0-100.0); MEAN CORPUSCULAR HGB CONC 33.1 % (32.0-36.0); MEAN PLATELET VOLUME 7.9 FL (7.0-11.0); MONO % 5.8 % (0.0-8.0); MONOCYTE # 0.4 TH/MM3 (0-0.9); NEUT % 80.4 % (16.0-70.0); PLATELET COUNT 183 TH/MM3 (150-450); RED CELL DISTRIBUTION WIDTH 16.1 % (11.6-17.2); WHITE BLOOD COUNT 6.5 TH/MM3 (4.0-11.0)
[2017-11-08] MEDS: PANTOPRAZOLE INJ 80 MG in SODIUM CHLORIDE 0.9% INJ 100 ML IV SCH (05:02)
[2017-11-08 05:06] LABS: BILIRUBIN, URINE NEG (NEG); BLOOD, URINE NEG (NEG); CALCIUM OXALATE CRYSTALS,URINE OCC /hpf; CREATININE, RANDOM URINE 218.6 MG/DL; GLUCOSE,URINE NEG (NEG); HYALINE CAST, URINE 138 /lpf (RARE); KETONE, URINE NEG (NEG); MUCUS URINE FEW /lpf (OCC); NITRITE,URINE NEG (NEG); SQUAMOUS EPITHELIAL CELL URINE 1 /hpf (0-5); URINE COLOR YELLOW (YELLW/STRAW); URINE LEUKOCYTE ESTERASE NEG (NEG)
[2017-11-08 05:19] LABS: ALBUMIN 3.1 GM/DL (3.4-5.0); BICARBONATE 29.9 MEQ/L (21.0-32.0); CALCIUM 8.1 MG/DL (8.5-10.1); CREATININE 2.19 MG/DL (0.60-1.30); MAGNESIUM 2.1 MG/DL (1.5-2.5); PHOSPHORUS 4.9 MG/DL (2.5-4.9)
[2017-11-08] MEDS: SODIUM CHLORIDE 0.9% FLUSH 10 ML FLUSH IV FLUSH SCH ×2 (09:00→21:00)
[2017-11-08] MEDS: BUDESONIDE-FORMOTEROL 80/4.5 MCG INHALER INH SCH ×2 (09:48→21:24)
[2017-11-08] MEDS: DILTIAZEM-CD 180 MG CAP ER PO SCH (09:48)
[2017-11-08] MEDS: ISOSORBIDE MONONITRATE 60 MG CR TAB (IMDUR) PO SCH (09:49)
[2017-11-08] MEDS: ATORVASTATIN 40 MG TAB PO SCH (09:49)
--- NOTE | 2017-11-08 10:04 | RADRPT ---
EXAM DATE/TIME: 11/08/2017 09:21 [facility] COMPARISON: No previous studies available for comparison. INDICATIONS : Elevated BUN and Creatinine. MEDICAL HISTORY : Hypercholesterolemia. Emphysema. AFIB RVR. COPD. CKD. SURGICAL HISTORY : CABG. ENCOUNTER: Initial ACUITY: 2 days PAIN SCORE: 0/10 LOCATION: Bilateral flank MEASUREMENTS: RIGHT KIDNEY: 11.9 x 6.6 x 6.0 cm LEFT KIDNEY: 11.0 x 4.7 x 5.4 cm FINDINGS: RIGHT KIDNEY: Renal cortex is normal in thickness and echotexture. No hydronephrosis, stone, or mass except for 3. 0 x 2.9 cm cyst lower pole right kidney. LEFT KIDNEY: Renal cortex is normal in thickness and echotexture. No hydronephrosis, stone, or mass except for 2 small cortical cyst mid pole left kidney. BLADDER: Within normal limits given the degree of distension. CONCLUSION: Benign cysts bilaterally. No concerning stone or hydronephrosis seen. Keven Freeman MD on November 08, 2017 at 10:02 Board Certified Radiologist. This report was verified electronically.
--- NOTE | 2017-11-08 10:28 | HHI.PR ---
Subjective Remarks The patient was having a kidney ultrasound performed. He said that he had some shortness of breath. Otherwise he had no acute complaints. Discussed with nursing. Objective Vitals Vital Signs Date Time Temp Pulse Resp B/P (MAP) Pulse Ox O2 Delivery O2 Flow Rate FiO2 11/08/17 10:00 117 11/08/17 09:21 92 21 11/08/17 09:00 115 11/08/17 08:00 103 11/08/17 07:15 89 11/08/17 07:15 97.8 108 19 134/90 (105) 93 11/08/17 07:15 93 Room Air 11/08/17 06:16 99 11/08/17 05:24 77 11/08/17 04:20 97.8 87 18 134/60 (84) 99 11/08/17 04:20 99 Room Air 11/08/17 04:17 90 11/08/17 03:06 75 11/08/17 02:05 72 11/08/17 01:01 74 11/08/17 00:45 63 11/08/17 00:44 97.4 67 19 84/53 (63) 97 11/07/17 23:17 97 Nasal Cannula 2.00 11/07/17 23:05 63 11/07/17 23:05 Nasal Cannula 2.00 96 11/07/17 22:48 56 11/07/17 21:00 56 11/07/17 20:23 51 11/07/17 20:23 Nasal Cannula 1.00 97 11/07/17 20:23 97.8 57 18 94/55 (68) 97 11/07/17 18:00 54 11/07/17 17:00 60 11/07/17 16:00 57 11/07/17 15:00 95 Room Air 11/07/17 15:00 69 11/07/17 15:00 79 16 87/50 (62) 95 11/07/17 14:40 93 21 11/07/17 14:00 99 11/07/17 13:00 105 11/07/17 12:16 104 11/07/17 12:00 113 11/07/17 11:30 92 Room Air 11/07/17 11:30 97.6 113 16 105/67 (80) 92 11/07/17 11:30 111 I/O 11/07/17 11/07/17 11/07/17 11/08/17 11/08/17 11/08/17 07:00 15:00 23:00 07:00 15:00 23:00 Intake Total 240 ml 350 ml 820 ml 598 ml 155 ml Output Total 625 ml 1175 ml 300 ml Balance -385 ml 350 ml -355 ml 298 ml 155 ml Intake Oral 240 ml 720 ml 598 ml IV Total 100 ml 155 ml Other 350 ml Output Urine Total 625 ml 1175 ml 300 ml # Bowel Movements 4 Result Diagram: 11/08/17 0420 11/08/17 0420 Imaging Last Impressions Renal Ultrasound 11/08/17 0000 Signed Impressions: Service Date/Time: November 09:21 - CONCLUSION: Benign cysts bilaterally. No concerning stone or hydronephrosis seen. Keven Freeman MD Abdomen/Pelvis CT 11/06/17 0000 Signed Impressions: Service Date/Time: Monday, November 06, 2017 16:11 - CONCLUSION: No evidence of acute abdominal or pelvic process. No masses are identified. Small bilateral effusions and right basilar atelectasis Marcos Mathis MD Chest X-Ray 11/05/17 1655 Signed Impressions: Service Date/Time: Sunday, November 05, 2017 17:08 - CONCLUSION: Mild parenchymal edema and small effusions. Arnel Subraamnian MD Objective Remarks GENERAL: NAD. SKIN: Warm and dry. HEAD: Normocephalic. EYES: No scleral icterus. No injection or drainage. NECK: Supple, trachea midline. No JVD. CARDIOVASCULAR: Tachycardic without murmurs, gallops or rubs. RESPIRATORY: Breath sounds equal bilaterally. No accessory muscle use. GASTROINTESTINAL: Abdomen soft, non-tender, nondistended. MUSCULOSKELETAL: No cyanosis. Trace peripheral edema. BACK: Nontender without obvious deformity. No CVA tenderness. NEURO: No gross deficits. Medications and IVs Current Medications Medications (Trade) Dose Ordered Sig/Melody Route Start Time Stop Time Status Last Admin (NS Flush) 2 ml UNSCH PRN IV FLUSH 11/05/17 18:45 11/07/17 07:50 (NS Flush) 2 ml BID IV FLUSH 11/05/17 21:00 11/08/17 09:00 (Narcan Inj) 0.4 mg UNSCH PRN IV PUSH 11/05/17 18:45 (Symbicort 80-4.5 Mcg Inh) 2 puff Q12HR INH 11/05/17 21:00 11/08/17 09:48 (Cardizem Cd) 360 mg DAILY PO 11/06/17 09:00 11/08/17 09:48 (Imdur) 60 mg DAILY PO 11/06/17 09:00 11/08/17 09:49 (Prinivil) 5 mg DAILY PO 11/06/17 09:00 Future Hold 11/07/17 11:29 (Lipitor) 40 mg DAILY PO 11/06/17 09:00 11/08/17 09:49 (Pill Splitter) 1 ea UNSCH PRN OTHER 11/05/17 22:15 (Protonix) 40 mg Q12HR PO 11/08/17 21:00 UNV (Proair Hfa Inh) 2 puff Q4H PRN INH 11/08/17 10:30 UNV A/P Assessment and Plan Atrial fibrillation with RVR/ CHF exacerbation The pt presented with chest pain/shortness of breath. RVR has resolved. Diltiazem drip has been weaned. Negative ACS workup. Cardiology consult appreciated. - Continue cardiac regimen. - Cardiology following. - telemetry. - d/c Lasix. - resume anticoagulation if OK with cardiology. GI bleed S/p Protonix drip. GI consult appreciated. No signs of bleeding on EGD/ colonoscopy. - Holding home Eliquis. - continue PO PPI BID. Dyspnea Likely related to CHF. - diuresis on hold. - continue inhalers. - wean oxygen. - IS. - encourage ambulation. - repeat CXR. Hypertension Well controlled. - Continue current regimen. Acute kidney injury On chronic kidney disease stage III. Nephrology consult appreciated. Renal US unremarkable. - Discontinue Lasix. Hold LISSET inhibitor. - follow up with nephrology. DVT prophylaxis: Bean Mckenzie DO Nov 08, 2017 10:28
[2017-11-08] MEDS ORDERED: ALBUTEROL SULFATE 90 MCG/ACT HFA 8 GM INHALER INH PRN (10:30)
--- NOTE | 2017-11-08 13:57 | HHI.GIFU ---
Subjective Remarks Pt resting in bed, at bedside. No further bleeding. Eager to go home (Milka Prakash) Objective Vitals I&O Vital Signs Date Time Temp Pulse Resp B/P (MAP) Pulse Ox O2 Delivery O2 Flow Rate FiO2 11/08/17 13:00 75 11/08/17 12:00 88 11/08/17 11:00 99 11/08/17 11:00 97.9 105 20 135/74 (94) 93 11/08/17 11:00 93 Room Air 11/08/17 10:00 117 11/08/17 09:21 92 21 11/08/17 09:00 115 11/08/17 08:00 103 11/08/17 07:15 89 11/08/17 07:15 97.8 108 19 134/90 (105) 93 11/08/17 07:15 93 Room Air 11/08/17 06:16 99 11/08/17 05:24 77 11/08/17 04:20 97.8 87 18 134/60 (84) 99 11/08/17 04:20 99 Room Air 11/08/17 04:17 90 11/08/17 03:06 75 11/08/17 02:05 72 11/08/17 01:01 74 11/08/17 00:45 63 11/08/17 00:44 97.4 67 19 84/53 (63) 97 11/07/17 23:17 97 Nasal Cannula 2.00 11/07/17 23:05 63 11/07/17 23:05 Nasal Cannula 2.00 96 11/07/17 22:48 56 11/07/17 21:00 56 11/07/17 20:23 51 11/07/17 20:23 Nasal Cannula 1.00 97 11/07/17 20:23 97.8 57 18 94/55 (68) 97 11/07/17 18:00 54 11/07/17 17:00 60 11/07/17 16:00 57 11/07/17 15:00 95 Room Air 11/07/17 15:00 69 11/07/17 15:00 79 16 87/50 (62) 95 11/07/17 14:40 93 21 11/07/17 14:00 99 I/O 2/28/18 2/11/07/17 11/08/17 11/08/17 11/08/17 07:00 15:00 23:00 07:00 15:00 23:00 Intake Total 240 ml 350 ml 820 ml 598 ml 155 ml Output Total 625 ml 1175 ml 300 ml Balance -385 ml 350 ml -355 ml 298 ml 155 ml Intake Oral 240 ml 720 ml 598 ml IV Total 100 ml 155 ml Other 350 ml Output Urine Total 625 ml 1175 ml 300 ml # Bowel Movements 4 Laboratory Laboratory Tests Test 11/08/17 04:20 11/08/17 04:38 White Blood Count 6.5 Red Blood Count 3.50 Hemoglobin 10.5 Hematocrit 31.6 Mean Corpuscular Volume 90.5 Mean Corpuscular Hemoglobin 30.0 Mean Corpuscular Hemoglobin Concent 33.1 Red Cell Distribution Width 16.1 Platelet Count 183 Mean Platelet Volume 7.9 Neutrophils (%) (Auto) 80.4 Lymphocytes (%) (Auto) 11.1 Monocytes (%) (Auto) 5.8 Eosinophils (%) (Auto) 2.2 Basophils (%) (Auto) 0.5 Neutrophils # (Auto) 5.3 Lymphocytes # (Auto) 0.7 Monocytes # (Auto) 0.4 Eosinophils # (Auto) 0.1 Basophils # (Auto) 0.0 CBC Comment DIFF FINAL Differential Comment Blood Urea Nitrogen 34 Creatinine 2.19 Random Glucose 100 Albumin 3.1 Calcium Level 8.1 Phosphorus Level 4.9 Magnesium Level 2.1 Sodium Level 143 Potassium Level 3.9 Chloride Level 105 Carbon Dioxide Level 29.9 Anion Gap 8 Estimat Glomerular Filtration Rate 29 Urine Color YELLOW Urine Turbidity HAZY Urine pH 5.0 Urine Specific [place] 1.017 Urine Protein TRACE Urine Glucose (UA) NEG Urine Ketones NEG Urine Occult Blood NEG Urine Nitrite NEG Urine Bilirubin NEG Urine Urobilinogen LESS THAN 2.0 Urine Leukocyte Esterase NEG Urine RBC 2 Urine WBC 2 Urine Squamous Epithelial Cells 1 Urine Calcium Oxalate Crystals OCC Urine Hyaline Casts 138 Urine Granular Casts 6 Urine Mucus FEW Microscopic Urinalysis Comment CULT NOT INDICATED Urine Random Creatinine 218.6 Urine Random Sodium 49 Imaging Last Impressions Renal Ultrasound 11/08/17 0000 Signed Impressions: Service Date/Time: November 09:21 - CONCLUSION: Benign cysts bilaterally. No concerning stone or hydronephrosis seen. Keven Freeman MD Abdomen/Pelvis CT 11/06/17 0000 Signed Impressions: Service Date/Time: Monday, November 06, 2017 16:11 - CONCLUSION: No evidence of acute abdominal or pelvic process. No masses are identified. Small bilateral effusions and right basilar atelectasis Marcos Mathis MD Chest X-Ray 11/05/17 1655 Signed Impressions: Service Date/Time: Sunday, November 05, 2017 17:08 - CONCLUSION: Mild parenchymal edema and small effusions. Arnel Subramanian MD Physical Exam HEENT: PERRL normocephalic; atraumatic; no jaundice. CHEST: CTA CARDIAC: RRR ABDOMEN: Soft, protuberant, nontender; no hepatosplenomegaly; bowel sounds are present in all four quadrants. Obese EXTREMITIES: No clubbing, cyanosis, or edema. SKIN: Normal; no rash; no jaundice. 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 (Milka Prakash) Assessment and Plan Plan 11/07/17Patient was seen and examined, patient has GI bleed, upper endoscopy and colonoscopy was done today, hemoglobin stable IMPRESSION: Esophagus normal Stomach mild gastritis biopsy was done Duodenum normal Some stool throughout the colon may interfere with the vision of small lesion Multiple polyps in the rectum and sigmoid area removed by snare if more than 5 mm or ablated with heat if less than 5 mm No sign of active bleeding at this time 11/08/17 no further bleeding. HH stable. tolerating diet. PLAN: Monitor H&H Follow-up biopsy capsule endoscopy outpt Colonoscopy in 6 month If patient needs anticoagulation he should be closely monitor and on the lowest possible dose of anticoagulation f/u with GI after d/c ok to d/c from GI standpoint pt seen by myself and Dr Brady and this note is on his behalf (Milka Prakash) Plan Patient was seen and examined, agree with above-noted, patient is doing okay, hemoglobin stable, he can go home and have capsule endoscopy as an outpatient on GI standpoint, we'll follow up as needed (Ilya Brady MD) Milka Prakash Nov 08, 2017 13:57 Ilya Brady MD Nov 08, 2017 17:40
--- NOTE | 2017-11-08 16:29 | HHI.NPPN ---
Subjective History of Present Illness pt with ARF/Afib/dark stools Review of Systems General Constitutional: Fatigue Objective Data Data 11/08/17 11/09/17 19:00 07:00 Intake Total 155 ml Balance 155 ml IV Total 155 ml Vital Signs Date Time Temp Pulse Resp B/P (MAP) Pulse Ox O2 Delivery O2 Flow Rate FiO2 11/08/17 16:00 67 11/08/17 15:00 65 11/08/17 15:00 95 Room Air 11/08/17 15:00 97.9 71 19 94/55 (68) 95 11/08/17 14:00 69 11/08/17 13:00 75 11/08/17 12:00 88 11/08/17 11:00 99 11/08/17 11:00 97.9 105 20 135/74 (94) 93 11/08/17 11:00 93 Room Air 11/08/17 10:00 117 11/08/17 09:21 92 21 11/08/17 09:00 115 11/08/17 08:00 103 11/08/17 07:15 89 11/08/17 07:15 97.8 108 19 134/90 (105) 93 11/08/17 07:15 93 Room Air 11/08/17 06:16 99 11/08/17 05:24 77 11/08/17 04:20 97.8 87 18 134/60 (84) 99 11/08/17 04:20 99 Room Air 11/08/17 04:17 90 11/08/17 03:06 75 11/08/17 02:05 72 11/08/17 01:01 74 11/08/17 00:45 63 11/08/17 00:44 97.4 67 19 84/53 (63) 97 11/07/17 23:17 97 Nasal Cannula 2.00 11/07/17 23:05 63 11/07/17 23:05 Nasal Cannula 2.00 96 11/07/17 22:48 56 11/07/17 21:00 56 11/07/17 20:23 51 11/07/17 20:23 Nasal Cannula 1.00 97 11/07/17 20:23 97.8 57 18 94/55 (68) 97 11/07/17 18:00 54 11/07/17 17:00 60 -: 11/08/17 0420 11/08/17 0420 Physical Exam General Appearance: Well Developed, Well Nourished Neck Neck Exam: Neck Supple Pulmonary Resp Exam: Clear Bilaterally, Breath Sounds Equal Cardiology CV Exam: Arrhythmia Gastrointestinal/Abdomen GI Exam: Soft, Non-Tender, Bowel Sounds Present Extremeties Extremities Exam: Trace Edema Assessment/Plan Problem List: (1) Acute renal failure ICD Codes: N17.9 - Acute kidney failure, unspecified Plan: Patient appears to have over diuresed hydrate NS ordered as Cr 2.1 Follow BMP US negative for hydro has renal cyst Avoid nephrotoxin Get baseline kidney ultrasound (2) COPD with exacerbation ICD Codes: J44.1 - Chronic obstructive pulmonary disease with (acute) exacerbation Plan: Patient appears to have COPD EF is 55-60% (3) Atrial fibrillation with RVR ICD Codes: I48.91 - Unspecified atrial fibrillation Plan: Heart rate is under control now (4) GI bleed ICD Codes: K92.2 - Gastrointestinal hemorrhage, unspecified Status: Acute Plan: Post endoscopy and colonoscopy few diverticula seen Problem Qualifiers (1) GI bleed: Qualified Codes: K92.2 - Gastrointestinal hemorrhage, unspecified Neno Carlson MD Nov 08, 2017 16:29
[2017-11-08] MEDS: SODIUM CHLOR 0.9% 1000 ML INJ 1,000 ML IV SCH (17:00)
[2017-11-08] MEDS: PANTOPRAZOLE SOD 40 MG DELAYED RELEASE TAB PO SCH (21:24)
[2017-11-09] VITALS (19 sets, daily range): BP systolic 109–127; BP diastolic 56–78; PULSE 76–118; RESP 18; TEMP 97.3–98; O2SAT 92–96
[2017-11-09] MEDS: SODIUM CHLOR 0.9% 1000 ML INJ 1,000 ML IV SCH ×2 (04:25→14:48)
[2017-11-09 06:02] LABS: HEMATOCRIT 29.5 % (39.0-51.0); HEMOGLOBIN 9.9 GM/DL (13.0-17.0); MEAN CELL VOLUME 90.4 FL (80.0-100.0); MEAN CORPUSCULAR HEMOGLOBIN 30.3 PG (27.0-34.0); MEAN CORPUSCULAR HGB CONC 33.5 % (32.0-36.0); MEAN PLATELET VOLUME 8.1 FL (7.0-11.0); PLATELET COUNT 165 TH/MM3 (150-450); RED BLOOD COUNT 3.27 MIL/MM3 (4.50-5.90); WHITE BLOOD COUNT 6.9 TH/MM3 (4.0-11.0)
[2017-11-09 06:31] LABS: BICARBONATE 28.3 MEQ/L (21.0-32.0); CALCIUM 8.5 MG/DL (8.5-10.1); CREATININE 1.59 MG/DL (0.60-1.30); MAGNESIUM 1.8 MG/DL (1.5-2.5)
--- NOTE | 2017-11-09 06:54 | RADRPT ---
EXAM DATE/TIME: 11/09/2017 05:27 [facility] COMPARISON: CHEST SINGLE AP, August 17, 2017, 14:19. INDICATIONS : Shortness of breath MEDICAL HISTORY : Hypertension. Chronic obstructive pulmonary disease. Cardiovascular disease. SURGICAL HISTORY : CABG. ENCOUNTER: Subsequent ACUITY: 1 week PAIN SCORE: 7/10 LOCATION: Bilateral chest FINDINGS: Interval development of patchy infiltrates in the medial right lower lung. Both hemidiaphragms are w ell delineated. The heart is stable in size. CONCLUSION: Interval development of patchy right lower lung infiltrates. Ben Verde MD on November 09, 2017 at 6:52 Board Certified Radiologist. This report was verified electronically.
[2017-11-09] MEDS: ISOSORBIDE MONONITRATE 60 MG CR TAB (IMDUR) PO SCH (09:57)
[2017-11-09] MEDS: DOXYCYCLINE INJ 100 MG in SODIUM CHLORIDE 0.9% INJ 100 ML IV SCH ×2 (09:57→23:45)
[2017-11-09] MEDS: BUDESONIDE-FORMOTEROL 80/4.5 MCG INHALER INH SCH ×2 (09:57→20:23)
[2017-11-09] MEDS: methylPREDNISolone SOD SUCC 40 MG/1 ML VIAL IV PUSH SCH ×3 (09:57→20:23)
[2017-11-09] MEDS: ATORVASTATIN 40 MG TAB PO SCH (09:57)
[2017-11-09] MEDS: PANTOPRAZOLE SOD 40 MG DELAYED RELEASE TAB PO SCH ×2 (09:57→20:23)
[2017-11-09] MEDS: SODIUM CHLORIDE 0.9% FLUSH 10 ML FLUSH IV FLUSH SCH ×2 (09:58→20:23)
[2017-11-09] MEDS: DILTIAZEM-CD 180 MG CAP ER PO SCH (09:58)
--- NOTE | 2017-11-09 10:15 | HHI.PR ---
Subjective Remarks The patient was sitting up in a chair. He said he was having a hard time breathing. He had no other acute complaints. He said he has been ambulatory. Objective Vitals Vital Signs Date Time Temp Pulse Resp B/P (MAP) Pulse Ox O2 Delivery O2 Flow Rate FiO2 11/09/17 08:01 92 21 11/09/17 06:00 94 11/09/17 05:00 96 11/09/17 04:00 82 11/09/17 03:30 98.0 82 18 126/59 (81) 93 11/09/17 03:00 118 11/09/17 03:00 93 Room Air 11/09/17 02:00 82 11/09/17 01:00 80 11/09/17 00:00 97.5 92 18 118/56 (76) 96 11/09/17 00:00 92 11/08/17 23:12 95 Room Air 11/08/17 23:00 80 11/08/17 22:00 74 11/08/17 21:30 94 Nasal Cannula 2.00 11/08/17 21:00 70 11/08/17 20:00 94 Room Air 11/08/17 20:00 97.5 71 18 117/57 (77) 95 11/08/17 20:00 70 11/08/17 19:00 62 11/08/17 18:00 71 11/08/17 17:00 68 11/08/17 16:00 67 11/08/17 15:00 65 11/08/17 15:00 95 Room Air 11/08/17 15:00 97.9 71 19 94/55 (68) 95 11/08/17 14:00 69 11/08/17 13:00 75 11/08/17 12:00 88 11/08/17 11:00 99 11/08/17 11:00 97.9 105 20 135/74 (94) 93 11/08/17 11:00 93 Room Air I/O 11/08/17 11/08/17 11/08/17 11/09/17 11/09/17 11/09/17 07:00 15:00 23:00 07:00 15:00 23:00 Intake Total 598 ml 155 ml 720 ml 480 ml Output Total 300 ml 300 ml 475 ml Balance 298 ml 155 ml 420 ml 5 ml Intake Oral 598 ml 720 ml 480 ml IV Total 155 ml Output Urine Total 300 ml 300 ml 475 ml # Bowel Movements 1 0 Result Diagram: 11/09/178 11/09/17 0418 Imaging Last Impressions Chest X-Ray 11/09/17 0600 Signed Impressions: Service Date/Time: Thursday, November 09, 2017 05:27 - CONCLUSION: Interval development of patchy right lower lung infiltrates. Ben Verde MD Renal Ultrasound 11/08/17 0000 Signed Impressions: Service Date/Time: November 09:21 - CONCLUSION: Benign cysts bilaterally. No concerning stone or hydronephrosis seen. Keven Freeman MD Abdomen/Pelvis CT 11/06/17 0000 Signed Impressions: Service Date/Time: Monday, November 06, 2017 16:11 - CONCLUSION: No evidence of acute abdominal or pelvic process. No masses are identified. Small bilateral effusions and right basilar atelectasis Marcos Mathis MD Objective Remarks GENERAL: NAD. SKIN: Warm and dry. HEAD: Normocephalic. EYES: No scleral icterus. No injection or drainage. NECK: Supple, trachea midline. No JVD. CARDIOVASCULAR: Tachycardic without murmurs, gallops or rubs. RESPIRATORY: Diffuse wheezing appreciated. GASTROINTESTINAL: Abdomen soft, non-tender, nondistended. MUSCULOSKELETAL: No cyanosis. Trace peripheral edema. BACK: Nontender without obvious deformity. No CVA tenderness. NEURO: No gross deficits. Medications and IVs Current Medications Medications (Trade) Dose Ordered Sig/Melody Route Start Time Stop Time Status Last Admin (NS Flush) 2 ml UNSCH PRN IV FLUSH 11/05/17 18:45 11/07/17 07:50 (NS Flush) 2 ml BID IV FLUSH 11/05/17 21:00 11/09/17 09:58 (Narcan Inj) 0.4 mg UNSCH PRN IV PUSH 11/05/17 18:45 (Symbicort 80-4.5 Mcg Inh) 2 puff Q12HR INH 11/05/17 21:00 11/09/17 09:57 (Cardizem Cd) 360 mg DAILY PO 11/06/17 09:00 11/09/17 09:58 (Imdur) 60 mg DAILY PO 11/06/17 09:00 11/09/17 09:57 (Prinivil) 5 mg DAILY PO 11/06/17 09:00 Future Hold 11/07/17 11:29 (Lipitor) 40 mg DAILY PO 11/06/17 09:00 11/09/17 09:57 (Pill Splitter) 1 ea UNSCH PRN OTHER 11/05/17 22:15 (Protonix) 40 mg Q12HR PO 11/08/17 21:00 11/09/17 09:57 (Proair Hfa Inh) 2 puff Q4H PRN INH 11/08/17 10:30 Sodium Chloride 1,000 ml @ 84 mls/hr [id number] IV 11/08/17 16:30 11/08/17 17:00 Doxycycline Hyclate 100 mg/ Sodium Chloride 100 ml @ 100 mls/hr Q12H IV 11/09/17 10:00 11/09/17 09:57 (SoluMEDROL INJ) 40 mg Q8HR IV PUSH 11/09/17 10:00 11/09/17 09:57 A/P Assessment and Plan Atrial fibrillation with RVR/ CHF exacerbation The pt presented with chest pain/shortness of breath. RVR has resolved. Diltiazem drip has been weaned. Negative ACS workup. Cardiology consult appreciated. - Continue cardiac regimen. - Cardiology following. - telemetry. - d/c Lasix. - resume anticoagulation if OK with cardiology. GI bleed S/p Protonix drip. GI consult appreciated. No signs of bleeding on EGD/ colonoscopy. - Holding home Eliquis. - continue PO PPI BID. Dyspnea/ PNA Diffuse wheezing on exam. CXR with right infiltrates. He endorses pleuritic chest pain with incentive spirometry. - continue inhalers. - start IV doxycycline. - sputum culture. - IV Solumedrol. - wean oxygen. - IS. - encourage ambulation. Hypertension Well controlled. - Continue current regimen. Acute kidney injury On chronic kidney disease stage III. Nephrology consult appreciated. Renal US unremarkable. - Discontinue Lasix. Hold LISSET inhibitor. - follow up with nephrology. DVT prophylaxis: SCDs Discharge Planning Awaiting improvement in respiratory status Bean Loaiza DO Nov 09, 2017 10:15
--- NOTE | 2017-11-09 17:29 | HHI.NPPN ---
Subjective History of Present Illness pt with ARF/Afib/dark stools Additional Remarks Complaining of shortness of breath Review of Systems General Constitutional: Fatigue Respiratory Lungs: SOB Cardiovascular Cardiac: Edema Objective Data Data 11/09/17 11/10/17 19:00 07:00 Intake Total 600 ml Output Total 700 ml Balance -100 ml Intake Oral 600 ml Output Urine Total 700 ml # Bowel Movements 0 Vital Signs Date Time Temp Pulse Resp B/P (MAP) Pulse Ox O2 Delivery O2 Flow Rate FiO2 11/09/17 15:00 93 Room Air 11/09/17 15:00 97.5 109 18 109/62 (78) 93 11/09/17 11:00 97.5 115 18 120/78 (92) 93 11/09/17 11:00 93 Room Air 11/09/17 08:01 92 21 11/09/17 08:00 97.3 100 18 115/60 (78) 92 11/09/17 08:00 85 11/09/17 07:15 100 11/09/17 07:15 92 Room Air 11/09/17 06:00 94 11/09/17 05:00 96 11/09/17 04:00 82 11/09/17 03:30 98.0 82 18 126/59 (81) 93 11/09/17 03:00 118 11/09/17 03:00 93 Room Air 11/09/17 02:00 82 11/09/17 01:00 80 11/09/17 00:00 97.5 92 18 118/56 (76) 96 11/09/17 00:00 92 11/08/17 23:12 95 Room Air 11/08/17 23:00 80 11/08/17 22:00 74 11/08/17 21:30 94 Nasal Cannula 2.00 11/08/17 21:00 70 11/08/17 20:00 94 Room Air 11/08/17 20:00 97.5 71 18 117/57 (77) 95 11/08/17 20:00 70 11/08/17 19:00 62 11/08/17 18:00 71 -: 11/09/17 0418 11/09/17 0418 Physical Exam General Appearance: Well Developed, Well Nourished Neck Neck Exam: Neck Supple Pulmonary Resp Exam: Crackles, Rhonchi Cardiology CV Exam: Arrhythmia Gastrointestinal/Abdomen GI Exam: Soft, Non-Tender, Bowel Sounds Present Extremeties Extremities Exam: Trace Edema Assessment/Plan Problem List: (1) Acute renal failure ICD Codes: N17.9 - Acute kidney failure, unspecified Plan: Patient appears to have over diuresed hydrate NS ordered as Cr 1.5 Patient now short of breath Stop IV fluids Give her albumin 25 g Followed by Lasix 40 mg IV Chest x-ray showed increasing infiltrate right lung (2) COPD with exacerbation ICD Codes: J44.1 - Chronic obstructive pulmonary disease with (acute) exacerbation Plan: Patient appears to have COPD EF is 55-60% (3) Atrial fibrillation with RVR ICD Codes: I48.91 - Unspecified atrial fibrillation Plan: Heart rate is under control now (4) GI bleed ICD Codes: K92.2 - Gastrointestinal hemorrhage, unspecified Status: Acute Plan: Post endoscopy and colonoscopy few diverticula seen Problem Qualifiers (1) GI bleed: Qualified Codes: K92.2 - Gastrointestinal hemorrhage, unspecified Neno Carlson MD Nov 09, 2017 17:29
[2017-11-09] MEDS ORDERED: ALBUMIN 25% INJ 100 ML IV ONE (17:30)
[2017-11-09] MEDS ORDERED: FUROSEMIDE 40 MG/4 ML VIAL IV PUSH ONE (19:00)
[2017-11-10] VITALS (31 sets, daily range): BP systolic 96–137; BP diastolic 53–82; PULSE 44–121; RESP 16–21; TEMP 97.3–98.2; O2SAT 92–97
[2017-11-10] MEDS: methylPREDNISolone SOD SUCC 40 MG/1 ML VIAL IV PUSH SCH ×4 (05:21→22:31)
[2017-11-10 05:34] LABS: HEMATOCRIT 29.2 % (39.0-51.0); HEMOGLOBIN 9.8 GM/DL (13.0-17.0); MEAN CELL VOLUME 89.5 FL (80.0-100.0); MEAN CORPUSCULAR HGB CONC 33.6 % (32.0-36.0); MEAN PLATELET VOLUME 8.3 FL (7.0-11.0); PLATELET COUNT 158 TH/MM3 (150-450); RED BLOOD COUNT 3.26 MIL/MM3 (4.50-5.90); RED CELL DISTRIBUTION WIDTH 15.6 % (11.6-17.2); WHITE BLOOD COUNT 5.5 TH/MM3 (4.0-11.0)
[2017-11-10 05:58] LABS: BICARBONATE 27.1 MEQ/L (21.0-32.0); CALCIUM 9.3 MG/DL (8.5-10.1); CREATININE 1.49 MG/DL (0.60-1.30); MAGNESIUM 1.8 MG/DL (1.5-2.5)
[2017-11-10] MEDS: ISOSORBIDE MONONITRATE 60 MG CR TAB (IMDUR) PO SCH (09:19)
[2017-11-10] MEDS: DOXYCYCLINE INJ 100 MG in SODIUM CHLORIDE 0.9% INJ 100 ML IV SCH ×3 (09:19→22:31)
[2017-11-10] MEDS: DILTIAZEM-CD 180 MG CAP ER PO SCH (09:19)
[2017-11-10] MEDS: ATORVASTATIN 40 MG TAB PO SCH (09:20)
[2017-11-10] MEDS: BUDESONIDE-FORMOTEROL 80/4.5 MCG INHALER INH SCH ×2 (09:20→21:02)
[2017-11-10] MEDS: PANTOPRAZOLE SOD 40 MG DELAYED RELEASE TAB PO SCH ×2 (09:20→21:02)
[2017-11-10] MEDS: SODIUM CHLORIDE 0.9% FLUSH 10 ML FLUSH IV FLUSH SCH ×2 (09:21→21:02)
--- NOTE | 2017-11-10 09:55 | HHI.PR ---
Subjective Remarks The patient said that his breathing was better. He was using the incentive spirometer regularly. He said he has mucus at times but otherwise he dries up. He says he does not smoke. He says he follows up with Dr. Villa as an outpatient. Objective Vitals Vital Signs Date Time Temp Pulse Resp B/P (MAP) Pulse Ox O2 Delivery O2 Flow Rate FiO2 11/10/17 08:06 93 Room Air 11/10/17 08:06 97.6 16 137/82 (100) 93 11/10/17 06:00 104 11/10/17 05:00 102 11/10/17 04:19 93 Room Air 11/10/17 04:11 97.5 82 18 126/71 (89) 96 11/10/17 04:00 94 11/10/17 03:00 96 11/10/17 02:00 90 11/10/17 01:00 82 11/10/17 00:43 97.6 78 18 137/61 (86) 93 11/10/17 00:42 93 Room Air 11/10/17 00:00 78 11/09/17 23:00 78 11/09/17 22:00 78 11/09/17 21:51 94 Room Air 11/09/17 21:00 76 11/09/17 20:30 97.5 76 18 127/61 (83) 94 11/09/17 20:00 76 11/09/17 19:00 85 11/09/17 15:00 93 Room Air 11/09/17 15:00 97.5 109 18 109/62 (78) 93 11/09/17 11:00 97.5 115 18 120/78 (92) 93 11/09/17 11:00 93 Room Air I/O 11/09/17 11/09/17 11/09/17 11/10/17 11/10/17 11/10/17 07:00 15:00 23:00 07:00 15:00 23:00 Intake Total 480 ml 1100 ml 952 ml 580 ml Output Total 475 ml 700 ml 1300 ml Balance 5 ml 1100 ml 252 ml -720 ml Intake Oral 480 ml 600 ml 480 ml IV Total 1100 ml 352 ml 100 ml Output Urine Total 475 ml 700 ml 1300 ml # Bowel Movements 0 0 0 Result Diagram: 11/10/17 0418 11/10/17417 Imaging Last Impressions Chest X-Ray 11/09/17 0600 Signed Impressions: Service Date/Time: Thursday, November 09, 2017 05:27 - CONCLUSION: Interval development of patchy right lower lung infiltrates. Ben Verde MD Renal Ultrasound 11/08/17 0000 Signed Impressions: Service Date/Time: November 09:21 - CONCLUSION: Benign cysts bilaterally. No concerning stone or hydronephrosis seen. Keven Freeman MD Abdomen/Pelvis CT 11/06/17 0000 Signed Impressions: Service Date/Time: Monday, November 06, 2017 16:11 - CONCLUSION: No evidence of acute abdominal or pelvic process. No masses are identified. Small bilateral effusions and right basilar atelectasis Marcos Mathis MD Objective Remarks GENERAL: NAD. SKIN: Warm and dry. HEAD: Normocephalic. EYES: No scleral icterus. No injection or drainage. NECK: Supple, trachea midline. No JVD. CARDIOVASCULAR: Tachycardic without murmurs, gallops or rubs. RESPIRATORY: Diffuse wheezing appreciated. Slight improvement. GASTROINTESTINAL: Abdomen soft, non-tender, nondistended. MUSCULOSKELETAL: No cyanosis. Trace peripheral edema. BACK: Nontender without obvious deformity. No CVA tenderness. NEURO: No gross deficits. PSYCH: Mood and affect appropriate. Medications and IVs Current Medications Medications (Trade) Dose Ordered Sig/Melody Route Start Time Stop Time Status Last Admin (NS Flush) 2 ml UNSCH PRN IV FLUSH 11/05/17 18:45 11/07/17 07:50 (NS Flush) 2 ml BID IV FLUSH 11/05/17 21:00 11/10/17 09:21 (Narcan Inj) 0.4 mg UNSCH PRN IV PUSH 11/05/17 18:45 (Symbicort 80-4.5 Mcg Inh) 2 puff Q12HR INH 11/05/17 21:00 11/10/17 09:20 (Cardizem Cd) 360 mg DAILY PO 11/06/17 09:00 11/10/17 09:19 (Imdur) 60 mg DAILY PO 11/06/17 09:00 11/10/17 09:19 (Prinivil) 5 mg DAILY PO 11/06/17 09:00 Future Hold 11/07/17 11:29 (Lipitor) 40 mg DAILY PO 11/06/17 09:00 11/10/17 09:20 (Pill Splitter) 1 ea UNSCH PRN OTHER 11/05/17 22:15 (Protonix) 40 mg Q12HR PO 11/08/17 21:00 11/10/17 09:20 (Proair Hfa Inh) 2 puff Q4H PRN INH 11/08/17 10:30 Doxycycline Hyclate 100 mg/ Sodium Chloride 100 ml @ 100 mls/hr Q12H IV 11/09/17 10:00 11/10/17 09:19 (SoluMEDROL INJ) 40 mg Q8HR IV PUSH 11/09/17 10:00 11/10/17 05:21 A/P Assessment and Plan Atrial fibrillation with RVR/ CHF exacerbation The pt presented with chest pain/shortness of breath. RVR has resolved. Diltiazem drip has been weaned. Negative ACS workup. Cardiology consult appreciated. - Continue cardiac regimen. - Cardiology following. - telemetry. - d/c Lasix. - resume anticoagulation if OK with cardiology. GI bleed S/p Protonix drip. GI consult appreciated. No signs of bleeding on EGD/ colonoscopy. - Holding home Eliquis. Will touch base with cardiology about resuming. - continue PO PPI BID. - check anemia labs, Hemoccult. Dyspnea/ PNA/ COPD Diffuse wheezing on exam. CXR with right infiltrates. He endorses pleuritic chest pain with incentive spirometry. Improving. - continue inhalers. - continue IV doxycycline. - sputum culture. - IV Solumedrol. - wean oxygen. - IS. - encourage ambulation. Hypertension Well controlled. - Continue current regimen. Acute kidney injury On chronic kidney disease stage III. Nephrology consult appreciated. Renal US unremarkable. - Discontinue Lasix. Hold LISSET inhibitor. - follow up with nephrology. DVT prophylaxis: SCDs Discharge Planning Awaiting improvement in respiratory status Bean Loaiza DO Nov 10, 2017 09:55
--- NOTE | 2017-11-10 11:51 | PD.CARD.PN ---
Subjective Subjective Remarks Mild dyspnea Objective Medications Current Medications Medications (Trade) Dose Ordered Sig/Melody Route Start Time Stop Time Status Last Admin (NS Flush) 2 ml UNSCH PRN IV FLUSH 11/05/17 18:45 11/07/17 07:50 (NS Flush) 2 ml BID IV FLUSH 11/05/17 21:00 11/10/17 09:21 (Narcan Inj) 0.4 mg UNSCH PRN IV PUSH 11/05/17 18:45 (Symbicort 80-4.5 Mcg Inh) 2 puff Q12HR INH 11/05/17 21:00 11/10/17 09:20 (Cardizem Cd) 360 mg DAILY PO 11/06/17 09:00 11/10/17 09:19 (Imdur) 60 mg DAILY PO 11/06/17 09:00 11/10/17 09:19 (Prinivil) 5 mg DAILY PO 11/06/17 09:00 Future Hold 11/07/17 11:29 (Lipitor) 40 mg DAILY PO 11/06/17 09:00 11/10/17 09:20 (Pill Splitter) 1 ea UNSCH PRN OTHER 11/05/17 22:15 (Protonix) 40 mg Q12HR PO 11/08/17 21:00 11/10/17 09:20 (Proair Hfa Inh) 2 puff Q4H PRN INH 11/08/17 10:30 Doxycycline Hyclate 100 mg/ Sodium Chloride 100 ml @ 100 mls/hr Q12H IV 11/09/17 10:00 11/10/17 09:19 (SoluMEDROL INJ) 40 mg Q8HR IV PUSH 11/09/17 10:00 11/10/17 05:21 (Lopressor) 25 mg Q12HR PO 11/10/17 11:45 UNV (Eliquis) 2.5 mg BID PO 11/10/17 11:45 UNV (Demadex) 20 mg DAILY PO 11/10/17 11:45 UNV Vital Signs / I&O Vital Signs Date Time Temp Pulse Resp B/P (MAP) Pulse Ox O2 Delivery O2 Flow Rate FiO2 11/10/17 11:09 93 Room Air 11/10/17 11:09 97.3 108 16 136/60 (85) 93 11/10/17 11:00 121 11/10/17 10:03 119 11/10/17 09:00 102 11/10/17 08:06 93 Room Air 11/10/17 08:06 97.6 116 16 137/82 (100) 93 11/10/17 08:00 106 11/10/17 07:00 105 11/10/17 06:00 104 11/10/17 05:00 102 11/10/17 04:19 93 Room Air 11/10/17 04:11 97.5 82 18 126/71 (89) 96 11/10/17 04:00 94 11/10/17 03:00 96 11/10/17 02:00 90 11/10/17 01:00 82 11/10/17 00:43 97.6 78 18 137/61 (86) 93 11/10/17 00:42 93 Room Air 11/10/17 00:00 78 11/09/17 23:00 78 11/09/17 22:00 78 11/09/17 21:51 94 Room Air 11/09/17 21:00 76 11/09/17 20:30 97.5 76 18 127/61 (83) 94 11/09/17 20:00 76 11/09/17 19:00 85 11/09/17 15:00 93 Room Air 11/09/17 15:00 97.5 109 18 109/62 (78) 93 I/O 11/09/17 11/09/17 11/09/17 11/10/17 11/10/17 11/10/17 07:00 15:00 23:00 07:00 15:00 23:00 Intake Total 480 ml 1100 ml 952 ml 580 ml Output Total 475 ml 700 ml 1300 ml Balance 5 ml 1100 ml 252 ml -720 ml Intake Oral 480 ml 600 ml 480 ml IV Total 1100 ml 352 ml 100 ml Output Urine Total 475 ml 700 ml 1300 ml # Bowel Movements 0 0 0 Physical Exam Obese, sitting up, No resp distress Neck veins hard to assess Chest: decreased BS at bases, mild wheezes mid to lower lung [place] CV: S1S2 irr irr. Rate is 105 rest, 120's sitting up Trace-1+ edema Laboratory Laboratory Tests Test 11/10/17 04:18 White Blood Count 5.5 TH/MM3 Red Blood Count 3.26 MIL/MM3 Hemoglobin 9.8 GM/DL Hematocrit 29.2 % Mean Corpuscular Volume 89.5 FL Mean Corpuscular Hemoglobin 30.0 PG Mean Corpuscular Hemoglobin Concent 33.6 % Red Cell Distribution Width 15.6 % Platelet Count 158 TH/MM3 Mean Platelet Volume 8.3 FL Blood Urea Nitrogen 30 MG/DL Creatinine 1.49 MG/DL Random Glucose 152 MG/DL Calcium Level 9.3 MG/DL Magnesium Level 1.8 MG/DL Sodium Level 143 MEQ/L Potassium Level 4.2 MEQ/L Chloride Level 106 MEQ/L Carbon Dioxide Level 27.1 MEQ/L Anion Gap 10 MEQ/L Estimat Glomerular Filtration Rate 46 ML/MIN Imaging Last 48 hours Impressions Chest X-Ray 11/09/17 0600 Signed Impressions: Service Date/Time: Thursday, November 09, 2017 05:27 - CONCLUSION: Interval development of patchy right lower lung infiltrates. Ben Verde MD Assessment and Plan Problem List: (1) CAD (coronary artery disease) ICD Codes: I25.10 - Atherosclerotic heart disease of [place] coronary artery without angina pectoris Plan: Lnown diseased LCX with occluded grafts to LCX. Medical therapy. (2) Atrial fibrillation with RVR ICD Codes: I48.91 - Unspecified atrial fibrillation Plan: Rate not optimal. Add metoprolol 25mg bid (3) Congestive heart failure ICD Codes: I50.9 - Heart failure, unspecified Status: Acute Plan: Torsemide 20mg PO now and daily Assessment and Plan No stable for discharge Problem Qualifiers (1) Congestive heart failure: Qualified Codes: I50.9 - Heart failure, unspecified Tong Ruiz MD Nov 10, 2017 11:51
[2017-11-10 11:55] LABS: % SATURATION IRON PROFILE 9.5 % (20-50); FERRITIN 60 NG/ML (26-388); FOLATE 18.4 NG/ML (3.1-17.5); IRON (FE) 27 MCG/DL (65-175); TOTAL IRON BINDING CAPACITY 284 MCG/DL (250-450)
[2017-11-10] MEDS: APIXABAN 2.5 MG TABLET PO SCH ×2 (12:41→21:02)
[2017-11-10] MEDS: METOPROLOL TARTRATE 25 MG TAB PO SCH ×2 (12:41→20:58)
[2017-11-10] MEDS: TORSEMIDE 20 MG TAB PO SCH (12:41)
[2017-11-11] VITALS (28 sets, daily range): BP systolic 104–125; BP diastolic 58–67; PULSE 57–115; RESP 19–21; TEMP 97.8–98.4; O2SAT 93–96
[2017-11-11] MEDS: methylPREDNISolone SOD SUCC 40 MG/1 ML VIAL IV PUSH SCH (05:18)
[2017-11-11 05:53] LABS: AUTOMATED NEUTROPHIL # 10.9 TH/MM3 (1.8-7.7); BASOPHIL % 0.3 % (0.0-2.0); EOSINOPHIL # 0.1 TH/MM3 (0-0.4); EOSINOPHIL % 0.7 % (0.0-4.0); HEMATOCRIT 30.9 % (39.0-51.0); HEMOGLOBIN 10.3 GM/DL (13.0-17.0); LYMPH % 3.6 % (9.0-44.0); LYMPHOCYTE # 0.4 TH/MM3 (1.0-4.8); MEAN CELL VOLUME 90.2 FL (80.0-100.0); MEAN CORPUSCULAR HEMOGLOBIN 30.1 PG (27.0-34.0); MEAN CORPUSCULAR HGB CONC 33.3 % (32.0-36.0); MEAN PLATELET VOLUME 8.8 FL (7.0-11.0); MONO % 2.3 % (0.0-8.0); MONOCYTE # 0.3 TH/MM3 (0-0.9); NEUT % 93.1 % (16.0-70.0); PLATELET COUNT 181 TH/MM3 (150-450); RED BLOOD COUNT 3.42 MIL/MM3 (4.50-5.90); WHITE BLOOD COUNT 11.7 TH/MM3 (4.0-11.0)
--- NOTE | 2017-11-11 06:10 | RADRPT ---
EXAM DATE/TIME: 11/11/2017 04:22 [facility] COMPARISON: CHEST SINGLE AP, November 09, 2017, 5:27. INDICATIONS : Shortness of breath, possible pulmonary disease. MEDICAL HISTORY : Hypertension. Chronic obstructive pulmonary disease. Cardiovascular disease. SURGICAL HISTORY : CABG. ENCOUNTER: Subsequent ACUITY: 1 week PAIN SCORE: 0/10 LOCATION: Bilateral chest FINDINGS: A single view of the chest demonstrates the lungs to be symmetrically aerated without evidence of mas s, infiltrate or effusion. The cardiomediastinal contours are unremarkable. Osseous structures are intact. Median sternotomy with intact sternal wire sutures. CONCLUSION: The lungs are clear. Interval resolution of the right lower lung infiltrate. Ben Verde MD on November 11, 2017 at 6:09 Board Certified Radiologist. This report was verified electronically.
[2017-11-11 06:28] LABS: BICARBONATE 25.1 MEQ/L (21.0-32.0); CALCIUM 9.2 MG/DL (8.5-10.1); CREATININE 1.94 MG/DL (0.60-1.30); MAGNESIUM 1.9 MG/DL (1.5-2.5)
[2017-11-11] MEDS: METOPROLOL TARTRATE 25 MG TAB PO SCH (09:00)
--- NOTE | 2017-11-11 09:00 | HHI.NPPN ---
Subjective History of Present Illness pt with ARF/Afib/dark stools Additional Remarks On Demadex. Renal function is slightly worse. Review of Systems General Constitutional: Fatigue Respiratory Lungs: SOB Cardiovascular Cardiac: Edema Objective Data Data Vital Signs Date Time Temp Pulse Resp B/P (MAP) Pulse Ox O2 Delivery O2 Flow Rate FiO2 11/11/17 08:47 86 11/11/17 08:02 97.8 90 19 118/67 (84) 95 11/11/17 08:02 Room Air 11/11/17 07:00 115 11/11/17 06:11 91 11/11/17 05:05 75 11/11/17 04:25 78 11/11/17 03:26 67 11/11/17 03:26 98.3 69 20 107/64 (78) 95 11/11/17 03:26 Room Air 11/11/17 02:18 62 11/11/17 01:20 59 11/11/17 00:56 57 11/10/17 23:48 50 11/10/17 23:48 98.0 56 21 96/56 (69) 95 11/10/17 23:48 Room Air 11/10/17 22:03 57 11/10/17 21:47 44 11/10/17 20:51 95 21 11/10/17 20:09 53 11/10/17 19:15 Room Air 11/10/17 19:15 98.2 46 21 98/53 (68) 96 11/10/17 19:15 49 11/10/17 18:17 49 11/10/17 17:00 64 11/10/17 16:03 68 11/10/17 15:24 97.6 74 16 117/58 (77) 97 11/10/17 15:24 97 Room Air 11/10/17 15:00 70 11/10/17 14:14 75 11/10/17 13:00 94 11/10/17 12:00 108 11/10/17 11:20 92 21 11/10/17 11:09 93 Room Air 11/10/17 11:09 97.3 108 16 136/60 (85) 93 11/10/17 11:00 121 11/10/17 10:03 119 11/10/17 09:00 102 -: 11/11/17 0455 11/11/17 0455 Physical Exam General Appearance: Well Developed, Well Nourished Neck Neck Exam: Neck Supple Pulmonary Resp Exam: Crackles, Rhonchi Cardiology CV Exam: Arrhythmia Gastrointestinal/Abdomen GI Exam: Soft, Non-Tender, Bowel Sounds Present Extremeties Extremities Exam: Trace Edema Assessment/Plan Problem List: (1) Acute renal failure ICD Codes: N17.9 - Acute kidney failure, unspecified Plan: On Demadex. Creatinine is higher. Monitor. Cardiology following. Avoid nephrotoxic agents. Kevin Gatica MD Nov 11, 2017 09:00
[2017-11-11] MEDS: BUDESONIDE-FORMOTEROL 80/4.5 MCG INHALER INH SCH ×2 (09:26→21:18)
[2017-11-11] MEDS: TORSEMIDE 20 MG TAB PO SCH (09:27)
[2017-11-11] MEDS: ATORVASTATIN 40 MG TAB PO SCH (09:28)
[2017-11-11] MEDS: ISOSORBIDE MONONITRATE 60 MG CR TAB (IMDUR) PO SCH (09:28)
[2017-11-11] MEDS: PANTOPRAZOLE SOD 40 MG DELAYED RELEASE TAB PO SCH ×2 (09:28→21:18)
--- NOTE | 2017-11-11 09:28 | HHI.PR ---
Subjective Remarks The patient said that he was still coughing up mucus. He denied any palpitations. He wanted to know why his kidney function was getting worse. Discussed with nursing who is concerned about slow heart rate and low blood pressures. Objective Vitals Vital Signs Date Time Temp Pulse Resp B/P (MAP) Pulse Ox O2 Delivery O2 Flow Rate FiO2 11/11/17 08:47 86 11/11/17 08:02 97.8 90 19 118/67 (84) 95 11/11/17 08:02 Room Air 11/11/17 07:00 115 11/11/17 06:11 91 11/11/17 05:05 75 11/11/17 04:25 78 11/11/17 03:26 67 11/11/17 03:26 98.3 69 20 107/64 (78) 95 11/11/17 03:26 Room Air 11/11/17 02:18 62 11/11/17 01:20 59 11/11/17 00:56 57 11/10/17 23:48 50 11/10/17 23:48 98.0 56 21 96/56 (69) 95 11/10/17 23:48 Room Air 11/10/17 22:03 57 11/10/17 21:47 44 11/10/17 20:51 95 21 11/10/17 20:09 53 11/10/17 19:15 Room Air 11/10/17 19:15 98.2 46 21 98/53 (68) 96 11/10/17 19:15 49 11/10/17 18:17 49 11/10/17 17:00 64 11/10/17 16:03 68 11/10/17 15:24 97.6 74 16 117/58 (77) 97 11/10/17 15:24 97 Room Air 11/10/17 15:00 70 11/10/17 14:14 75 11/10/17 13:00 94 11/10/17 12:00 108 11/10/17 11:20 92 21 11/10/17 11:09 93 Room Air 11/10/17 11:09 97.3 108 16 136/60 (85) 93 11/10/17 11:00 121 11/10/17 10:03 119 I/O 11/10/17 11/10/17 11/10/17 11/11/17 11/11/17 3/4/18 07:00 15:00 23:00 07:00 15:00 23:00 Intake Total 580 ml 960 ml 240 ml Output Total 1300 ml 1400 ml 300 ml Balance -720 ml -440 ml -60 ml Intake Oral 480 ml 960 ml 240 ml IV Total 100 ml Output Urine Total 1300 ml 1400 ml 300 ml # Voids 2 # Bowel Movements 0 1 Result Diagram: 11/11/17 0455 11/11/17 0455 Imaging Last Impressions Chest X-Ray 11/11/17 0600 Signed Impressions: Service Date/Time: Saturday, November 11, 2017 04:22 - CONCLUSION: The lungs are clear. Interval resolution of the right lower lung infiltrate. Ben Verde MD Renal Ultrasound 11/08/17 0000 Signed Impressions: Service Date/Time: November 09:21 - CONCLUSION: Benign cysts bilaterally. No concerning stone or hydronephrosis seen. Keven Freeman MD Abdomen/Pelvis CT 11/06/17 0000 Signed Impressions: Service Date/Time: Monday, November 06, 2017 16:11 - CONCLUSION: No evidence of acute abdominal or pelvic process. No masses are identified. Small bilateral effusions and right basilar atelectasis Marcos Mathis MD Objective Remarks GENERAL: NAD. SKIN: Warm and dry. HEAD: Normocephalic. EYES: No scleral icterus. No injection or drainage. NECK: Supple, trachea midline. No JVD. CARDIOVASCULAR: Tachycardic without murmurs, gallops or rubs. RESPIRATORY: Mild bilateral wheezing. GASTROINTESTINAL: Abdomen soft, non-tender, nondistended. MUSCULOSKELETAL: No cyanosis. Trace peripheral edema. BACK: Nontender without obvious deformity. No CVA tenderness. NEURO: No gross deficits. PSYCH: Mood and affect appropriate. Medications and IVs Current Medications Medications (Trade) Dose Ordered Sig/Melody Route Start Time Stop Time Status Last Admin (NS Flush) 2 ml UNSCH PRN IV FLUSH 11/05/17 18:45 11/07/17 07:50 (NS Flush) 2 ml BID IV FLUSH 11/05/17 21:00 11/10/17 21:02 (Narcan Inj) 0.4 mg UNSCH PRN IV PUSH 11/05/17 18:45 (Symbicort 80-4.5 Mcg Inh) 2 puff Q12HR INH 11/05/17 21:00 11/10/17 21:02 (Cardizem Cd) 360 mg DAILY PO 11/06/17 09:00 11/10/17 09:19 (Imdur) 60 mg DAILY PO 11/06/17 09:00 11/10/17 09:19 (Prinivil) 5 mg DAILY PO 11/06/17 09:00 Future Hold 11/07/17 11:29 (Lipitor) 40 mg DAILY PO 11/06/17 09:00 11/10/17 09:20 (Pill Splitter) 1 ea UNSCH PRN OTHER 11/05/17 22:15 (Protonix) 40 mg Q12HR PO 11/08/17 21:00 11/10/17 21:02 (Proair Hfa Inh) 2 puff Q4H PRN INH 11/08/17 10:30 Doxycycline Hyclate 100 mg/ Sodium Chloride 100 ml @ 100 mls/hr Q12H IV 11/09/17 10:00 11/10/17 22:31 (Lopressor) 25 mg Q12HR PO 11/10/17 11:45 11/10/17 12:41 (Eliquis) 2.5 mg BID PO 11/10/17 11:45 11/10/17 21:02 (Demadex) 20 mg DAILY PO 11/10/17 11:45 11/10/17 12:41 (Deltasone) 20 mg BID PO 11/11/17 21:00 A/P Assessment and Plan Atrial fibrillation with RVR/ CHF exacerbation The pt presented with chest pain/shortness of breath. RVR has resolved. Diltiazem drip has been weaned. Negative ACS workup. Cardiology consult appreciated. - Continue cardiac regimen. - Cardiology following. Lopressor added with holding parameters. - telemetry. - Eliquis resumed. GI bleed S/p Protonix drip. GI consult appreciated. No signs of bleeding on EGD/ colonoscopy. Labs consistent with iron deficiency anemia. - Eliquis resumed by cardiology. - continue PO PPI BID. - check Hemoccult. Dyspnea/ PNA/ COPD Diffuse wheezing on exam. CXR with right infiltrates. He endorses pleuritic chest pain with incentive spirometry. Wheezing has improved significantly. Repeat chest x-ray 11/11/17 with resolution of infiltrates. - continue inhalers. - continue IV doxycycline. - sputum culture. - Change IV Solumedrol to by mouth prednisone. - wean oxygen. - IS. - encourage ambulation. - Home oxygen walk test. Hypertension Well controlled. - Continue current regimen. Acute kidney injury On chronic kidney disease stage III. Nephrology consult appreciated. Renal US unremarkable. Creatinine is increasing 3/4. - Hold LISSET inhibitor. - follow up with nephrology. Currently on torsemide. DVT prophylaxis: Eliquis Discharge Planning Awaiting improvement in renal function Bean Loaiza DO Nov 11, 2017 09:28
[2017-11-11] MEDS: DILTIAZEM-CD 180 MG CAP ER PO SCH (09:29)
[2017-11-11] MEDS: APIXABAN 2.5 MG TABLET PO SCH ×2 (09:29→21:18)
[2017-11-11] MEDS: SODIUM CHLORIDE 0.9% FLUSH 10 ML FLUSH IV FLUSH SCH ×2 (09:29→21:18)
--- NOTE | 2017-11-11 10:37 | PD.CARD.PN ---
Subjective Subjective Remarks No new complaints Objective Medications Current Medications Medications (Trade) Dose Ordered Sig/Melody Route Start Time Stop Time Status Last Admin (NS Flush) 2 ml UNSCH PRN IV FLUSH 11/05/17 18:45 11/07/17 07:50 (NS Flush) 2 ml BID IV FLUSH 11/05/17 21:00 11/11/17 09:29 (Narcan Inj) 0.4 mg UNSCH PRN IV PUSH 11/05/17 18:45 (Symbicort 80-4.5 Mcg Inh) 2 puff Q12HR INH 11/05/17 21:00 11/11/17 09:26 (Cardizem Cd) 360 mg DAILY PO 11/06/17 09:00 11/11/17 09:29 (Imdur) 60 mg DAILY PO 11/06/17 09:00 11/11/17 09:28 (Prinivil) 5 mg DAILY PO 11/06/17 09:00 Future Hold 11/07/17 11:29 (Lipitor) 40 mg DAILY PO 11/06/17 09:00 11/11/17 09:28 (Pill Splitter) 1 ea UNSCH PRN OTHER 11/05/17 22:15 (Protonix) 40 mg Q12HR PO 11/08/17 21:00 11/11/17 09:28 (Proair Hfa Inh) 2 puff Q4H PRN INH 11/08/17 10:30 Doxycycline Hyclate 100 mg/ Sodium Chloride 100 ml @ 100 mls/hr Q12H IV 11/09/17 10:00 11/10/17 22:31 (Lopressor) 25 mg Q12HR PO 11/10/17 11:45 11/10/17 12:41 (Eliquis) 2.5 mg BID PO 11/10/17 11:45 11/11/17 09:29 (Demadex) 20 mg DAILY PO 11/10/17 11:45 11/11/17 09:27 (Deltasone) 20 mg BID PO 11/11/17 21:00 Vital Signs / I&O Vital Signs Date Time Temp Pulse Resp B/P (MAP) Pulse Ox O2 Delivery O2 Flow Rate FiO2 11/11/17 08:47 86 11/11/17 08:02 97.8 90 19 118/67 (84) 95 11/11/17 08:02 Room Air 11/11/17 07:00 115 11/11/17 06:11 91 11/11/17 05:05 75 11/11/17 04:25 78 11/11/17 03:26 67 11/11/17 03:26 98.3 69 20 107/64 (78) 95 11/11/17 03:26 Room Air 11/11/17 02:18 62 11/11/17 01:20 59 11/11/17 00:56 57 11/10/17 23:48 50 11/10/17 23:48 98.0 56 21 96/56 (69) 95 11/10/17 23:48 Room Air 11/10/17 22:03 57 11/10/17 21:47 44 11/10/17 20:51 95 21 11/10/17 20:09 53 11/10/17 19:15 Room Air 11/10/17 19:15 98.2 46 21 98/53 (68) 96 11/10/17 19:15 49 11/10/17 18:17 49 11/10/17 17:00 64 11/10/17 16:03 68 11/10/17 15:24 97.6 74 16 117/58 (77) 97 11/10/17 15:24 97 Room Air 11/10/17 15:00 70 11/10/17 14:14 75 11/10/17 13:00 94 11/10/17 12:00 108 11/10/17 11:20 92 21 11/10/17 11:09 93 Room Air 11/10/17 11:09 97.3 108 16 136/60 (85) 93 11/10/17 11:00 121 I/O 11/10/17 11/10/17 11/10/17 11/11/17 11/11/17 11/11/17 07:00 15:00 23:00 07:00 15:00 23:00 Intake Total 580 ml 960 ml 240 ml Output Total 1300 ml 1400 ml 300 ml Balance -720 ml -440 ml -60 ml Intake Oral 480 ml 960 ml 240 ml IV Total 100 ml Output Urine Total 1300 ml 1400 ml 300 ml # Voids 2 # Bowel Movements 0 1 Physical Exam Obese, sitting up, No resp distress Neck veins hard to assess Chest: decreased BS at bases, mild wheezes mid to lower lung [place] CV: S1S2 irr irr. HR dropped into 30's after metoprolol given. HR nl now. Trace-1+ edema Laboratory Laboratory Tests Test 11/11/17 04:55 White Blood Count 11.7 TH/MM3 Red Blood Count 3.42 MIL/MM3 Hemoglobin 10.3 GM/DL Hematocrit 30.9 % Mean Corpuscular Volume 90.2 FL Mean Corpuscular Hemoglobin 30.1 PG Mean Corpuscular Hemoglobin Concent 33.3 % Red Cell Distribution Width 16.0 % Platelet Count 181 TH/MM3 Mean Platelet Volume 8.8 FL Neutrophils (%) (Auto) 93.1 % Lymphocytes (%) (Auto) 3.6 % Monocytes (%) (Auto) 2.3 % Eosinophils (%) (Auto) 0.7 % Basophils (%) (Auto) 0.3 % Neutrophils # (Auto) 10.9 TH/MM3 Lymphocytes # (Auto) 0.4 TH/MM3 Monocytes # (Auto) 0.3 TH/MM3 Eosinophils # (Auto) 0.1 TH/MM3 Basophils # (Auto) 0.0 TH/MM3 CBC Comment DIFF FINAL Differential Comment Blood Urea Nitrogen 45 MG/DL Creatinine 1.94 MG/DL Random Glucose 141 MG/DL Calcium Level 9.2 MG/DL Magnesium Level 1.9 MG/DL Sodium Level 141 MEQ/L Potassium Level 4.3 MEQ/L Chloride Level 105 MEQ/L Carbon Dioxide Level 25.1 MEQ/L Anion Gap 11 MEQ/L Estimat Glomerular Filtration Rate 34 ML/MIN Imaging Last 24 hours Impressions Chest X-Ray 11/11/17 0600 Signed Impressions: Service Date/Time: Saturday, November 11, 2017 04:22 - CONCLUSION: The lungs are clear. Interval resolution of the right lower lung infiltrate. Ben Verde MD Assessment and Plan Problem List: (1) CAD (coronary artery disease) ICD Codes: I25.10 - Atherosclerotic heart disease of [place] coronary artery without angina pectoris Plan: stable (2) Atrial fibrillation with RVR ICD Codes: I48.91 - Unspecified atrial fibrillation Plan: Didn't tolerate 25mg metoprolol. HR doesn't seem that fast. Will DC metoprolol (3) Congestive heart failure ICD Codes: I50.9 - Heart failure, unspecified Status: Acute Plan: Creat bumped up - holding torsemide until lab recheck tomorrow Assessment and Plan No stable for discharge Problem Qualifiers (1) Congestive heart failure: Qualified Codes: I50.9 - Heart failure, unspecified Tong Ruiz MD Nov 11, 2017 10:37
[2017-11-11] MEDS: DOXYCYCLINE INJ 100 MG in SODIUM CHLORIDE 0.9% INJ 100 ML IV SCH ×2 (10:46→21:17)
[2017-11-11] MEDS ORDERED: MELATONIN 5 MG TAB PO ONE (19:45)
[2017-11-11] MEDS: predniSONE 20 MG TAB PO SCH (21:18)
[2017-11-12] VITALS (11 sets, daily range): BP systolic 110–123; BP diastolic 56–57; PULSE 61–86; RESP 19–20; TEMP 97.7–98.2; O2SAT 92–94
[2017-11-12 06:25] LABS: BICARBONATE 27.4 MEQ/L (21.0-32.0); CALCIUM 8.3 MG/DL (8.5-10.1); CREATININE 1.87 MG/DL (0.60-1.30); MAGNESIUM 1.8 MG/DL (1.5-2.5)
[2017-11-12] MEDS: BUDESONIDE-FORMOTEROL 80/4.5 MCG INHALER INH SCH (08:32)
[2017-11-12] MEDS: DILTIAZEM-CD 180 MG CAP ER PO SCH (08:33)
[2017-11-12] MEDS: SODIUM CHLORIDE 0.9% FLUSH 10 ML FLUSH IV FLUSH SCH (08:33)
[2017-11-12] MEDS: PANTOPRAZOLE SOD 40 MG DELAYED RELEASE TAB PO SCH (08:33)
[2017-11-12] MEDS: ATORVASTATIN 40 MG TAB PO SCH (08:34)
[2017-11-12] MEDS: ISOSORBIDE MONONITRATE 60 MG CR TAB (IMDUR) PO SCH (08:34)
[2017-11-12] MEDS: predniSONE 20 MG TAB PO SCH (08:34)
[2017-11-12] MEDS: APIXABAN 2.5 MG TABLET PO SCH (08:35)
[2017-11-12] MEDS ORDERED: FURO40TA PO (09:27)
[2017-11-12] MEDS ORDERED: PRED20 PO (09:27)
[2017-11-12] MEDS ORDERED: PANT40TA3 PO (09:27)
[2017-11-12] MEDS ORDERED: APIX2.5T PO (09:27)
[2017-11-12] MEDS ORDERED: DOXY100C PO (09:27)
[2017-11-12] MEDS ORDERED: Albuterol Hfa Inh INH (09:27)
--- NOTE | 2017-11-12 09:28 | HHI.DCPOC ---
Discharge Care Plan Diagnosis: (1) CAD (coronary artery disease) (2) Acute renal failure (3) COPD with exacerbation (4) Acute exacerbation of CHF (congestive heart failure) (5) Atrial fibrillation with RVR (6) GI bleed Goals to Promote Your Health * To prevent worsening of your condition and complications * To maintain your health at the optimal level Directions to Meet Your Goals Take your medications as prescribed Follow your dietary instruction Follow activity as directed Keep your appointments as scheduled Take your immunizations and boosters as scheduled If your symptoms worsen call your PCP, if no PCP go to Urgent Care Center or Emergency Room Smoking is Dangerous to Your Health. Avoid second hand smoke Call the 24-hour hour crisis hotline for domestic abuse at Bean Loaiza DO Nov 12, 2017 09:28
--- NOTE | 2017-11-12 10:00 | PD.CARD.PN ---
Subjective Subjective Remarks No new complaints Objective Medications Current Medications Medications (Trade) Dose Ordered Sig/Melody Route Start Time Stop Time Status Last Admin (NS Flush) 2 ml UNSCH PRN IV FLUSH 11/05/17 18:45 11/07/17 07:50 (NS Flush) 2 ml BID IV FLUSH 11/05/17 21:00 11/12/17 08:33 (Narcan Inj) 0.4 mg UNSCH PRN IV PUSH 11/05/17 18:45 (Symbicort 80-4.5 Mcg Inh) 2 puff Q12HR INH 11/05/17 21:00 11/12/17 08:32 (Cardizem Cd) 360 mg DAILY PO 11/06/17 09:00 11/12/17 08:33 (Imdur) 60 mg DAILY PO 11/06/17 09:00 11/12/17 08:34 (Prinivil) 5 mg DAILY PO 11/06/17 09:00 Future Hold 11/07/17 11:29 (Lipitor) 40 mg DAILY PO 11/06/17 09:00 11/12/17 08:34 (Pill Splitter) 1 ea UNSCH PRN OTHER 11/05/17 22:15 (Protonix) 40 mg Q12HR PO 11/08/17 21:00 11/12/17 08:33 (Proair Hfa Inh) 2 puff Q4H PRN INH 11/08/17 10:30 Doxycycline Hyclate 100 mg/ Sodium Chloride 100 ml @ 100 mls/hr Q12H IV 11/09/17 10:00 11/11/17 21:17 (Eliquis) 2.5 mg BID PO 11/10/17 11:45 11/12/17 08:35 (Demadex) 20 mg DAILY PO 11/10/17 11:45 Future Hold 11/11/17 09:27 (Deltasone) 20 mg BID PO 11/11/17 21:00 11/12/17 08:34 Vital Signs / I&O Vital Signs Date Time Temp Pulse Resp B/P (MAP) Pulse Ox O2 Delivery O2 Flow Rate FiO2 11/12/17 09:00 86 11/12/17 08:26 97.7 84 19 123/57 (79) 94 11/12/17 08:09 92 21 11/12/17 08:00 82 11/12/17 07:11 Room Air 11/12/17 07:11 83 11/12/17 06:20 80 11/12/17 05:14 85 11/12/17 04:27 70 11/12/17 03:11 98.2 75 20 110/56 (74) 93 11/12/17 03:11 93 Room Air 11/12/17 03:11 61 11/12/17 01:43 62 11/12/17 00:04 66 11/11/17 23:39 98.1 64 21 104/58 (73) 93 11/11/17 23:39 93 Room Air 11/11/17 23:39 57 11/11/17 22:00 70 11/11/17 21:25 67 11/11/17 20:13 94 11/11/17 19:20 93 Room Air 11/11/17 19:20 98.4 73 21 105/60 (75) 93 11/11/17 19:00 70 11/11/17 18:13 82 11/11/17 17:05 74 11/11/17 15:10 91 11/11/17 15:03 94 Room Air 11/11/17 15:03 97.8 75 19 120/67 (84) 94 11/11/17 14:20 82 11/11/17 13:00 90 11/11/17 12:00 89 11/11/17 11:42 96 21 11/11/17 11:01 97.8 93 19 125/65 (85) 95 11/11/17 11:01 95 Room Air 11/11/17 11:00 96 11/11/17 10:00 94 I/O 11/11/17 11/11/17 11/11/17 11/12/17 11/12/17 11/12/17 07:00 15:00 23:00 07:00 15:00 23:00 Intake Total 240 ml 1000 ml 480 ml Output Total 300 ml 900 ml Balance -60 ml 100 ml 480 ml Intake Oral 240 ml 1000 ml 480 ml Output Urine Total 300 ml 900 ml # Voids 2 3 # Bowel Movements 1 Physical Exam Obese, sitting up, No resp distress Neck no JVD Chest: much clearer CV: S1S2 irr irr. HR stable Trace-1+ edema Laboratory Laboratory Tests Test 11/12/17 04:56 Blood Urea Nitrogen 59 MG/DL Creatinine 1.87 MG/DL Random Glucose 137 MG/DL Calcium Level 8.3 MG/DL Magnesium Level 1.8 MG/DL Sodium Level 141 MEQ/L Potassium Level 4.0 MEQ/L Chloride Level 104 MEQ/L Carbon Dioxide Level 27.4 MEQ/L Anion Gap 10 MEQ/L Estimat Glomerular Filtration Rate 35 ML/MIN Assessment and Plan Problem List: (1) CAD (coronary artery disease) ICD Codes: I25.10 - Atherosclerotic heart disease of [place] coronary artery without angina pectoris Plan: stable (2) Atrial fibrillation with RVR ICD Codes: I48.91 - Unspecified atrial fibrillation Plan: rate OK (3) Congestive heart failure ICD Codes: I50.9 - Heart failure, unspecified Status: Acute Plan: stable Assessment and Plan Stable for discharge. Furosemide 40mg daily. Metolazone only if weight increases 4#. Problem Qualifiers (1) Congestive heart failure: Qualified Codes: I50.9 - Heart failure, unspecified Tong Ruiz MD Nov 12, 2017 10:00
--- NOTE | 2017-11-12 10:13 | HHI.DS ---
Discharge Summary Admission Date Nov 05, 2017 at 18:23 Discharge Date: Nov 12, 2017 Admitting Diagnosis chest pain, A. fib with RVR, GI bleed (1) GI bleed ICD Code: K92.2 - Gastrointestinal hemorrhage, unspecified Diagnosis: Principal Status: Acute (2) Acute renal failure ICD Code: N17.9 - Acute kidney failure, unspecified Diagnosis: Principal (3) COPD with exacerbation ICD Code: J44.1 - Chronic obstructive pulmonary disease with (acute) exacerbation Diagnosis: Principal (4) Acute exacerbation of CHF (congestive heart failure) ICD Code: I50.9 - Heart failure, unspecified Diagnosis: Principal (5) Atrial fibrillation with RVR ICD Code: I48.91 - Unspecified atrial fibrillation Diagnosis: Principal Procedures EGD/ colonoscopy Brief History - From Admission 77-year-old male with a past medical history significant for atrial fibrillation , anticoagulated on Eliquis, hypertension, hyperlipidemia and congestive heart failure (last echo 08/18/17 showed an EF of 55-60%) Zosyn the emergency department with a chief complaint of shortness of breath and chest tightness/ pressure. The patient reports that his symptoms have progressively worsened over the past 2 days. He also reports an increased in bilateral lower extremity edema and intermittent heart palpitations. He states he has had dark , tarry stools for the past 2 days. He denies any fevers or chills. No nausea/ vomiting/diarrhea. No dizziness or lightheadedness or fatigue. CBC/BMP: 11/11/17 0455 11/12/17 0456 Significant Findings Laboratory Tests Test 11/10/17 04:18 11/11/17 04:55 11/12/17 04:56 Red Blood Count 3.26 MIL/MM3 (4.50-5.90) 3.42 MIL/MM3 (4.50-5.90) Hemoglobin 9.8 GM/DL (13.0-17.0) 10.3 GM/DL (13.0-17.0) Hematocrit 29.2 % (39.0-51.0) 30.9 % (39.0-51.0) Blood Urea Nitrogen 30 MG/DL (7-18) 45 MG/DL (7-18) 59 MG/DL (7-18) Creatinine 1.49 MG/DL (0.60-1.30) 1.94 MG/DL (0.60-1.30) 1.87 MG/DL (0.60-1.30) Random Glucose 152 MG/DL (74-106) 141 MG/DL (74-106) 137 MG/DL (74-106) Estimat Glomerular Filtration Rate 46 ML/MIN (>89) 34 ML/MIN (>89) 35 ML/MIN (>89) Iron Level 27 MCG/DL (65-175) Percent Iron Saturation 9.5 % (20-50) Folate 18.4 NG/ML (3.1-17.5) White Blood Count 11.7 TH/MM3 (4.0-11.0) Neutrophils (%) (Auto) 93.1 % (16.0-70.0) Lymphocytes (%) (Auto) 3.6 % (9.0-44.0) Neutrophils # (Auto) 10.9 TH/MM3 (1.8-7.7) Lymphocytes # (Auto) 0.4 TH/MM3 (1.0-4.8) Calcium Level 8.3 MG/DL (8.5-10.1) Imaging Last Impressions Chest X-Ray 11/11/17 0600 Signed Impressions: Service Date/Time: Saturday, November 11, 2017 04:22 - CONCLUSION: The lungs are clear. Interval resolution of the right lower lung infiltrate. Ben Verde MD Renal Ultrasound 11/08/17 0000 Signed Impressions: Service Date/Time: November 09:21 - CONCLUSION: Benign cysts bilaterally. No concerning stone or hydronephrosis seen. Keven Freeman MD Abdomen/Pelvis CT 11/06/17 0000 Signed Impressions: Service Date/Time: Monday, November 06, 2017 16:11 - CONCLUSION: No evidence of acute abdominal or pelvic process. No masses are identified. Small bilateral effusions and right basilar atelectasis Marcos Mathis MD PE at Discharge GENERAL: NAD. SKIN: Warm and dry. HEAD: Normocephalic. EYES: No scleral icterus. No injection or drainage. NECK: Supple, trachea midline. No JVD. CARDIOVASCULAR: Irregularly irregular without gallops or rubs. RESPIRATORY: Mild bilateral wheezing. GASTROINTESTINAL: Abdomen soft, non-tender, nondistended. MUSCULOSKELETAL: No cyanosis. Trace peripheral edema. BACK: Nontender without obvious deformity. No CVA tenderness. NEURO: No gross deficits. PSYCH: Mood and affect appropriate. Pt update on day of discharge The patient was feeling well and wanted to go home. He had no acute complaints. He was breathing comfortably. He has been tolerating a diet. Discussed with nursing and cardiology. Hospital Course Atrial fibrillation with RVR/ CHF exacerbation The pt presented with chest pain and shortness of breath. Found to have A fib with RVR, which has resolved. Diltiazem drip has been weaned to PO Cardizem. Negative ACS workup. Cardiology was consulted. Lopressor was added but the pt did not tolerate it. The pt's heart rate remained controlled on diltiazem. Eliquis was resumed at a lower dose. He will follow up with cardiology as an outpt. GI bleed S/p Protonix drip. GI was consulted. No signs of bleeding on EGD/colonoscopy. Labs consistent with iron deficiency anemia. Eliquis was resumed at a lower dose by cardiology. The pt will continue a PPI BID. He will have a repeat CBC in 3-5 days. He will follow up with GI as an outpt. Dyspnea/ PNA/ COPD Diffuse wheezing on exam. CXR with right infiltrates. He endorsed pleuritic chest pain while using incentive spirometry. Wheezing has improved significantly. Repeat chest x-ray 11/11/17 with resolution of infiltrates. He received inhalers. He was started on IV doxycycline and will complete a course of PO doxycycline. sputum culture. We changed IV Solumedrol to by mouth prednisone and he will taper off of that over the next few days. He passed the home oxygen walk test. He will be discharged with an inhaler. Acute kidney injury Nephrology was consulted. Renal US unremarkable. We held his LISSET inhibitor. Diuretics were discontinued. His creatinine stabilized. He will resume Lasix 40 mg daily on 11/13 per cardiology. He will have a repeat BMP in 3-5 days. He will follow up with nephrology as an outpt. Pt Condition on Discharge: Stable Discharge Disposition: Discharge Home Discharge Time: > 30 minutes Discharge Instructions DIET: Follow Instructions for: Heart Healthy Diet Activities you can perform: Regular-No Restrictions Follow up Referrals: Cardiology - 1 Week with Tong Ruiz MD Gastroenterology - 1 Week with Ilya Brady MD Nephrology - [address] Carlson PCP Follow-up - 1 Week New Orders: BASIC METABOLIC PROF - 3-5 Days CBC NO DIFF - 3-5 Days New Medications: Doxycycline Hyclate (Doxycycline Hyclate) 100 Mg Cap 100 MG PO BID for Infection for 4 Days, #8 CAP 0 Refills Apixaban (Eliquis) 2.5 Mg Tab 2.5 MG PO BID for Blood Clot Prevention, #60 TAB Pantoprazole (Pantoprazole) 40 Mg Tab 40 MG PO Q12HR for Stomach, #60 TAB Prednisone (Prednisone) 20 Mg Tab 20 MG PO BID for Breathing for 3 Days, #6 TAB [Albuterol Hfa Inh] () 60 PUFF/8 GM AERO 2 PUFF INH Q4H PRN for dyspnea, #1 INHALER Changed Medications: Furosemide (Furosemide) 40 Mg Tab 40 MG PO DAILY for Fluid, #30 TAB 0 Refills (Medication details modified) Take first dose 11/13/17 Continued Medications: Budesonide-Formoterol Inh (Symbicort Inh) 80-4.5 Mcg/Act Aero 2 PUFF INH Q12HR for Asthma Management, #1 INHALER 0 Refills Cholecalciferol (Vitamin D-1000) 1,000 Unit Tab 2000 UNITS PO DAILY for Nutritional Supplement, #1 BOTTLE 0 Refills Cyanocobalamin (Vitamin B-12) 1,000 Mcg Tab 1000 MCG PO DAILY for Nutritional Supplement, #1 BOTTLE 0 Refills Diltiazem CD 24 HR (Diltiazem CD 24 HR) 360 Mg Capcr 360 MG PO DAILY, #30 CAP 0 Refills Ferrous Sulfate (Ferrous Sulfate) 325 Mg (65 Mg Iron) Tablet 325 MG PO DAILY for Nutritional Supplement, #30 TAB 0 Refills Isosorbide Mononitrate (Isosorbide Mononitrate) 20 Mg Tab 60 MG PO DAILY for Prevent Chest Pain, #60 TAB 0 Refills Take 2 doses 7 hours apart. Rosuvastatin (Crestor) 20 Mg Tab 20 MG PO DAILY for Cholesterol Management, #30 TAB 0 Refills [Albuterol-Ipratropium Neb] () 1 AMPULE NEBU 1 AMPULE NEB Q6HR NEB PRN for SOB/WHEEZING for 30 Days Discontinued Medications: Apixaban (Eliquis) 5 Mg Tab 5 MG PO BID for Blood Clot Prevention, #60 TAB 0 Refills Aspirin (Aspirin) 81 Mg Chew 81 MG CHEW DAILY, TAB 0 Refills Lisinopril (Lisinopril) 10 Mg Tab 25 MG PO DAILY, #30 TAB 0 Refills Bean Loaiza DO Nov 12, 2017 10:13
== END 2017-11-12 10:23 | disposition home or self-care (01) | DRG 377 ==
LOC: NEPE 16:48 → NEDA 18:23 → HCPC 20:45
PROVIDERS: ADMIT Hospitalist; ATTEND Hospitalist
PROC: 0D5P8ZZ Destruction of Rectum, Via Natural or Artificial Opening Endoscopic (ICD-10-PCS; 2017-11-07)
PROC: 0D5N8ZZ Destruction of Sigmoid Colon, Via Natural or Artificial Opening Endoscopic (ICD-10-PCS; 2017-11-07)
PROC: 0DB78ZX Excision of Stomach, Pylorus, Via Natural or Artificial Opening Endoscopic, Diagnostic (ICD-10-PCS; principal; 2017-11-07 09:35)
PROC: 0DBN8ZX Excision of Sigmoid Colon, Via Natural or Artificial Opening Endoscopic, Diagnostic (ICD-10-PCS; 2017-11-07 09:35)
DX: K92.2 Gastrointestinal hemorrhage, unspecified (principal); I50.43 Acute on chronic combined systolic (congestive) and diastolic (congestive) heart failure; J18.9 Pneumonia, unspecified organism; N17.9 Acute kidney failure, unspecified; I95.9 Hypotension, unspecified; I13.0 Hypertensive heart and chronic kidney disease with heart failure and stage 1 through stage 4 chronic kidney disease, or unspecified chronic kidney disease; I48.91 Unspecified atrial fibrillation; J44.1 Chronic obstructive pulmonary disease with (acute) exacerbation; J44.0 Chronic obstructive pulmonary disease with (acute) lower respiratory infection; N18.3 Chronic kidney disease, stage 3 (moderate); E78.5 Hyperlipidemia, unspecified; I25.10 Atherosclerotic heart disease of native coronary artery without angina pectoris; K29.70 Gastritis, unspecified, without bleeding; I73.9 Peripheral vascular disease, unspecified; D50.9 Iron deficiency anemia, unspecified; G47.30 Sleep apnea, unspecified; I25.5 Ischemic cardiomyopathy; R06.03 Acute respiratory distress; K62.1 Rectal polyp; K63.5 Polyp of colon; E66.9 Obesity, unspecified; Z87.891 Personal history of nicotine dependence; Z79.01 Long term (current) use of anticoagulants; Z95.1 Presence of aortocoronary bypass graft; Z87.11 Personal history of peptic ulcer disease; I25.2 Old myocardial infarction
CPT/HCPCS: 71045; 71046; 74176; 76775; 80048; 80053; 80069; 81001; 82550; 82570; 82607; 82728; 82746; 83540; 83550; 83735; 83880; 84300; 84484; 85025; 85027; 85610; 85730; 86850; 86900; 86901; 88305; 93005; 94150; 94618; 96374; 96375; C9113; J1940; J2370; J2920; J7030; J7512; P9047; Q9963

== ENCOUNTER 2018-02-12 06:16 | Day surgery (SDC) | payer OTHER ==
[~2018-02-12] VITALS: Ht 177.8 cm; Wt 114.5 kg
[2018-02-12] VITALS (9 sets, daily range): BP systolic 95–147; BP diastolic 55–91; PULSE 61–111; RESP 18–22; TEMP 97.4–98.5; O2SAT 94–99
[~2018-02-12 06:16] MED LIST changes: -ALLO100T PO; +APIX2.5T PO; -APIX5TAB PO; -ASPI-516 CHEW; -AZIT250T3 PO; +Albuterol Hfa Inh INH; -DILT120C9 PO; +DILT360C12 PO; +DOXY100C PO; +FERR325T18 PO; -LISI10TA3 PO; -METO-309 PO; -NEBUKIT5; +PANT40TA3 PO; -PRED10 PO; +PRED20 PO
[2018-02-12] MEDS ORDERED: ONDANSETRON HCL 4 MG/2 ML VIAL IV PUSH ONE (06:17)
[2018-02-12] MEDS ORDERED: PHENYLEPH/NS 1000 MCG/10 ML SYR IV ONE ×2 (06:17→12:00)
[2018-02-12] MEDS ORDERED: PROPOFOL 200 MG/20 ML AMP IV ONE ×2 (06:17→12:00)
[2018-02-12] MEDS ORDERED: ROCURONIUM INJ 50 MG/5 ML VIAL IV ONE (06:17)
[2018-02-12] MEDS ORDERED: HEPARIN-NS/PF INJ 1,000 ML ONE (06:42)
[2018-02-12] MEDS ORDERED: HEPARIN SODIUM - IV 10,000 UNITS/10 ML VIAL ONE ×2 (06:43→07:08)
[2018-02-12] MEDS ORDERED: ISOPROTERENOL INJ PREMIX 50 ML IV ONE (07:06)
[2018-02-12] MEDS ORDERED: APIX5TAB PO (07:07)
[2018-02-12] MEDS ORDERED: [UNRECOGNIZED DRUG - CODE] PO (07:07)
[2018-02-12] MEDS ORDERED: PROTAMINE SULFATE 50 MG/5 ML VIAL ONE (07:07)
[2018-02-12] MEDS ORDERED: HEPARIN-NS/PF INJ 500 ML ONE (07:07)
[2018-02-12] MEDS ORDERED: LISI2.5T3 PO (07:07)
[2018-02-12] MEDS ORDERED: FURO20TA PO (07:07)
[2018-02-12] MEDS ORDERED: IPRASOL INH (07:07)
[2018-02-12] MEDS ORDERED: VENTAER INH (07:07)
[2018-02-12] MEDS ORDERED: LEVOFLOXACIN 500 MG PREMIX INJ 100 ML IV ONE (07:08)
[2018-02-12] MEDS ORDERED: VITATAB43 PO (07:08)
[2018-02-12] MEDS ORDERED: FUROSEMIDE 40 MG/4 ML VIAL ONE (07:12)
[2018-02-12 07:15] LABS: AUTOMATED NEUTROPHIL # 3.9 TH/MM3 (1.8-7.7); BASOPHIL # 0.1 TH/MM3 (0-0.2); BASOPHIL % 0.9 % (0.0-2.0); EOSINOPHIL # 0.1 TH/MM3 (0-0.4); EOSINOPHIL % 2.2 % (0.0-4.0); HEMATOCRIT 40.6 % (39.0-51.0); HEMOGLOBIN 12.9 GM/DL (13.0-17.0); LYMPH % 15.9 % (9.0-44.0); LYMPHOCYTE # 0.9 TH/MM3 (1.0-4.8); MEAN CELL VOLUME 85.2 FL (80.0-100.0); MEAN CORPUSCULAR HEMOGLOBIN 27.1 PG (27.0-34.0); MEAN CORPUSCULAR HGB CONC 31.8 % (32.0-36.0); MEAN PLATELET VOLUME 8.3 FL (7.0-11.0); MONO % 7.9 % (0.0-8.0); MONOCYTE # 0.4 TH/MM3 (0-0.9); NEUT % 73.1 % (16.0-70.0); PLATELET COUNT 122 TH/MM3 (150-450); RED BLOOD COUNT 4.76 MIL/MM3 (4.50-5.90); RED CELL DISTRIBUTION WIDTH 18.4 % (11.6-17.2); WHITE BLOOD COUNT 5.4 TH/MM3 (4.0-11.0)
[2018-02-12] MEDS ORDERED: SODIUM CHLORID 0.9% 500 ML IV PRN (07:15)
[2018-02-12] MEDS ORDERED: POVIDONE IODINE 5% (ANTISEPSIS KIT) 4 APPLICATIONS EACH NARE PRN (07:15)
[2018-02-12] MEDS ORDERED: LACTATED RINGER'S 1000 ML IV PRN (07:15)
[2018-02-12] MEDS ORDERED: CHLORHEXIDINE GLUCONATE 2 % 1 PACK (2 CLOTHS) TOPICAL PRN (07:15)
[2018-02-12] MEDS ORDERED: LORazepam 1 MG TAB SL SCH (07:15)
[2018-02-12] MEDS ORDERED: MIDAZOLAM HCL 2 MG/2 ML VIAL ONE (07:16)
[2018-02-12 07:25] LABS: INTERNATIONAL NORMALIZED RATIO 1.2 RATIO; PROTHROMBIN TIME - PATIENT 11.9 SEC (9.8-11.6)
[2018-02-12 07:27] LABS: BICARBONATE 25.8 MEQ/L (21.0-32.0); CALCIUM 8.9 MG/DL (8.5-10.1); CREATININE 1.53 MG/DL (0.60-1.30)
[2018-02-12] MEDS ORDERED: DO NOT ADM ANY ANTICOAGULANT DRUGS PRN (10:50)
--- NOTE | 2018-02-12 10:59 | CATHPROC ---
[employer] HIS Report Study Information Study Number Admission Scheduled Start Study Start [id number] Feb 12 2018 6:16AM 02/12/2018 Feb 12 2018 7:12AM [place] [facility] Electrophysiology Study Admit Source Facility Department Other [facility] - Educational Interpreter Physician and Clinical Staff Initial Rayna Holley Onshore Diver Coby Ledezma,SONALI Other Anesthesia, GUT SNATCHER Recorder Dulce Johansen RN Recorder Logan CASSIDY, Wayne Recorder Caprice Matthews BSN Scrub Bruce Weinstein RT(R) Procedures Performed Procedure Location (Site) Vessel Name Ablation Procedure Cardioversion ICE CATHETER INSERT RA Atruim RF Ablation LT. ATRIUM LT. ATRIUM Equipment Time Software Engineer Web Applications Description Size Mfg Part Number Used/Scraped NEEDLE, TRANSSEPTAL NRG 98 [id number] 07:41 [employer] Jamii Used C1 *[id number] [place] [employer]/ [place] [id number] 07:41 KIT, TRANSDUCER / AFIB Used PACER *[id number] CATHETER, TACTICATH ABLAT BUNDLE 07:41 BUNDLE-[employer]. JUANY Used 65 BUNDLE *[id number] BUNDLE [id number] CATHETER, FR7 OPTIMA SPIRAL 07:41 BUNDLE-[facility]ANY FR7 *[id number] Used BUNDLE BUNDLE [id number] 07:41 BUNDLE-[employer]ANY CATHETER, JSN, QUAD BUNDLE FR 5 *[id number] Used BUNDLE [id number] 07:41 BUNDLE-[employer] JUANY CATHETER, JSN, QUAD BUNDLE FR 5 *[id number]- Used BUNDLE [id number] SET, COOL POINT TUBING 07:41 BUNDLE-[employer]. JUANY *[id number]- Used BUNDLE BUNDLE SHEATH, FR8.5 STEERABLE SM 07:41 BUNDLE-[employer]. JUANY 71CM [id number] Used 71CM BUNDLE COVER, TRANSDUCER CABLE 612-113 07:41 [employer] Used ACUNAV *[id number] 07:41 CORDIS/PACER SHEATH, FR10 ESAU 11CM FR 10 Used *[id number] 08:46 CORDIS/PACER SHEATH, FR10 ESAU 11CM FR 10 Used *[id number] 07:41 CORDIS/PACER SHEATH, FR9 ESAU 11CM FR 9 [id number] Used [id number] 07:41 Vic[employer]o BLANKET,WARM AIR CCL * Used *[id number] 07:41 [employer] IND[employer]RIES PACK, CCL CUSTOM * Used *[id number] 07:41 MEDLINE PACER CULLEN, LIMB * 2530 *[id number] Used 08:23 [employer] MEDICAL SHEATH, FR5.5 PRELUDE 11CM FR 5 [id number] Used [id number] 07:41 NAMIC TUBING, HIGH PRESSURE 48" 48" Used *[id number] 07:41 NAMIC TUBING, HIGH PRESSURE 48" 48" Used *[id number] 07:41 [facility] MEDICAL ELECTRODE KIT, ARELY X SURFACE * Used *[id number] 707023 07:41 [facility] [employer] MEDICAL SHEATH, EPS, FR6 FAST CATH FR 6 Used *[id number] 07:41 [employer] MEDICAL SHEATH, EPS, FR7 FAST CATH FR 7 [id number] Used 139271 07:41 [facility] [employer] MEDICAL SHEATH, EPS, FR8 FAST CATH FR 8 Used *[id number] 09:03 [facility] MEDICAL SHEATH, FR8.5 SL0 [id number] Used CATHETER, ACUNAV FR10 ICE [id number] 08:53 FAWN FR 10 Used (FAWN) *[id number] [facility] PAD, ELECTROSURGICAL 07:41 * [id number] *[id number] Used SURGICAL GROUNDING (BLUE) Equipment Model, Serial, Lot Number and Expiration Data Description Model Number Serial Number Lot Number Expiration Date SHEATH, FR8.5 SL0 [id number] 11-07-2012 History: Allergies Allergy Reaction No Known Allergies History: Risk Factors Hypertension Dyslipidemia Previous Heart Failure Yes Yes Yes Chronic Lung Disease Labs Hgb (g/dl) Hct (%) RBC (MIL/MM3) WBC (l/cumm) Platelets (thousands) 11.60-17.00 35.00-51.00 4.00-5.90 4.00-11.00 150.00-450.00 12.0 40 4.7 5.4 122 Glucose (mg/dl) BUN (mg/dl) Creatinine (mg/dl) BUN:Creatinine (1:x) 74.00-106.00 7.00-18.00 0.50-1.30 10.00-20.00 97 26 1.5 17.3 Na (meq/l) K (meq/l) 136.00-145.00 3.50-5.10 145 4.1 INR (PTT:PT) 0.90-1.10 1.2 Medication Medication Total Dose (Bolus/Oral) Medication Total Dosage/Unit 1% XYLOCAINE 40 mL HEPARIN 05098 units PROTAMINE 40 mg Medications (Bolus/Oral) Medication Time Given Dosage/Unit Administered By Reason 1% XYLOCAINE 02/12/2018 8:38:56 AM 20 mL Rayna Horne 20 mL 1% XYLOCAINE given in lab by Rayna Horne in Right Groin via Subcutaneous. 1% XYLOCAINE 02/12/2018 8:49:11 AM 20 mL Rayna Horne 20 mL 1% XYLOCAINE given in lab by Rayna Horne in Right Groin via Subcutaneous. HEPARIN 02/12/2018 8:53:10 AM 90513 units Anesthesia, GUT SNATCHER As per physicians ve rbal order 16456 units HEPARIN given in lab by Anesthesia, GUT SNATCHER via Peripheral IV. Ordered by Rayna Horne. [place] son: As per physicians verbal order. HEPARIN 02/12/2018 10:00:07 AM 1000 units Anesthesia, GUT SNATCHER 1000 units HEPARIN given in lab by Anesthesia, GUT SNATCHER via Peripheral IV. Ordered by Rayna Horne. HEPARIN 02/12/2018 10:11:16 AM 2000 units Anesthesia, GUT SNATCHER 2000 units HEPARIN given in lab by Anesthesia, GUT SNATCHER via Peripheral IV. Ordered by Rayna Horne. PROTAMINE 02/12/2018 10:37:44 AM 20 mg Anesthesia, GUT SNATCHER 20 mg PROTAMINE given in lab by Anesthesia, GUT SNATCHER. Ordered by Rayna Horne. PROTAMINE 02/12/2018 10:50:23 AM 20 mg Anesthesia, GUT SNATCHER 20 mg PROTAMINE given in lab by Anesthesia, GUT SNATCHER via Peripheral IV. Ordered by Rayna Horne. Medication (Drip) Medication Time Given Dosage/Unit Concentration/Unit Diluent (ml) Solution HEPARIN DRIP 02/12/2018 9:07:14 AM 1000 units/hr 39085 units 250 D5W 1000 units/hr HEPARIN DRIP given in lab by Anesthesia, GUT SNATCHER via Peripheral IV. Pump/Drip Flow = 10 ml /hr using [place] [address] units in 250 ml. Ordered by Rayna Horne. Reason: As per physicians verbal order. ISUPREL 02/12/2018 10:17:11 AM 10 mcg/min 1 mg 250 NaCl .9 10 mcg/min ISUPREL given in lab by Anesthesia, GUT SNATCHER via Peripheral IV. Pump/Drip Flow = 150 ml/hr usi ng NaCl .9 with a concentration of 1 mg in 250 ml. Ordered by Rayna Horne. ISUPREL DRIP STOPPED 02/12/2018 10:26:54 AM 0 units/hr 0 0 units/hr ISUPREL DRIP STOPPED given in lab by Anesthesia, GUT SNATCHER. Pump/Drip Flow = 0 ml/hr using [Naila ution Name]. Ordered by Rayna Horne. LEVAQUIN 02/12/2018 7:46:37 AM 100 mL/hr 500 100 NaCl .9 100 mL/hr LEVAQUIN given in lab by Karuna GUT SNATCHER via Peripheral IV. Pump/Drip Flow = 0 ml/hr using NaCl .9 with a concentration of 500 in 100 ml. Ordered by Rayna Horne. Reason: As per physicians verbal order. Initial Case Assessment Cardiovascular HR Rhythm NIBP Chest Pain 112 af 142/85 0 Edema Present Skin color Skin Mild Normal Warm Dry Circulatory - Right Pulses Dorsalis Pedis d Scale (0,1,2,3,4,d) Circulatory - Left Pulses Dorsalis Pedis d Scale (0,1,2,3,4,d) Circulatory - Lower Extremities Color Lower Right Color Lower Left Normal Normal Neurological State Oriented to time-place- Alert Moves all extremities person Respiration - General Respiration Rate SpO2 (%) (B/min) 20 97 Final Case Assessment Cardiovascular HR Rhythm NIBP 102 st 120/57 Edema Present Skin color Skin None Normal Warm Dry Neurological State Oriented to time-place- Lethargic Moves all extremities person Respiration - General Respiration Rate (B/min) 10 Chronological Log Time Study Chronological Log 7:23:02 Patient arrived via Bed. 7:23:04 Patient Name, D.O.B, / Armband Verified By R.N. 7:23:07 Consent signed by the physician and the patient and verified by the Educational Interpreter staff. 7:23:11 Pre-op and post- op instructions given; patient acknowledges understanding of instructions. 7:23:12 Verbal Stimulation=2 Physical Stimulation=2 Airway=2 Respiration=2 TOTAL=8. (0=absent, 1=thompson ited, 2=present) 7:23:21 Anesthesia at bedside. Assumes care of patient. Vinnie Kern CRNA 7:23:43 Patient has been NPO for More than 6Hrs. 7:23:46 Skin Breakdown- 7:23:47 Patient Warmer Placed on the Table. 7:23:49 Disposable Defibrillator Pads Placed On Patient. 7:23:51 Kervin Prominences Protected 7:23:52 A # 20 IV was noted in the Forearm (left). Grade = 0 0.9ns kvo 7:23:53 A # 20 IV was noted in the Hand (right). Grade = 0 0.9ns kvo 7:23:55 History and physical on the chart. Assessment: Initial Case, EC=759 BPM, Rhythm=af, ZKFD=388/85 mmhg, Chest Pain=0, Edema=Mild, Col or=Normal, Skin = Warm, Dry Right Pulses: Lance Ped=d Left Pulses: Lance Ped=d 7:37:54 Lower Right Extremities: Color=Normal Lower Left Extremities: Color=Normal Neurological: State=Alert, Ox3, WHIPPLE Respiration: Resp=20 B/min, SpO2=97 % 100 mL/hr LEVAQUIN given in lab by Anesthesia, GUT SNATCHER via Peripheral IV. Pump/Drip Flow = 0 ml/hr using NaCl .9 with 7:46:37 a concentration of 500 in 100 ml. Ordered by Rayna Horne. Reason: As per physicians verbal ord er. 8:09:16 Anestheiologist present for intubation. 14 Fr sahu inserted by CC w/o difficutly. Clear, ye llow urine obtained. 8:15:48 Bilateral groins prepped with 2% chlorhexidine, and draped after a 3 minute waiting time. 8:31:26 MD arrived. Time Out. Correct patient, procedure, procedure equipment, site and side verified with physician present. Time 8:35:00 concurred by MD, individual staff and GUT SNATCHER. Time Out #2 - Consents verified, patient in correct position, all results are labled and display ed, safety precautions 8:35:20 taken, antibiotics administered. Time out concurred by MD, individual staff and GUT SNATCHER in procedur e 8:35:29 Case Start 8:35:39 Valerinao in progress. 8:38:09 Valeriano complete. 8:38:56 20 mL 1% XYLOCAINE given in lab by Rayna Horne in Right Groin via Subcutaneous. 8:39:31 Vascular access was obtained in the Fem Vein (left). 8:39:32 Vascular access was obtained in the Fem Vein (left). 8:39:37 Vascular access was obtained in the Fem Vein (left). 8:40:05 Vascular access was obtained in the Fem Art (left). A SHEATH, FR5.5 PRELUDE 11CM FR 5 was advanced into the Fem Art (left) using the Modified Seldin quinton technique. 8:40:20 0.9ns pressure bag connected. 8:40:55 A SHEATH, EPS, FR6 FAST CATH FR 6 was advanced into the Fem Vein (left) using the Modified S eldinger technique. 8:41:09 A SHEATH, EPS, FR7 FAST CATH FR 7 was advanced into the Fem Vein (left) using the Modified S eldinger technique. 8:41:16 A SHEATH, FR10 ESAU 11CM FR 10 was advanced into the Fem Vein (left) using the Modified Se ldinger technique. 8:43:37 10 Fr access lost. 8:46:11 Vascular access was obtained in the Fem Vein (left). Pre dilated with 8 Fr 8:47:21 A SHEATH, FR10 ESAU 11CM FR 10 was advanced into the Fem Vein (left) using the Modified Se ldinger technique. 8:49:11 20 mL 1% XYLOCAINE given in lab by Rayna Horne in Right Groin via Subcutaneous. 8:49:58 Vascular access was obtained in the Fem Vein (right). 8:50:09 A SHEATH, EPS, FR8 FAST CATH FR 8 was advanced into the Fem Vein (right) using the Modified Seldinger technique. A CATHETER, JSN, QUAD BUNDLE FR 5 was advanced vis Fem Vein (left) and placed in the CS. Placem ent was visually 8:50:50 confirmed under fluoroscopy. A CATHETER, JSN, QUAD BUNDLE FR 5 was advanced vis Fem Vein (left) and placed in the HIS. Place ment was 8:51:59 visually confirmed under fluoroscopy. A SHEATH, FR8.5 STEERABLE SM 71CM BUNDLE 71CM was exchanged in the Fem Vein (right). This was n ecessary in 8:52:37 order for catheter support. 8:52:53 CATHETER, ACUNAV FR10 ICE (FAWN) FR 10 Was Postioned. 10502 units HEPARIN given in lab by Anesthesia, GUT SNATCHER via Peripheral IV. Ordered by Julius Horne Reason: As per 8:53:10 physicians verbal order. 8:54:03 [place] in 9:00:00 Activated Clotting Time Drawn 9:04:04 [place] out A SHEATH, FR8.5 SL0 was exchanged in the Fem Vein (right) for steerable. This was necessary in order for catheter 9:04:22 support. 9:05:46 [place] in 9:05:52 [place] out 9:05:55 A eps was advanced to the right atrium and passed through the septal wall to the left atrium . 9:06:38 ACT (Normal Range 90-180) = 364 A SHEATH, FR8.5 STEERABLE SM 71CM BUNDLE 71CM was exchanged in the Fem Vein (right) for SLO. Th is was 9:06:50 necessary in order for catheter support. 1000 units/hr HEPARIN DRIP given in lab by Anesthesia, GUT SNATCHER via Peripheral IV. Pump/Drip Flow = 10 ml/hr using 9:07:14 [place] [address] units in 250 ml. Ordered by Hanscy. Coleen Reason: As per sharmila garcia verbal order. A CATHETER, FR7 OPTIMA SPIRAL BUNDLE FR7 was advanced vis Fem Vein (right) and placed in the LA . Placement 9:07:50 was visually confirmed under fluoroscopy. Mapping in progress 9:15:09 Mapping complete. Catheter was removed A CATHETER, TACTICATH ABLAT 65 BUNDLE was advanced vis Fem Vein (right) and placed in the LA. P lacement was 9:15:21 visually confirmed under fluoroscopy. 9:18:39 RF Ablation of the LT. ATRIUM with a CATHETER, TACTICATH ABLAT 65 BUNDLE. 9:27:00 Activated Clotting Time Drawn 9:32:00 ACT (Normal Range 90-180) = 349 9:42:24 MM out. AM in 9:46:10 Ablation continues 9:55:23 Activated Clotting Time Drawn 9:59:42 ACT (Normal Range 90-180) = 341 10:00:07 1000 units HEPARIN given in lab by Anesthesia, GUT SNATCHER via Peripheral IV. Ordered by Frederick Horne. 10:06:11 Activated Clotting Time Drawn 10:10:48 ACT (Normal Range 90-180) = 336 10:11:16 2000 units HEPARIN given in lab by Anesthesia, GUT SNATCHER via Peripheral IV. Ordered by Frederick Horne. 10:12:04 ablation catheter removed A CATHETER, TACTICATH ABLAT 65 BUNDLE was advanced vis Fem Vein (right) and placed in the LA. P lacement was 10:13:38 visually confirmed under fluoroscopy. 10:14:29 Ablation in progress 10:15:02 ECG rhythm of AF noted. Patient cardioverted at 300 joules. Success 10 mcg/min ISUPREL given in lab by GILA Beckman via Peripheral IV. Pump/Drip Flow = 150 ml/ hr using NaCl .9 10:17:11 with a concentration of 1 mg in 250 ml. Ordered by Rayna Horne. 10:17:57 Activated Clotting Time Drawn 10:23:53 ACT (Normal Range 90-180) = 401 0 units/hr ISUPREL DRIP STOPPED given in lab by GILA Beckman. Pump/Drip Flow = 0 ml/hr usin g [Solution Name]. 10:26:54 Ordered by Rayna Horne. 10:31:23 ablation catheter removed A SHEATH, FR9 ESAU 11CM FR 9 was exchanged in the Fem Vein (right). This was necessary in ord er to minimize 10:32:05 site leakage. 10:36:45 Catheter(s) removed without difficulty 10:37:44 20 mg PROTAMINE given in lab by GILA Beckman. Ordered by Rayna Horne. 10:39:46 Ablation procedure performed: AFIB. 10:39:49 EP Procedure was performed. 10:41:25 Sterile dressing applied to site 10:43:53 PACU called. Spoke to Dionne 10:45:33 Activated Clotting Time Drawn 10:45:50 Sheath(s) left in place, will be removed in Pacu 10:45:58 Patient extubated per anesthesia 10:46:04 Case End 10:46:28 No case complications noted. 10:46:29 Cine recording checked. 10:46:33 Bedside Report will be given. Assessment: Final Case, UM=503 BPM, Rhythm=st, RHOR=556/57 mmhg, Edema=None, Color=Normal, Skin = Warm, Dry 10:49:19 Neurological: State=Lethargic, Ox3, WHIPPLE Respiration: Resp=10 B/min 10:50:07 ACT (Normal Range 90-180) = 225 10:50:23 20 mg PROTAMINE given in lab by Anesthesia, GUT SNATCHER via Peripheral IV. Ordered by Julius Horne 10:55:30 Patient moved to stretcher 10:56:38 Activated Clotting Time Drawn 10:58:57 ACT (Normal Range 90-180) = 148 End Study - Contrast Media Used In Study Contrast Total Opened (mL) Total Used (mL) Total Wasted (mL) Omnipaque 0 0 0 End Study - Maximum Contrast Load Max Contrast Load (mL) 360.0 End Study - Radiation Exposure Fluoro Time (minutes) 1.0 End Study - Patient Disposition Complications Transferred To Interventional Outcome No Telemetry Bed successful
--- NOTE | 2018-02-12 11:40 | PD.CARD ---
Atrial Fibrillation Ablation PROCEDURES PERFORMED: 1. Electrophysiology study on Isuprel infusion 2. CS cannulation 3. 3-D mapping 4. Transseptal approach 5. Right and left heart catheterization 6. Intracardiac echo 7. Radiofrequency ablation of atrial fibrillation 8. Pulmonary vein isolation 9. Posterior wall ablation 10. Mitral valve isolation 11. Mitral line creation 12. Left atrial tachycardia ablation 13. Roof line creation 14. Floor line creation 15. Anterior wall ablation 16. Left atrial appendage isolation 17. Cardioversion INDICATIONS FOR THE PROCEDURE Mr. Fraga is a 78-year-old male with atrial fibrillation, very symptomatic, on anticoagulation, referred for electrophysiology study and ablation. The risks, the nature and the benefits of the procedure were clearly stated to him. The risks include pneumothorax, cardiac perforation, stroke, need for open heart surgery and even . The patient understood and agreed to proceed. DESCRIPTION OF THE PROCEDURE IN DETAIL As written informed consent was obtained prior to esophageal echocardiogram, the patient was kept on the table where he was prepped and draped in the usual sterile fashion. Conscious sedation was initiated and maintained throughout the procedure by the anesthesiologist. Once sedation was verified, the right and left inguinal areas were anesthetized with 2% Xylocaine. Using modified Seldinger technique, the left femoral vein was cannulated on three occasions, three guidewires were advanced. Over the wire a 6, 7 and a 10-Albanian Hemaquet were advanced. Then the left femoral artery was cannulated on one occasion, one guidewire was advanced. Over the wire a 4-Albanian Hemaquet was advanced. Then the right femoral vein was cannulated on one occasion, one guidewire was advanced. Over the wire a 8-Albanian Hemaquet was advanced. Then under fluoroscopic guidance through the 6 and 7-Albanian Hemaquet, two 5-Albanian Nicolas curved quadripolar electrophysiology catheters were advanced and placed around the His as well as coronary sinus. Basic interval was measured. The patient was in atrial fibrillation. Through the 10-Albanian Hemaquet, a CordReal Gravityter AcuNav intracardiac echo catheter was advanced and placed at the right atrium. Multiple view was obtained. There was no pericardial effusion, pulmonary vein was seen, atrial septal was visualized. Then the 8-Albanian Hemaquet in the right femoral vein was exchanged for [employer] transseptal sheath that was placed all the way to the superior vena cava. Through the sheath a Kulwant needle was advanced, then the sheath, the dilator and the needle were progressed until foci engaged. Once engaged, the needle was advanced. RF was delivered for 2 seconds. I was able to cross into the left atrium. Once the needle crossed, the dilator was advanced. Once the dilator crossed, the sheath was advanced. Once the sheath crossed, the dilator and the needle were removed. At this point I did flood the system and fluid movement was seen in the left atrium the indicates the sheath is in good position. The patient already received 12,000 units of heparin. The goal is to keep an ACT around 350 during ablation. Then through the sheath a St. Flo 20 pulse circumferential catheter was advanced. Using Auspherix endocardial solution mapping system, a two-dimensional configuration of the left atrium was obtained. Points were taken at the left superior and inferior veins, right superior and inferior veins, mitral valve, and appendages. Then through the sheath a St. Flo TactiCath 65cm 3.5mm irrigated tipped mapping and radiofrequency ablation catheter was advanced. Esophageal probe was placed temperature monitoring during ablation. When it increased to 0.5 degrees Celsius above baseline, I moved to a different area of the atrium. First I did isolate the left superior and inferior vein. I did make a big match-e-be-nash-she-wish band around the veins. Posterior was ablated. Then a roof line was created, a floor line was created, a mitral line was isolated, then the mitral valve was isolated. At that point the patient was in left atrial tachycardia. Left atrial appendage was isolated. I did create a line from the floor to the roof area, passing by the left atrial appendage. Then the right superior and inferior veins were isolated. I did remap the atrium. There is no significant signal in the atrium. At this point I decided to proceed with cardioversion. A 200 sync biphasic joule was delivered that converted the patient into sinus rhythm. At that point I did advance the circumferential catheter again into the vein. There was no signal into the vein, pacing from the vein showed no conduction to the atrium. Isuprel infusion was initiated at 10 mcg for over 10 minutes. No tachyarrhythmia was induced, post Isuprel no tachyarrhythmia was induced. At that point the procedure was complete. All catheters were removed, atrial septal sheath was exchanged for 9-Albanian Hemaquet, intracardiac echo showed no pericardial effusion. There is still good flow in the pulmonary vein. The patient is going to be transferred to the recovery room. No incident report. The patient tolerated the procedure. Blood loss was minimal. FINDINGS 1. Electrocardiogram: At baseline the patient was in atrial fibrillation, post procedure the patient was in sinus rhythm. 2. Basic interval: Base cycle length was around 490. Post ablation she was around 1020 milliseconds. AH at 120 and HV at 60 milliseconds. 3. Tachyarrhythmia: Atrial fibrillation was mapped and ablated. Atrial tachycardia was ablated. The ablation was successful. CONCLUSION Successful electrophysiology study, mapping, radiofrequency ablation of atrial fibrillation, left atrial tachycardia, pulmonary vein isolation, posterior ablation, mitral valve isolation, mitral line creation, roof line creation, floor line creation, left atrial tachycardia, and cardioversion. COMMENTS AND RECOMMENDATIONS The patient is going to be transferred to the telemetry unit. Will be observed and when stable can be discharged home. Rayna Horne MD Feb 12, 2018 11:40
[2018-02-12] MEDS ORDERED: oxyCODONE/ACETAMINOPHEN 5 MG/325 MG TAB PO PRN ×2 (11:45)
[2018-02-12] MEDS ORDERED: ONDANSETRON HCL 4 MG/2 ML VIAL IV PUSH PRN (11:45)
[2018-02-12] MEDS ORDERED: SODIUM CHLOR 0.9% 250 ML INJ 250 ML IV PRN (11:45)
[2018-02-12] MEDS ORDERED: ALBUTEROL SULFATE 90 MCG/ACT HFA 8 GM INHALER INH PRN (11:45)
[2018-02-12] MEDS ORDERED: LIDOCAINE HCL 1% 50 ML VIAL INFIL PRN (11:45)
[2018-02-12] MEDS ORDERED: BACITRACIN OINT 0.9 GM PKT TOP ONE (11:45)
[2018-02-12] MEDS ORDERED: LORazepam 2 MG/ML VIAL IV PUSH PRN (11:45)
[2018-02-12] MEDS ORDERED: ATROPINE SULFATE 1 MG/ML VIAL IV PUSH PRN (11:45)
[2018-02-12] MEDS ORDERED: NON-FORMULARY DRUG (Lisinopril 2.5 MG) PO SCH (11:45)
[2018-02-12] MEDS: SODIUM CHLORID 0.9% 500 ML INJ 500 ML IV SCH ×2 (11:51→23:55)
[2018-02-12] MEDS ORDERED: ROCURONIUM INJ 50 MG/5 ML SYRINGE IV PUSH ONE (12:00)
[2018-02-12] MEDS ORDERED: DEXAMETHASONE SOD PHOS 4 MG/ML VIAL IV ONE (12:00)
[2018-02-12] MEDS ORDERED: ONDANSETRON HCL 4 MG/2 ML VIAL IV ONE (12:00)
[2018-02-12] MEDS ORDERED: METOPROLOL TARTRATE 5 MG/5 ML VIAL IV ONE (12:00)
[2018-02-12] MEDS ORDERED: ISOSORBIDE MONONITRATE 20 MG TAB PO SCH (12:50)
[2018-02-12] MEDS ORDERED: PILL SPLITTER OTHER PRN (13:00)
[2018-02-12] MEDS: AMIODARONE 200 MG TAB PO SCH ×2 (13:54→20:27)
[2018-02-12] MEDS ORDERED: NON-FORMULARY DRUG (Rosuvastatin (Crestor) 20 MG) PO SCH (16:00)
[2018-02-12] MEDS ORDERED: ATORVASTATIN 40 MG TAB PO SCH (16:00)
--- NOTE | 2018-02-12 16:03 | EKG ---
Date Performed: 02/12/2018 Time Performed: 12:02:04 PTAGE: 78 years EKG: Sinus rhythm INDETERMINATE AXIS RIGHT BUNDLE BRANCH BLOCK ABNORMAL ECG PREVIOUS TRACING : 02/12/2018 07.04 Since the prior tracing, the atrial fibrillation has resolv ed. There has been some increase in the anterolateral ST-T changes. DOCTOR: Maria Luisa Farris Interpretating Date/Time 02/12/2018 16:02:11
--- NOTE | 2018-02-12 16:16 | EKG ---
Date Performed: 02/12/2018 Time Performed: 07:04:40 PTAGE: 78 years EKG: Atrial fibrillation with rapid ventricular response. Indeterminate axis Low QRS voltages in precordial leads Since the previous tracing, no significant change noted Abnormal ECG PREVIOUS TRACING :11/06/17 @06.31 DOCTOR: Maria Luisa Farris Interpretating Date/Time 02/12/2018 16:15:25
[2018-02-12] MEDS: BUDESONIDE-FORMOTEROL 80/4.5 MCG INHALER INH SCH (20:27)
[2018-02-12] MEDS: APIXABAN 5 MG TABLET PO SCH (20:27)
[2018-02-13 03:00] VITALS: BP 119/75; PULSE 74; RESP 22; TEMP 98.2; O2SAT 96
[2018-02-13 06:00] VITALS: PULSE 70
[2018-02-13 06:32] LABS: INTERNATIONAL NORMALIZED RATIO 1.2 RATIO; PROTHROMBIN TIME - PATIENT 12.4 SEC (9.8-11.6)
[2018-02-13 07:00] VITALS: BP 127/70; PULSE 65; PULSE 70; RESP 20; TEMP 98; O2SAT 96
[2018-02-13 08:00] VITALS: PULSE 64
--- NOTE | 2018-02-13 08:10 | PD.CARD.PN ---
Subjective Subjective Remarks Feeling better. Objective Medications Current Medications Medications (Trade) Dose Ordered Sig/Melody Route Start Time Stop Time Status Last Admin Sodium Chloride 500 ml @ 30 mls/hr [id number] IV 02/12/18 07:15 (Ativan) 1 mg AGED OR DISABLED CARE WORKER SL 02/12/18 07:15 02/15/18 07:14 Lactated Ringer's 1,000 ml @ 30 mls/hr Q24H PRN IV 02/12/18 07:15 02/15/18 07:14 Sodium Chloride 500 ml @ 30 mls/hr [id number] PRN IV 02/12/18 07:15 02/15/18 07:14 (Betadine 5% Antisepsis Kit) 1 applic AGED OR DISABLED CARE WORKER PRN EACH NARE 02/12/18 07:15 02/15/18 07:14 (Chlorhexidine 2% Cloth) 3 pack AGED OR DISABLED CARE WORKER PRN TOPICAL 02/12/18 07:15 02/15/18 07:14 (Percocet 5-325 Mg) 1 tab Q4H PRN PO 02/12/18 11:45 02/13/18 02:31 (Percocet 5-325 Mg) 2 tab Q4H PRN PO 02/12/18 11:45 (Ativan Inj) 0.5 mg UNSCH PRN IV PUSH 02/12/18 11:45 02/13/18 11:44 (Atropine Inj) 0.5 mg UNSCH PRN IV PUSH 02/12/18 11:45 Sodium Chloride 250 ml @ 500 mls/hr ONCE PRN IV 02/12/18 11:45 02/13/18 11:44 (Zofran Inj) 4 mg Q4H PRN IV PUSH 02/12/18 11:45 (Xylocaine 1% Inj (50 ml)) 10 ml UNSCH PRN INFIL 02/12/18 11:45 02/13/18 11:44 (Proair Hfa Inh) 2 puff Q4H PRN INH 02/12/18 11:45 (Eliquis) 5 mg BID PO 02/12/18 21:00 02/12/18 20:27 (Symbicort 80-4.5 Mcg Inh) 2 puff Q12HR INH 02/12/18 21:00 02/12/18 20:27 (Vitamin D3) 2,000 units DAILY PO 02/13/18 09:00 (Ferrous Sulfate) 325 mg DAILY PO 02/13/18 09:00 (Lasix) 20 mg DAILY PO 02/13/18 09:00 Patient Own Medication 1 ea DAILY PO 02/13/18 09:00 (Cordarone) 400 mg BID PO 02/12/18 13:00 02/17/18 07:00 02/12/18 20:27 ([facility] Nursing Information) ALL NURSING DEPARTME... UNSCH PRN .XX 02/12/18 10:50 02/13/18 10:49 (Cordarone) 200 mg DAILY PO 02/17/18 09:00 (Prinivil) 2.5 mg DAILY PO 02/13/18 09:00 (Pill Splitter) 1 ea UNSCH PRN OTHER 02/12/18 13:00 (Ismo) 60 mg DAILY PO 02/13/18 09:00 (Lipitor) 40 mg DAILY@1600 PO 02/12/18 16:00 02/12/18 15:55 Vital Signs / I&O Vital Signs Date Time Temp Pulse Resp B/P (MAP) Pulse Ox O2 Delivery O2 Flow Rate FiO2 02/13/18 07:00 70 02/13/18 06:00 70 02/13/18 03:35 18 02/13/18 03:00 74 02/13/18 03:00 98.2 74 22 119/75 (90) 96 02/12/18 23:00 98.5 63 18 109/64 (79) 94 02/12/18 23:00 63 02/12/18 19:00 65 02/12/18 19:00 97.9 65 22 104/59 (74) 97 02/12/18 18:05 70 02/12/18 17:09 68 02/12/18 16:00 74 02/12/18 15:18 99 Nasal Cannula 2.00 02/12/18 15:15 73 02/12/18 15:15 97.6 65 18 95/55 (68) 99 02/12/18 14:00 61 02/12/18 13:08 97.4 73 18 103/59 (74) 99 02/12/18 11:45 59 12 100/56 (71) 97 Nasal Cannula 2 02/12/18 11:30 68 12 106/59 (75) 98 02/12/18 11:15 98 12 125/75 (92) 97 02/12/18 11:05 97.4 68 20 105/58 (74) 94 Nasal Cannula 2 I/O 02/12/18 02/12/18 02/12/18 02/13/18 02/13/18 02/13/18 07:00 15:00 23:00 07:00 15:00 23:00 Intake Total 240 ml 960 ml Output Total 200 ml 200 ml Balance 40 ml 760 ml Intake Oral 240 ml 960 ml Output Urine Total 200 ml 200 ml # Bowel Movements 0 0 Physical Exam GENERAL: Well-nourished, well-developed patient. SKIN: Warm and dry. Groin site soft without bruising or bleeding. HEAD: Normocephalic. EYES: No scleral icterus. No injection or drainage. NECK: Supple, trachea midline. No JVD or lymphadenopathy. CARDIOVASCULAR: Regular rate and rhythm without murmurs, gallops, or rubs. RESPIRATORY: Breath sounds equal bilaterally. No accessory muscle use. GASTROINTESTINAL: Abdomen soft, non-tender, nondistended. EXTREMITIES: No cyanosis, or edema. NEUROLOGICAL: Awake, alert, and oriented x 3. Non-focal. Laboratory Laboratory Tests Test 02/13/18 05:52 Prothrombin Time 12.4 SEC Prothromb Time International Ratio 1.2 RATIO Activated Partial Thromboplast Time 29.8 SEC Assessment and Plan Problem List: (1) Atrial fibrillation with RVR ICD Codes: I48.91 - Unspecified atrial fibrillation Plan: Normal sinus rhythm on telemetry. Continue Eliquis. (2) S/P ablation of atrial fibrillation ICD Codes: Z98.890 - Other specified postprocedural states; Z86.79 - Personal history of other diseases of the circulatory system Plan: Stable for discharge home status post ablation. Follow-up with Dr. Horne in 3 weeks per my discussion with him. Contact office for any questions or concerns. An Duran Feb 13, 2018 08:10
[2018-02-13] MEDS: BUDESONIDE-FORMOTEROL 80/4.5 MCG INHALER INH SCH (08:46)
[2018-02-13] MEDS: APIXABAN 5 MG TABLET PO SCH (08:47)
[2018-02-13] MEDS: AMIODARONE 200 MG TAB PO SCH (08:47)
[2018-02-13 09:00] VITALS: PULSE 74
[2018-02-13] MEDS ORDERED: [UNRECOGNIZED DRUG - OTHER] PO SCH (09:00)
[2018-02-13] MEDS ORDERED: FUROSEMIDE 20 MG TAB PO SCH (09:00)
[2018-02-13] MEDS ORDERED: CHOLECALCIFEROL (VIT D3) 1000 UNIT TAB PO SCH (09:00)
[2018-02-13] MEDS ORDERED: FERROUS SULFATE 325 MG (65 MG ELEMENTAL IRON) TAB PO SCH (09:00)
[2018-02-13] MEDS ORDERED: ISOSORBIDE MONONITRATE 20 MG TAB PO SCH (09:00)
[2018-02-13] MEDS ORDERED: LISINOPRIL 5 MG TAB PO SCH (09:00)
--- NOTE | 2018-02-13 18:27 | EKG ---
Date Performed: 02/13/2018 Time Performed: 05:55:18 PTAGE: 78 years EKG: Sinus rhythm Prolonged QT interval Indeterminate axis Incomplete RBBB Lateral T wave changes are nonspecific Low QRS voltages in limb leads Borderline ECG PREVIOUS TRACING : 02/12/2018 12.02 Since the previous tracing, no significant change noted DOCTOR: Ehsan Cherry Interpretating Date/Time 02/13/2018 18:26:51
[2018-02-17] MEDS ORDERED: AMIODARONE 200 MG TAB PO SCH (09:00)
== END 2018-02-13 10:00 | disposition home or self-care (01) ==
LOC: HDOC 06:16 → HDIC 06:17 → HCPC 12:40 → HDOC 02-13 10:00
PROVIDERS: ATTEND Internal Medicine Interventional Cardiology
DX: I48.91 Unspecified atrial fibrillation (principal); I47.1 Supraventricular tachycardia; I11.9 Hypertensive heart disease without heart failure; I42.9 Cardiomyopathy, unspecified; E66.9 Obesity, unspecified; Z68.36 Body mass index [BMI] 36.0-36.9, adult; Z79.01 Long term (current) use of anticoagulants
CPT/HCPCS: 00537; 80048; 85002; 85025; 85610; 85730; 86850; 86900; 86901; 92960; 93005; 93312; 93320; 93325; 93613; 93623; 93656; 93662; C1730; C1731; C1732; C1759; C1766; C2630; J1100; J1644; J1956; J2250; J2370; J2405; J2720; J3010; J1940